=== PATIENT | female | born 1950 | race Caucasian/White ===

== ENCOUNTER → 2016-11-30 | Outpatient (CLI) | payer MEDICARE, BC ==
--- NOTE | 2016-11-30 08:21 | US ---
EXAMINATION TYPE: US thyroid st tissue head/neck DATE OF EXAM: 11/30/2016 7:14 AM COMPARISON: NONE CLINICAL HISTORY: 66-year-old female E04.1 THYROID NODULE. Follow up exam. TECHNIQUE: Multiple sonographic images of the thyroid gland are obtained. FINDINGS: GLAND SIZE: Right Lobe: 4.4 x 1.7 x 1.8 cm Overall Parenchyma: homogenous Left Lobe: left thyroidectomy, with an 8 mm focus of soft tissue. Isthmus Thickness: 0.3 cm The previously seen 4 mm nodule in the right upper pole is no longer identified. Bilateral neck scanned, no evidence of lymphadenopathy. IMPRESSION: 1. Status post left thyroidectomy. There is an 8 mm focus of soft tissue in the left thyroidectomy be d that could represent some residual or regenerate tissue. Correlate as to the reason for patient's p artial thyroidectomy. Follow-up as indicated. 2. The previously seen 4 mm right thyroid lobe nodule is no longer identified.
== END | disposition home or self-care (01) ==
LOC: RADUSWWP 07:01
PROVIDERS: ATTEND Family Medicine
DX: E89.0 Postprocedural hypothyroidism (principal)
CPT/HCPCS: 76536

== ENCOUNTER 2017-08-11 06:59 | Day surgery (SDC) | payer MEDICARE, BC ==
[2017-08-06 16:25] VITALS: BMI 25.8
[~2017-08-11 06:59] MED LIST: LACTATED RINGERS 1,000 ML IV SCH; LIDOCAINE 1% 20 ML VIAL (10MG/ML) FOR IV START INTRADERMA PRN
[2017-08-11] MEDS ORDERED: LACTATED RINGERS 1,000 ML IV ONE (07:08)
[2017-08-11 07:15] VITALS: RESP 16; TEMP 98.7
[2017-08-11] MEDS ORDERED: LIDOCAINE 1% INJ 10MG/ML (20 ML MDV) ONE (07:38)
[2017-08-11] MEDS ORDERED: fentaNYL (PF) 50 MCG/ML 2 ML AMP ONE (07:38)
[2017-08-11] MEDS ORDERED: PROPOFOL 10 MG/ML 20 ML VIAL IV ONE (07:38)
--- NOTE | 2017-08-11 08:03 | P.GSHP ---
History of Present Illness H&P Date: 08/11/17 Chief Complaint: Screening colonoscopy This is a 58-year-old female for from Dr. Aime Page. Patient has a history of Crohn's disease. Patient presents today for screening colonoscopy. Her last colonoscopy was over 8 years ago. Patient is a known history of anal stenosis. She is requesting anal dilation today. Past Medical History Past Medical History: Cancer, Hypertension, Thyroid Disorder Additional Past Medical History / Comment(s): Crohns, hx. thyroid cancer-2004, recent blood in stool History of Any Multi-Drug Resistant Organisms: C-DIFF Date of last positivie culture/infection: September 2016 MDRO Source:: Stool Past Surgical History: Adenoidectomy, Appendectomy, Bowel Resection, Hysterectomy, Orthopedic Surgery, Tonsillectomy Additional Past Surgical History / Comment(s): 2 COLON RESECTIONS, ISAAC CATARACTS REMOVED, left thyroidectomy, heel spur, bunionectomy Past Anesthesia/Blood Transfusion Reactions: No Reported Reaction Smoking Status: Never smoker - Past Family History Mother Family Medical History: Cancer Medications and Allergies Home Medications Medication Instructions Recorded Confirmed Type Levothyroxine Sodium [Synthroid] 88 mcg PO DAILY 10/06/14 08/11/17 History Lisinopril/Hydrochlorothiazide 0.5 tab PO DAILY 10/06/14 08/11/17 History [Lisinopril-Hctz 10-12.5 mg Tab] Multivit with Calcium,Iron,Min 1 each PO DAILY 08/06/17 08/11/17 History [Women's Multivitamin] Allergies Allergy/AdvReac Type Severity Reaction Status Date / Time No Known Allergies Allergy Verified 08/11/17 07:16 Surgical - Exam Vital Signs Temp Pulse Resp BP Pulse Ox 98.7 F 78 16 149/70 97 08/11/17 07:13 08/11/17 07:13 08/11/17 07:13 08/11/17 07:13 08/11/17 07:13 - General well developed, no distress - Eyes PERRL - ENT normal pinna - Neck no masses - Respiratory normal expansion - Cardiovascular Rhythm: regular - Abdomen Abdomen: soft, non tender Assessment and Plan Assessment: History of Crohn's disease Anal stenosis We'll perform colonoscopy with anal dilation.
--- NOTE | 2017-08-11 08:06 | P.OP ---
Date of Procedure: 08/11/17 Preoperative Diagnosis: Crohn's disease Screening colonoscopy Postoperative Diagnosis: Crohn's disease Sigmoid colon biopsy Anal stenosis Procedure(s) Performed: Colonoscopy Anal dilation Anesthesia: MAC Surgeon: Christian Yeung Pathology: other (Sigmoid colon) Condition: stable Disposition: PACU Description of Procedure: The patient was placed on the endoscopy table lateral position she received IV sedation. Digital rectal exam was performed which revealed anal stenosis. The anus was dilated with a index finger. At this point the pediatric colonoscope was then placed patient anus and passed throughout the colon. The scope could not be passed beyond the sigmoid colon secondary to inability of the bowel to dilate. The sigmoid colon appeared to be inflamed. A biopsies performed. The scope was then withdrawn. The rectum appeared normal. Scope was then withdrawn through the anus. At this point anal dilations performed by sequentially dilating the anus with the examining fingers. A second finger was placed in the anus. This held in position for 3 minutes. Next a third finger was placed anus and this was held in position for another 3 minutes. There is some minimal bleeding from the anusAppeared after the dilatation was completed patient sent to recovery room stable condition.
[2017-08-11 08:40] VITALS: BP 110/70; PULSE 58
== END 2017-08-11 09:10 | disposition home or self-care (01) ==
LOC: ORWHC2ENDO 06:59
PROVIDERS: ATTEND Surgery
DX: K51.90 Ulcerative colitis, unspecified, without complications (principal); K62.4 Stenosis of anus and rectum; I10 Essential (primary) hypertension; Z85.850 Personal history of malignant neoplasm of thyroid; E89.0 Postprocedural hypothyroidism; Z79.899 Other long term (current) drug therapy
CPT/HCPCS: 88305; 45331; J2001; J3010; J2704

== ENCOUNTER → 2017-08-18 | Outpatient (CLI) | payer MEDICARE, BC ==
--- NOTE | 2017-08-18 09:59 | CT ---
EXAMINATION TYPE: CT abdomen pelvis w con DATE OF EXAM: 08/18/2017 HISTORY: Crohn's disease CT DLP: 503.7mGycm Automated Exposure Control for Dose Reduction was Utilized. CONTRAST: CT scan of the abdomen and pelvis is performed with oral and with IV Contrast, patient injected with 80 mL of Visipaque 320. COMPARISON: None. FINDINGS: LUNG BASES: No significant abnormality is appreciated. LIVER/GB: No significant abnormality is appreciated. PANCREAS: No significant abnormality is seen. SPLEEN: No significant abnormality is seen. ADRENALS: No significant abnormality is seen. KIDNEYS: There is symmetric cortical medullary uptake with some symmetric delayed excretion in both k idneys. No gross hydronephrosis is seen bilaterally. BOWEL: Small hiatal hernia is present. The oral contrast reaches level of the mid transverse colon. T here is partial right-sided colectomy with sutures and contrast prominence at this level. Neoterminal ileum was not well-visualized. There is no suspicious small bowel dilatation. Some small bowel loops in the left upper to midabdomen show mild to moderate wall thickening, this could be product of poor distention as there is lack of enteric contrast at this level. Enteritis at this level cannot be exc luded. There is a small bowel diverticulum noted axial image 36 left lateral margin. There is moderat e to severe wall thickening centered in the mid sigmoid colon of the central pelvis with mild surroun ding fat stranding and ill-defined fluid centered near axial image 70. Extension into distal sigmoid colon is present. UTERUS/ADNEXA: Uterus is surgically absent or markedly atrophic in appearance. Remnant ovaries are fe lt present near axial image 74 and the adnexa. Pelvic phleboliths are seen. LYMPH NODES: No greater than 1cm abdominal or pelvic lymph nodes are appreciated. Some prominent but subcentimeter lymph nodes are seen at level of partial colectomy. OSSEOUS STRUCTURES: Spine is straightened on sagittal images. There is moderate disc space narrowing and vacuum disc phenomenon L1-L2 and L2-L3 levels. OTHER: No significant additional abnormality is seen. IMPRESSION: CT findings consistent with a mild to moderate active colitis at sigmoid colon level cons ider inflammatory change related to known Crohn's disease. Cannot exclude additional mild area of ent eritis left midabdomen in the mid jejunum.
== END | disposition home or self-care (01) ==
LOC: RADCTMAIN 06:27
PROVIDERS: ATTEND Surgery
DX: K50.00 Crohn's disease of small intestine without complications (principal)
CPT/HCPCS: 82565; 84520; 74177; 36415; Q9967

== ENCOUNTER → 2017-10-13 | Day surgery (SDC) | payer MEDICARE, BC ==
[~2017-10-13] MED LIST changes: +GLUCAGON 1 MG/ML VIAL IM STA; -LACTATED RINGERS 1,000 ML IV SCH; -LIDOCAINE 1% 20 ML VIAL (10MG/ML) FOR IV START INTRADERMA PRN
[2017-10-13 09:37] VITALS: TEMP 97.5
[2017-10-13 09:39] VITALS: BP 150/69; PULSE 68; RESP 18
--- NOTE | 2017-10-14 08:52 | MR ---
EXAMINATION TYPE: MR Enterography DATE OF EXAM: 10/13/2017 COMPARISON: CT abdomen and pelvis August 18, 2017. HISTORY: Crohn's disease of large intestine without complications per order. History of bowel resecti on 2 times over last 18 years. Occasional right-sided abdominal pain per patient. CONTRAST: Standard multiplanar, multisequence imaging of the abdomen is performed without and with IV contrast, patient is injected with 7 mL intravenous Gadavist gadolinium contrast. Oral Volumen and Water was g iven as per enterography protocol. FINDINGS: BOWEL: Visualized stomach show satisfactory distention without suspicious wall thickening. There is g ood distention of majority of the duodenal sweep without evidence of inflammation. Jejunal loops in l eft abdomen and ileal loops right abdomen show pretty satisfactory distention. There is no evidence o f active inflammation. No strictures are evident. There is suspected right hemicolectomy. The neoileum is likely along the right lateral margin of the remnant proximal colon. No evidence of suspicious wall thickening or inflammatory change at this leve l is identified. Up to level of sigmoid colon there is no evidence of active inflammation. Sigmoid colon shows similar to CT moderate fairly concentric wall thickening becomes more severe mid to distal aspects. This is over a length of roughly 15 to 20 cm. I get measurements of abnormal wall thickness up to 9 mm comer l series 701 image 138. There is moderate increase likely signal on T2 fat-saturated images in the wa ll. I do appreciate mild to moderate mucosal enhancement throughout the affected segment less promine nt than adjacent vessels. Some underlying ulceration is felt present. There are cystic outpouchings i n the wall or diverticula redemonstrated. There is area of mild narrowing or stricture distal aspect seen best sagittal image 6. There is no convincing evidence of asymmetric suspicious enhancement or v asa engorgement. (Comb sign). There is however irregular linear enhancement along left lateral margin extending towards left ovary through the adjacent fat seen best on postcontrast coronal images and a xial image 56 of diffusion weighted sequence. Sinus or fistula track to recent left ovary needs to BE considered. OTHER: Nondependent 1.1 cm gallstone in gallbladder axial image 40 series 301 is present. Visualized portion of pancreas, spleen, both adrenal glands as well as kidneys are unremarkable. Uter us is not visualized and presumed surgically absent. There is redemonstration of 1.6 x 1.2 cm simple appearing thin-walled cyst in the left adnexa unchang ed from recent CT. This is noted abnormal finding in postmenopausal female. IMPRESSION: There is moderate to severe Crohn's disease activity at level of sigmoid colon as detailed above. Berenice pect sinus tract or fistula towards left ovary and may be accounting for the thin-walled 1.6 cm cysti c lesion in the left adnexa. No definitive skip lesions identified.
== END ==
LOC: RADMRIMAIN 09:08
PROVIDERS: ATTEND Internal Medicine Gastroenterology
DX: K50.10 Crohn's disease of large intestine without complications (principal); N83.8 Other noninflammatory disorders of ovary, fallopian tube and broad ligament
CPT/HCPCS: 82565; 96372; 36415; 72197; 74183; J1610; A9581

== ENCOUNTER → 2017-10-23 | Outpatient (CLI) | payer MEDICARE, BC ==
[2017-10-23 08:47] LABS: Basophils % (A) 1 %; Eosinophils # (A) 0.2 k/uL (0-0.7); Eosinophils % (A) 2 %; HCT 34.7 % (34.0-46.0); HGB 10.9 gm/dL (11.4-16.0); Lymphocytes # (A) 1.4 k/uL (1.0-4.8); Lymphocytes % (A) 15 %; MCH 25.6 pg (25.0-35.0); MCHC 31.3 g/dL (31.0-37.0); MCV 81.8 fL (80.0-100.0); Mean Platelet Volume 7.1; Monocytes # (A) 0.5 k/uL (0-1.0); Monocytes % (A) 5 %; Neutrophils % (A) 76 %; Platelet Count 396 k/uL (150-450); RBC 4.25 m/uL (3.80-5.40); RDW 14.7 % (11.5-15.5); WBC 9.2 k/uL (3.8-10.6)
[2017-10-23 09:37] LABS: Erythrocyte Sedimentation Rate 29 mm/hr (0-20)
[2017-10-23 09:55] LABS: Albumin 3.7 g/dL (3.5-5.0); C Reactive Protein 19.1 mg/L (<10.0); Calcium 9.4 mg/dL (8.4-10.2); Potassium 4.5 mmol/L (3.5-5.1); Total Bilirubin 0.3 mg/dL (0.2-1.3); Total Protein 6.6 g/dL (6.3-8.2)
== END ==
LOC: LABWHC1 08:09
PROVIDERS: ATTEND Internal Medicine Gastroenterology
DX: K50.10 Crohn's disease of large intestine without complications (principal)
CPT/HCPCS: 36415; 80053; 85025; 85652; 86140; 86480; 86704; 87340

== ENCOUNTER → 2018-04-14 | Outpatient (CLI) | payer MEDICARE, BC ==
--- NOTE | 2018-04-14 13:40 | CT ---
EXAMINATION TYPE: CT abdomen wo/w con DATE OF EXAM: 04/14/2018 COMPARISON: 08/18/2017 INDICATION: abdominal pain DLP: 648.3 mGycm, Automated exposure control for dose reduction was used. CONTRAST: 80mL mL of Isovue 300. Study performed with Oral Contrast TECHNIQUE: Axial images were obtained from above the diaphragm to the pubic rami in the axial plane a t 5 mm thick sections. Reconstructed images are reviewed on the computer in the coronal plane. FINDINGS: Limited CT sections are obtained the lung bases. The lung bases are clear. CT ABDOMEN: Liver: Normal Spleen: Normal Pancreas: Normal Adrenal glands: The adrenal glands are normal. Gallbladder: Normal Kidneys: No masses are evident. No hydronephrosis is present. No cysts are present. Delayed images were obtained through the kidneys, which remain unremarkable. Aorta: Vascular calcifications within the aorta. Inferior vena cava: Normal. Bowel loops: Loops of bowel distended with oral contrast appear normal. Partial right hemicolectomy m ay have been performed. Anastomosis appears unremarkable. IMPRESSIONS: 1. No suspicious abnormality to account for abdominal pain.
== END | disposition home or self-care (01) ==
LOC: RADCTMAIN 07:20
PROVIDERS: ATTEND Family Medicine
DX: R10.9 Unspecified abdominal pain (principal)
CPT/HCPCS: 82565; 84520; 74170; 36415; Q9967

== ENCOUNTER → 2018-04-21 | Outpatient (CLI) | payer MEDICARE, BC ==
--- NOTE | 2018-04-21 07:30 | US ---
EXAMINATION TYPE: US thyroid st tissue head/neck DATE OF EXAM: 04/21/2018 COMPARISON: 2017 CLINICAL HISTORY: E04.1 Thyroid nodule. Thyroidectomy 2003 cancer GLAND SIZE: Right Lobe: 4.4x2.0x2.0 cm Overall Parenchyma: homogenous Left Lobe: 0.8x0.5x0.4 cm thyroidectomy residual 06/30/2017 not reported. The appearance appears stable. 11/30/2016: 0.8 cm size Overall Parenchyma: homogeneous Isthmus Thickness: 0.3 cm NODULES RIGHT: # of nodules measured on right: 0 LEFT: # of nodules measured on left: 0 ISTHMUS: # of nodules measured in the isthmus: 0 Bilateral neck scanned, no evidence of lymphadenopathy. IMPRESSION: 1. Postsurgical left lobe thyroidectomy with normal right lobe thyroid. 2. Examination appears stable from 06/30/2017.
--- NOTE | 2018-04-22 13:52 | MM ---
Reason for exam: screening (asymptomatic). Last mammogram was performed 2 years ago. History: Patient is postmenopausal and history of other cancer. Took hormonal contraceptives for 2 years beginning at age 18. Took estrogen for 15 years. Physical Findings: A clinical breast exam by your physician is recommended on an annual basis and results should be correlated with mammographic findings. MG 3D Screening Mammo W/Cad Bilateral CC and MLO view(s) were taken. Prior study comparison: April 10, 2016, bilateral MG 3d screening mammo w/cad. September 04, 2014, bilateral MG screening mammo w CAD. The breast tissue is heterogeneously dense. This may lower the sensitivity of mammography. Benign appearing bilateral calcifications. No suspicious abnormality. Post biopsy change on the right breast. ASSESSMENT: Benign, BI-RAD 2 RECOMMENDATION: Routine screening mammogram of both breasts in 1 year.
== END | disposition home or self-care (01) ==
LOC: RADUSWWP 06:55
PROVIDERS: ATTEND Family Medicine
DX: Z12.31 Encounter for screening mammogram for malignant neoplasm of breast (principal); Z90.89 Acquired absence of other organs; Z98.890 Other specified postprocedural states
CPT/HCPCS: 76536; 77063; 77067

== ENCOUNTER 2019-03-01 07:56 | Day surgery (SDC) | payer MEDICARE, BC ==
[2019-02-23 09:57] VITALS: BMI 24.7
[~2019-03-01 07:56] MED LIST changes: -GLUCAGON 1 MG/ML VIAL IM STA; +LACTATED RINGERS 1,000 ML IV SCH
[2019-03-01] MEDS ORDERED: LIDOCAINE 1% 20 ML VIAL (10MG/ML) FOR IV START INTRADERMA ONE (08:30)
[2019-03-01] MEDS ORDERED: PROPOFOL 10 MG/ML 20 ML VIAL IV ONE (08:48)
[2019-03-01 08:51] VITALS: TEMP 97.1
[2019-03-01] MEDS ORDERED: IV FLUID CONTINUATION 1,000 ML IV ONE (09:13)
[2019-03-01 09:16] VITALS: RESP 16
--- NOTE | 2019-03-01 09:16 | P.PCN ---
Date of Procedure: 03/01/19 Procedure(s) Performed: BRIEF HISTORY: Patient is a 68-year-old pleasant female, scheduled for an elective colonoscopy as a part of surveillance of long-standing history of Crohn's colitis diagnosed in 1999. She status post 2 surgeries one of which was easily cecectomy another 1 small bowel resection in 2009. Last colonoscopy by Dr. Yeung in August 2017 showed anal stenosis and severe inflammation the sigmoid colon and the scope could not be advanced to this area. Biopsies showed severe chronic active inflammation. The patient was a thickened esophagus on Remicade infusions in November 2017 and since then has been doing well. MR enterography in September 2017 showed severe inflammation involving the sigmoid colon. She is scheduled for colonoscopy today. PROCEDURE PERFORMED: Colonoscopy biopsy. PREOPERATIVE DIAGNOSIS: History of Crohn's colitis diagnosed in 1999/sigmoid stricture. IV sedation per Anesthesia. PROCEDURE: After informed consent was obtained, the patient, was brought into the endoscopy unit. IV sedation was administered by Anesthesia under continuous monitoring. Digital rectal examination was normal. Initially the Olympus CF-160 flexible video colonoscope was then inserted in the rectum, gradually advanced into the rectum; there was a stricture identified. With gentle manipulation and careful maneuvering as well as abdominal pressure I was slowly able to advance the scope through the stricture into the proximal colon and into the right colon. At this time the likely anastomosis was visualized that had 2 superficial erosions but no stenosis. Masses were done from this area. Mucosa of the ascending colon, transverse colon, descending colon, appeared normal. There was significant inflammation with stricture, cobblestoning of the mucosa, friability involving the distal sigmoid colon extending from 15-25 cm from the anal verge and biopsies were done from this area. Rectum appeared normal Retroflexion was performed in the rectum and no lesions were seen. The patient tolerated the procedure well. IMPRESSION: Sigmoid stricture with severe inflammation, cobblestoning of the mucosa with erosions ulcerations and friability extending from 15-25 cm from the anal verge consistent with active Crohn's colitis Rest of the of the colon appeared normal Mild information of the ileocolonic anastomosis but no strictures seen. . RECOMMENDATIONS: Findings of this examination were discussed with the patient as well as her family. She was advised to follow with the biopsy results. She will continue Remicade infusions every 8 weeks. She will be seen in office in 2-3 weeks.
[2019-03-01 10:05] VITALS: BP 125/67; PULSE 65
== END 2019-03-01 10:36 | disposition home or self-care (01) ==
LOC: ORWHC2ENDO 07:56
PROVIDERS: ATTEND Internal Medicine Gastroenterology
DX: K50.10 Crohn's disease of large intestine without complications (principal); K63.3 Ulcer of intestine; I10 Essential (primary) hypertension; E07.9 Disorder of thyroid, unspecified; Z79.890 Hormone replacement therapy; Z79.899 Other long term (current) drug therapy
CPT/HCPCS: 88305; 45380; J2704

== ENCOUNTER → 2019-04-13 | Outpatient (CLI) | payer MEDICARE, BC ==
--- NOTE | 2019-04-13 07:57 | US ---
EXAMINATION TYPE: US thyroid st tissue head/neck DATE OF EXAM: 04/13/2019 COMPARISON: 04/21/2018 CLINICAL HISTORY: E04.1 THYROID NODULE. Left thyroid lobe removed due to hx Ca 2003 GLAND SIZE: Right Lobe: 5.0 x 1.7 x 1.8 cm Overall Parenchyma: heterogenous Left Lobe reminent: 1.0 x 0.5 x 0.7 cm Overall Parenchyma: homogeneous Isthmus Thickness: 0.3 cm NODULES RIGHT: # of nodules measured on right: 0 LEFT: # of nodules measured on left: 0 ISTHMUS: # of nodules measured in the isthmus: 0 Bilateral neck scanned, no evidence of lymphadenopathy. IMPRESSION: The residual left thyroid glandular tissue appears slightly more prominent than on the prior exam how ever no new suspicious nodule is seen nor adenopathy.
== END | disposition home or self-care (01) ==
LOC: RADUSWWP 06:58
PROVIDERS: ATTEND Family Medicine
DX: E04.1 Nontoxic single thyroid nodule (principal)
CPT/HCPCS: 76536

== ENCOUNTER → 2019-06-14 | Outpatient (CLI) | payer MEDICARE, BC ==
--- NOTE | 2019-06-15 08:34 | CT ---
EXAMINATION TYPE: CT abdomen pelvis wo con DATE OF EXAM: 06/14/2019 HISTORY: Generalized abdominal pain and diverticulitis, history of Crohn's disease. CT DLP: 613 mGycm. Automated Exposure Control for Dose Reduction was Utilized. TECHNIQUE: CT scan of the abdomen and pelvis is performed with oral but without IV contrast. COMPARISON: Prior CT abdomen April 14, 2018 and older studies. FINDINGS: Within the limitations of a non-contrast study, the following observations are made. LUNG BASES: No significant abnormality is appreciated. LIVER/GB: No significant abnormality is appreciated. PANCREAS: No significant abnormality is seen. SPLEEN: No significant abnormality is seen. ADRENALS: No significant abnormality is seen. KIDNEYS: Some cortical thinning both kidneys. No renal calculi or hydronephrosis is seen bilaterally. Scattered pelvic phleboliths. No intraluminal calculus in bladder. BOWEL: Oral contrast reaches level of the mid to distal transverse colon. Surgical changes from appen dectomy and suspected partial proximal colonic resection at base of neocecum. No suspicious small bow el dilatation. Some prominence of fecal material in the proximal sigmoid colon anterior left pelvis. There is moderate to severe concentric wall thickening distal to this axial image 66 and 67 in the ce ntral pelvis. Occasional diverticula is present. Some prominence of fecal material in the rectum. Con trast filled prominence of the neocecum. Neoterminal ileum is again not well seen probably within nor mal limits. GENITAL ORGANS: Uterus surgically absent. Adjacent pelvic phleboliths redemonstrated LYMPH NODES: No greater than 1cm abdominal or pelvic lymph nodes are appreciated. OSSEOUS STRUCTURES: Moderate disc space narrowing L1-L2 and L2-L3 levels redemonstrated OTHER: No sig nificant additional abnormality is seen. IMPRESSION: Cannot exclude recurrent acute colitis at sigmoid colon level. Underlying neoplasm not ex cluded. Follow-up colonoscopy advised if it has not been performed in last 3 years after treatment. O verall nonobstructive bowel gas pattern. Moderate distal colonic fecal stasis noted.
== END | disposition home or self-care (01) ==
LOC: RADCTMAIN 14:30
PROVIDERS: ATTEND Family Medicine
DX: K59.8 Other specified functional intestinal disorders (principal)
CPT/HCPCS: 74176

== ENCOUNTER → 2020-01-02 | Outpatient (CLI) | payer MEDICARE, BC ==
--- NOTE | 2020-01-03 10:40 | ECHOF ---
Referral Reason:I10 Hypertension MEASUREMENTS -------- HEIGHT: 167.6 cm WEIGHT: 72.6 kg BP: RVIDd: 2.8 cm (< 3.3) IVSd: 0.9 cm (0.6 - 1.1) LVIDd: 5.2 cm (3.9 - 5.3) LVPWd: 0.9 cm (0.6 - 1.1) IVSs: 1.5 cm LVIDs: 2.8 cm LVPWs: 1.7 cm LAESV Index (A-L): 23.38 ml/m Ao Diam: 2.8 cm (2.0 - 3.7) AV Cusp: 2.0 cm (1.5 - 2.6) LA Diam: 3.6 cm (2.7 - 3.8) MV EXCURSION: 8.330 mm (> 18.000) MV EF SLOPE: 75 mm/s (70 - 150) EPSS: 0.7 cm MV E Eyad: 0.83 m/s MV DecT: 286 ms MV A Eyad: 0.94 m/s MV E/A Ratio: 0.89 RAP: 5.00 mmHg RVSP: 15.06 mmHg TAPSE: 30.89 mm FINDINGS -------- Sinus rhythm. This was a technically good study. The left ventricular size is normal. Left ventricular wall thickness is normal. Overall left vent ricular systolic function is normal with, an EF between 55 - 60 %. The diastolic filling pattern is normal for the age of the patient 10.27. The right ventricle is normal in size. The right ventricular systolic function is normal. The left atrial size is normal. Normal LA size by volume 22+/-6 ml/m2. The right atrial size is normal. Interatrial and interventricular septum intact. The aortic valve is trileaflet and appears structurally normal. The mitral valve is normal. There is trace mitral regurgitation. The tricuspid valve appears structurally normal. Trace tricuspid regurgitation present. Right catherine tricular systolic pressure is normal at < 35 mmHg. There is no pulmonic regurgitation present. The aortic root size is normal. Normal inferior vena cava with normal inspiratory collapse consistent with estimated right atrial pre ssure of 5 mmHg. Echo free space indicative of a pericardial fat pad. CONCLUSIONS -------- 1. Sinus rhythm. 2. This was a technically good study. 3. The left ventricular size is normal. 4. Left ventricular wall thickness is normal. 5. Overall left ventricular systolic function is normal with, an EF between 55 - 60 %. 6. The diastolic filling pattern is normal for the age of the patient 10.27 7. The right ventricle is normal in size. 8. The right ventricular systolic function is normal. 9. The left atrial size is normal. 10. Normal LA size by volume 22+/-6 ml/m2. 11. The right atrial size is normal. 12. Interatrial and interventricular septum intact. 13. The aortic valve is trileaflet and appears structurally normal. 14. The mitral valve is normal. 15. There is trace mitral regurgitation. 16. The tricuspid valve appears structurally normal. 17. Trace tricuspid regurgitation present. 18. Right ventricular systolic pressure is normal at < 35 mmHg. 19. There is no pulmonic regurgitation present. 20. The aortic root size is normal. 21. Normal inferior vena cava with normal inspiratory collapse consistent with estimated right atrial pressure of 5 mmHg. 22. Echo free space indicative of a pericardial fat pad. BRIDGE CONTRACTOR: Meri Lopez RDCS
== END | disposition home or self-care (01) ==
LOC: RADECHMAIN 12:50
PROVIDERS: ATTEND Nurse Practitioner Family
DX: I10 Essential (primary) hypertension (principal); Z91.041 Radiographic dye allergy status
CPT/HCPCS: 93306

== ENCOUNTER → 2020-04-02 | Outpatient (CLI) | payer MEDICARE, BC ==
--- NOTE | 2020-04-02 08:45 | US ---
EXAMINATION TYPE: US thyroid st tissue head/neck DATE OF EXAM: 04/02/2020 COMPARISON: 04/13/2019 CLINICAL HISTORY: 69-year-old female E04.1 THYROID NODULE. Left thyroidectomy TECHNIQUE: Multiple sonographic images of the thyroid gland are obtained. FINDINGS: GLAND SIZE: Right Lobe: 4.7 x 2.0 x 1.9 cm Overall Parenchyma: homogenous Left Lobe: 1.0 x 0.5 x 0.6 cm tissue seen in thyroid bed post left thyroidectomy Overall Parenchyma: homogeneous area Isthmus Thickness: 0.3 cm NODULES RIGHT: # of nodules measured on right: 0 LEFT: # of nodules measured on left: 0 ISTHMUS: # of nodules measured in the isthmus: 0 Bilateral neck scanned: lymph node seen superior to right thyroid = 1.0 x 0.7 x 0.3cm. This is promin ent but nonenlarged. There is fatty hilum and thin uniform cortex. IMPRESSION: 1. Status post left thyroidectomy with a small amount of residual tissue in the left thyroidectomy be d measuring 10 x 6 mm (versus 10 x 7 mm, previously), not significantly changed. 2. A prominent but nonenlarged 7 mm right-sided lymph node above the thyroid gland has benign feature s.
== END | disposition home or self-care (01) ==
LOC: RADUSWWP 08:08
PROVIDERS: ATTEND Family Medicine
DX: E04.1 Nontoxic single thyroid nodule (principal); Z90.89 Acquired absence of other organs
CPT/HCPCS: 76536

== ENCOUNTER → 2020-04-25 | Outpatient (CLI) | payer MEDICARE, BC ==
--- NOTE | 2020-04-25 13:06 | US ---
EXAMINATION TYPE: US kidneys/renal and bladder DATE OF EXAM: 04/25/2020 COMPARISON: CT 2019 CLINICAL HISTORY: N18.32 chronic kidney disease, stage 3. CKD stage 3 EXAM MEASUREMENTS: Right Kidney: 8.8 x 4.1 x 4.2 cm Left Kidney: 8.6 x 4.8 x 3.9 cm Right Kidney: measures small in size, no hydronephrosis or masses seen Left Kidney: measures small in size, no hydronephrosis or masses seen Bladder: not fully distended, appears wnl as seen Bilateral Jets seen: yes IMPRESSION: 1. Normal renal ultrasound. 2. Incidental note is made of cholelithiasis.
== END | disposition home or self-care (01) ==
LOC: RADUSWWP 12:29
PROVIDERS: ATTEND Internal Medicine Nephrology
DX: N18.32 Chronic kidney disease, stage 3b (principal)
CPT/HCPCS: 76770

== ENCOUNTER → 2020-10-24 | Outpatient (CLI) | payer MEDICARE, BC ==
[2020-10-24 11:40] LABS: Appearance,Urine Clear (Clear); Bilirubin,Urine Negative (Negative); Blood,Urine Negative (Negative); Color,Urine Yellow; Glucose,Urine (UA) Negative (Negative); Hyaline Casts,Urine 4 /lpf (0-2); Ketones,Urine Negative (Negative); Leukocyte Esterase,Urine Small (Negative); Mucus,Urine Occasional /hpf; Nitrite,Urine Negative (Negative); Protein,Urine Trace (Negative); RBC,Urine 1 /hpf (0-5); Specific Gravity,Urine 1.016 (1.001-1.035); Squamous Epithelial Cell,Urine 2 /hpf (0-4); Urobilinogen,Urine <2.0 mg/dL (<2.0); WBC,Urine 4 /hpf (0-5)
[2020-10-24 11:45] LABS: Creatinine,Urine Random 205.7 mg/dL; Protein/Creatinine Ratio,Urine 0.053
[2020-10-24 20:02] LABS: Basophils # (A) 0.03 X 10*3/uL (0.00-0.10); Basophils % (A) 0.4 %; Eosinophils # (A) 0.15 X 10*3/uL (0.04-0.35); HCT 38.9 % (37.2-46.3); HGB 12.1 g/dL (12.0-15.0); Lymphocytes # (A) 1.35 X 10*3/uL (0.90-5.00); Lymphocytes % (A) 18.3 %; MCH 28.9 pg (27.0-32.0); MCHC 31.1 g/dL (32.0-37.0); MCV 93.1 fL (80.0-97.0); Mean Platelet Volume 10.2 fL (9.5-12.2); Monocytes # (A) 0.73 X 10*3/uL (0.20-1.00); Monocytes % (A) 9.9 %; Neutrophils # (A) 5.08 X 10*3/uL (1.80-7.70); Neutrophils % (A) 69.1 %; Platelet Count 354 X 10*3/uL (140-440); RBC 4.18 X 10*6/uL (4.10-5.20); RDW 13.3 % (11.5-14.5); WBC 7.36 X 10*3/uL (4.50-10.00)
[2020-10-24 22:17] LABS: % Iron Saturation 13.28 (12.00-45.00); African American GFR (CKD) 36.9 (60.0-200.0); Albumin 4.5 g/dL (3.80-4.90); Anion Gap 9.8 mmol/L (4.00-12.00); BUN/Creat Ratio 17.5 Ratio (12.00-20.00); Calcium 9.6 mg/dL (8.7-10.3); Carbon Dioxide 24.2 mmol/L (21.6-31.8); Magnesium 2.2 mg/dL (1.5-2.4); Non-African American GFR(CKD) 31.9 (60.0-200.0); Phosphorus 4.7 mg/dL (2.4-5.1); Potassium 4.9 mmol/L (3.5-5.5); Uric Acid 6.3 mg/dL (2.9-7.7)
[2020-10-24 22:25] LABS: Ferritin 23.8 ng/mL (10.0-291.0)
== END | disposition home or self-care (01) ==
LOC: LABWHC1 09:48
PROVIDERS: ATTEND Internal Medicine Nephrology
DX: E55.9 Vitamin D deficiency, unspecified (principal); D63.1 Anemia in chronic kidney disease; N18.32 Chronic kidney disease, stage 3b; N25.81 Secondary hyperparathyroidism of renal origin; N39.0 Urinary tract infection, site not specified; M10.9 Gout, unspecified; R80.9 Proteinuria, unspecified
CPT/HCPCS: 36415; 80048; 81001; 82040; 82306; 82570; 82728; 83540; 83550; 83735; 83970; 84100; 84156; 84550; 85025

== ENCOUNTER → 2021-02-21 | Outpatient (CLI) | payer MEDICARE, BC ==
[2021-02-21 12:02] LABS: Appearance,Urine Clear (Clear); Bilirubin,Urine Negative (Negative); Blood,Urine Negative (Negative); Color,Urine Light Yellow; Glucose,Urine (UA) Negative (Negative); Ketones,Urine Negative (Negative); Leukocyte Esterase,Urine Negative (Negative); Nitrite,Urine Negative (Negative); Protein,Urine Negative (Negative); Specific Gravity,Urine 1.005 (1.001-1.035); Urobilinogen,Urine <2.0 mg/dL (<2.0)
[2021-02-21 12:36] LABS: Creatinine,Urine Random 74.7 mg/dL; Protein/Creatinine Ratio,Urine 0.268
[2021-02-21 18:25] LABS: Basophils # (A) 0.04 X 10*3/uL (0.00-0.10); Basophils % (A) 0.4 %; Eosinophils # (A) 0.14 X 10*3/uL (0.04-0.35); Eosinophils % (A) 1.5 %; HCT 37.2 % (37.2-46.3); HGB 11.9 g/dL (12.0-15.0); Lymphocytes # (A) 1.45 X 10*3/uL (0.90-5.00); Lymphocytes % (A) 15.9 %; MCH 30.4 pg (27.0-32.0); MCV 95.1 fL (80.0-97.0); Mean Platelet Volume 10.4 fL (9.5-12.2); Monocytes # (A) 0.77 X 10*3/uL (0.20-1.00); Monocytes % (A) 8.4 %; Neutrophils % (A) 73.5 %; Platelet Count 282 X 10*3/uL (140-440); RBC 3.91 X 10*6/uL (4.10-5.20); RDW 12.8 % (11.5-14.5); WBC 9.13 X 10*3/uL (4.50-10.00)
[2021-02-21 21:42] LABS: Ferritin 211.3 ng/mL (10.0-291.0)
[2021-02-21 21:44] LABS: % Iron Saturation 37.04 (12.00-45.00); African American GFR (CKD) 34.3 (60.0-200.0); Albumin 4.4 g/dL (3.80-4.90); Anion Gap 9.4 mmol/L (4.00-12.00); BUN/Creat Ratio 14.71 Ratio (12.00-20.00); Calcium 9.2 mg/dL (8.7-10.3); Carbon Dioxide 25.6 mmol/L (21.6-31.8); Magnesium 2.4 mg/dL (1.5-2.4); Non-African American GFR(CKD) 29.6 (60.0-200.0); Phosphorus 4.1 mg/dL (2.4-5.1); Potassium 4.1 mmol/L (3.5-5.5); Uric Acid 6.2 mg/dL (2.9-7.7)
== END | disposition home or self-care (01) ==
LOC: LABWHC1 10:57
PROVIDERS: ATTEND Internal Medicine Nephrology
DX: N18.32 Chronic kidney disease, stage 3b (principal); E61.1 Iron deficiency; E55.9 Vitamin D deficiency, unspecified; M10.9 Gout, unspecified; N39.0 Urinary tract infection, site not specified; R80.9 Proteinuria, unspecified
CPT/HCPCS: 36415; 80048; 81003; 82040; 82306; 82570; 82728; 83540; 83550; 83735; 83970; 84100; 84156; 84550; 85025

== ENCOUNTER 2021-04-25 11:16 | Day surgery (SDC) | payer MEDICARE, BC ==
[2021-04-22 13:59] VITALS: BMI 24.3
[2021-04-25 12:21] VITALS: RESP 16; TEMP 97.8
[2021-04-25] MEDS ORDERED: LIDOCAINE 1% (10MG/ML) FOR IV START SQ ONE (12:29)
[2021-04-25] MEDS: LACTATED RINGERS 1,000 ML IV SCH ×2 (12:29→13:15)
[2021-04-25] MEDS ORDERED: PROPOFOL 10 MG/ML 20 ML VIAL IV ONE (13:17)
--- NOTE | 2021-04-25 13:41 | P.PCN ---
Date of Procedure: 04/25/21 Procedure(s) Performed: BRIEF HISTORY: Patient is a []-year-old pleasant [] scheduled for an elective colonoscopy as a part of surveillance of long-standing history of Crohn's colitis diagnosed in 1999. She had 2 bowel surgeries the last one was in 2009. She did have a colonoscopy in February 2019 with relief sigmoid stricture with severe inflammation and cobblestoning of the mucosa and the scope couldn't be advanced through the stricture and the rest of the colon appeared normal. She has been on Remicade infusions every 8 weeks and remains in clinical remission. PROCEDURE PERFORMED: Attempted colonoscopy up to the sigmoid colon PREOPERATIVE DIAGNOSIS: Long-standing history of Crohn's colitis. IV sedation per Anesthesia. PROCEDURE: After informed consent was obtained, the patient, was brought into the endoscopy unit. IV sedation was administered by Anesthesia under continuous monitoring. Digital rectal examination was normal. Initially the Olympus CF-160 flexible video pediatric colonoscope was then inserted in the rectum, gradually advanced into the sigmoid colon and there was a tight stricture identified. At this time the scope was removed and an upper endoscopy was introduced into the rectum and gently advanced into the sigmoid colon and approximately 22 cm from the anal verge there was a tight stricture and despite multiple attempts I was not able to pass the scope through the stricture. The mucosa in the stricture appeared slightly friable but there was no active inflammation noted. There Were pseudopolyps noted in the area. Rectum appeared normal. Retroflexion was performed in the rectum and no lesions were seen. The patient tolerated the procedure well. IMPRESSION: Tight Sigmoid stricture at 22 cm from the anal verge and the scope could not be advanced through the stricture. Previously noted inflammatory changes in the sigmoid colon has resolved. The rectum and distal sigmoid colon appeared normal RECOMMENDATIONS: Findings of this examination were discussed with the patient as well as a family. At this time will continue with Remicade infusions every 8 weeks and monitor symptoms closely. We will consider surgical resection only if she becomes symptomatic in the future. She'll be seen in office in 3-4 weeks..
[2021-04-25 14:04] VITALS: BP 120/66; PULSE 73
== END 2021-04-25 14:35 | disposition home or self-care (01) ==
LOC: ORWHC2ENDO 11:16
PROVIDERS: ATTEND Internal Medicine Gastroenterology
DX: K56.699 Other intestinal obstruction unspecified as to partial versus complete obstruction (principal); K50.10 Crohn's disease of large intestine without complications; I12.9 Hypertensive chronic kidney disease with stage 1 through stage 4 chronic kidney disease, or unspecified chronic kidney disease; N18.30 Chronic kidney disease, stage 3 unspecified; E07.9 Disorder of thyroid, unspecified; M19.90 Unspecified osteoarthritis, unspecified site; Z98.890 Other specified postprocedural states; Z79.890 Hormone replacement therapy; Z79.899 Other long term (current) drug therapy
CPT/HCPCS: 45330; J2704

== ENCOUNTER → 2021-06-10 | Outpatient (CLI) | payer MEDICARE, BC ==
--- NOTE | 2021-06-10 12:46 | XR ---
EXAMINATION TYPE: XR tibia fibula LT DATE OF EXAM: 06/10/2021 CLINICAL HISTORY: pain TECHNIQUE: AP and lateral images of the left tibia and fibula are obtained. COMPARISON: None. FINDINGS: There is no acute fracture/dislocation evident. The joint spaces appear within normal sanders its. The overlying soft tissue appears unremarkable. IMPRESSION: There is no acute fracture or dislocation seen. ICD 10 NO FRACTURE, INITIAL EVALUATION
== END | disposition home or self-care (01) ==
LOC: RADXRMAIN 12:17
PROVIDERS: ATTEND Family Medicine
DX: M79.662 Pain in left lower leg (principal)

== ENCOUNTER → 2021-06-24 | Outpatient (CLI) | payer MEDICARE, BC ==
[2021-06-24 12:43] LABS: Appearance,Urine Clear (Clear); Bacteria,Urine Rare /hpf; Bilirubin,Urine Negative (Negative); Blood,Urine Negative (Negative); Color,Urine Light Yellow; Glucose,Urine (UA) Negative (Negative); Hyaline Casts,Urine 1 /lpf (0-2); Ketones,Urine Negative (Negative); Leukocyte Esterase,Urine Trace (Negative); Mucus,Urine Rare /hpf; Nitrite,Urine Negative (Negative); Protein,Urine Negative (Negative); RBC,Urine <1 /hpf (0-5); Specific Gravity,Urine 1.008 (1.001-1.035); Squamous Epithelial Cell,Urine <1 /hpf (0-4); Urobilinogen,Urine <2.0 mg/dL (<2.0); WBC,Urine 1 /hpf (0-5)
[2021-06-24 12:44] LABS: Protein/Creatinine Ratio,Urine 0.155
[2021-06-24 18:39] LABS: Basophils # (A) 0.04 X 10*3/uL (0.00-0.10); Basophils % (A) 0.4 %; Eosinophils # (A) 0.08 X 10*3/uL (0.04-0.35); Eosinophils % (A) 0.8 %; HCT 38.4 % (37.2-46.3); HGB 12.1 g/dL (12.0-15.0); Lymphocytes # (A) 1.27 X 10*3/uL (0.90-5.00); Lymphocytes % (A) 12.1 %; MCH 30.9 pg (27.0-32.0); MCHC 31.5 g/dL (32.0-37.0); Mean Platelet Volume 10.2 fL (9.5-12.2); Monocytes # (A) 0.76 X 10*3/uL (0.20-1.00); Monocytes % (A) 7.2 %; Neutrophils # (A) 8.28 X 10*3/uL (1.80-7.70); Neutrophils % (A) 78.7 %; Platelet Count 316 X 10*3/uL (140-440); RBC 3.92 X 10*6/uL (4.10-5.20); RDW 12.6 % (11.5-14.5); WBC 10.51 X 10*3/uL (4.50-10.00)
[2021-06-25 02:17] LABS: % Iron Saturation 36.54 (12.00-45.00); Albumin 4.1 g/dL (3.8-4.9); Anion Gap 13.1 mmol/L (10.00-18.00); BUN/Creat Ratio 17.25 Ratio (12.00-20.00); Blood Urea Nitrogen 22.6 mg/dL (9.0-27.0); Calcium 9.1 mg/dL (8.7-10.3); Carbon Dioxide 21.9 mmol/L (20.0-27.5); Magnesium 2.1 mg/dL (1.5-2.4); Non-African American GFR(CKD) 40.6 (60.0-200.0); Phosphorus 3.9 mg/dL (2.4-5.1); Potassium 3.8 mmol/L (3.5-5.5); Uric Acid 5.4 mg/dL (2.9-7.7)
== END | disposition home or self-care (01) ==
LOC: LABWHC1 10:27
PROVIDERS: ATTEND Nurse Practitioner Family
DX: E55.9 Vitamin D deficiency, unspecified (principal); E61.1 Iron deficiency; M10.9 Gout, unspecified; N39.0 Urinary tract infection, site not specified; N18.32 Chronic kidney disease, stage 3b; R80.9 Proteinuria, unspecified
CPT/HCPCS: 36415; 80048; 81001; 82040; 82306; 82570; 82728; 83540; 83550; 83735; 83970; 84100; 84156; 84550; 85025

== ENCOUNTER → 2022-01-02 | Outpatient (CLI) | payer MEDICARE ==
[2022-01-02 10:54] LABS: Creatinine,Urine Random 41.8 mg/dL; Protein/Creatinine Ratio,Urine 0.311
[2022-01-02 14:36] LABS: Basophils # (A) 0.04 X 10*3/uL (0.00-0.10); Basophils % (A) 0.4 %; Eosinophils # (A) 0.12 X 10*3/uL (0.04-0.35); Eosinophils % (A) 1.2 %; HCT 35.9 % (37.2-46.3); HGB 11.2 g/dL (12.0-15.0); Immature Grans, Automated 0.4 %; Lymphocytes # (A) 1.46 X 10*3/uL (0.90-5.00); Lymphocytes % (A) 14.9 %; MCH 29.8 pg (27.0-32.0); MCHC 31.2 g/dL (32.0-37.0); MCV 95.5 fL (80.0-97.0); Monocytes # (A) 0.83 X 10*3/uL (0.20-1.00); Monocytes % (A) 8.4 %; NRBC Per 100 WBC 0 /100 WBCS (0.0-0.0); Neutrophils # (A) 7.34 X 10*3/uL (1.80-7.70); Neutrophils % (A) 74.7 %; Platelet Count 321 X 10*3/uL (140-440); RBC 3.76 X 10*6/uL (4.10-5.20); RDW 12.3 % (11.5-14.5); WBC 9.83 X 10*3/uL (4.50-10.00)
[2022-01-02 15:15] LABS: African American GFR (CKD) 39.6 (60.0-200.0); Anion Gap 9.9 mmol/L (10.00-18.00); BUN/Creat Ratio 18.47 Ratio (12.00-20.00); Blood Urea Nitrogen 27.7 mg/dL (9.0-27.0); Calcium 9.2 mg/dL (8.7-10.3); Carbon Dioxide 23.1 mmol/L (20.0-27.5); Non-African American GFR(CKD) 34.2 (60.0-200.0); Potassium 4.6 mmol/L (3.5-5.5)
[2022-01-02 20:33] LABS: % Iron Saturation 15.35 (12.00-45.00)
[2022-01-02 21:34] LABS: Appearance,Urine Clear (Clear); Bilirubin,Urine Negative (Negative); Blood,Urine Negative (Negative); Color,Urine Yellow (Yellow); Ketones,Urine Negative (Negative); Nitrite,Urine Negative (Negative); PH, Urine 5.5 (5.0-8.0); Specific Gravity,Urine 1.006 (1.001-1.030); Urobilinogen,Urine 0.2 (0.2,1.0)
== END | disposition home or self-care (01) ==
LOC: LABWHC1 09:02
PROVIDERS: ATTEND Nurse Practitioner Family
DX: D64.9 Anemia, unspecified (principal); E61.1 Iron deficiency; N18.32 Chronic kidney disease, stage 3b; N39.0 Urinary tract infection, site not specified; R80.9 Proteinuria, unspecified
CPT/HCPCS: 36415; 80048; 81003; 82570; 82728; 83540; 83550; 84156; 85025

== ENCOUNTER 2022-01-14 11:30 | Day surgery (SDC) | payer MEDICARE, BC ==
[2022-01-12 15:18] VITALS: BMI 24.2
[~2022-01-14 11:30] MED LIST changes: +DEXAMETHASONE SOD PHOSPHATE 4 MG/ML 1 ML VIAL IV ONE; +HYDROmorphone 0.5 MG/0.5 ML SYRINGE IVP PRN; -LACTATED RINGERS 1,000 ML IV SCH; +LIDOCAINE 1% (10MG/ML) FOR IV START INTRADERMA PRN; +Pre Op ABX Message 1 EACH MISC MISCELLANE ONE
[2022-01-14] MEDS: LACTATED RINGERS 1,000 ML IV SCH ×3 (11:52→15:03)
[2022-01-14 11:58] VITALS: RESP 18; TEMP 97.8
[2022-01-14] MEDS: ONDANSETRON 4 MG/2 ML VIAL IVP ONE ×2 (11:59→14:27)
[2022-01-14] MEDS ORDERED: MIDAZOLAM 2 MG/2 ML VIAL ONE (12:46)
[2022-01-14] MEDS ORDERED: fentaNYL (PF) 50 MCG/ML 2 ML AMP ONE (12:46)
[2022-01-14] MEDS ORDERED: LIDOCAINE 2% INJ 20 MG/ML (2 ML VIAL) ONE (12:46)
[2022-01-14] MEDS ORDERED: KETAMINE 10 MG/ML 20 ML VIAL ONE (12:46)
[2022-01-14] MEDS ORDERED: PROPOFOL 10 MG/ML 20 ML VIAL IV ONE (12:46)
[2022-01-14] MEDS ORDERED: BUPIVACAINE (PF) 0.25% 30 ML VIAL SQ ONE (13:05)
--- NOTE | 2022-01-14 13:51 | P.OP ---
Date of Procedure: 01/14/22 Preoperative Diagnosis: Soft tissue mass below the first metatarsal phalangeal joint left foot Postoperative Diagnosis: Same diagnosis pending path report Procedure(s) Performed: Excision of soft tissue mass below the first metatarsal phalangeal joint left foot Surgeon: Dallas Stephens Description of Procedure: On the date of surgery the patient was taken to the operating room in good condition placed on the operating table in a supine position where an IV was started and adequate IV anesthetic agents were utilized. Anesthesia was then further supplemented with approximately 15 mL of 0.25% plain Marcaine given in a Warren type block to the first ray complex of the patient's left foot. The patient's left foot was then prepped and draped in the usual aseptic manner. Over heavy web roll padding an ankle tourniquet was placed above the malleoli of the patient's left ankle utilizing an Esmarch bandage the left foot and ankle were elevated and exsanguinated of blood and after approximately 1 minutes. A time the ankle tourniquet was inflated to approximately 250 mmHg This point in time attention was directed to the plantar medial side of the first metatarsal phalangeal joint where a 5 cm linear incision was made vision was deepened via sharp dissection down through the level of subcutaneous tissue layers all neurovascular structures encountered were identified isolated and were retracted and any bleeding vessels were clamped electrocauterized dissection was then carried deep across the plantar aspect of the first metatarsal phalangeal joint a white Rosaura mass was identified clamped isolated and excised in total from the surgical site the surgical site was then inspected for any remaining portions of the mass and none were seen. All neurovascular structures were clamped electrocauterized. Subcutaneous tissue was then coaptated and maintained utilizing 3-0 Vicryl simple interrupted suture and the skin was closed utilizing 4-0 nylon simple interrupted suture surgical site was dressed with Adaptic Kerlix fluffs four-inch conformer and 4 inch Coban ankle tourniquet to the patient's left ankle was deflated adequate hemostatic return was seen in all digits of the left foot specifically the left hallux. The patient tolerated the surgery and anesthesia well was taken to the recovery room in good postoperative condition
[2022-01-14] MEDS ORDERED: ONDANSETRON 4 MG/2 ML VIAL ONE (14:23)
[2022-01-14 14:40] VITALS: BP 153/69; PULSE 60
--- NOTE | 2022-01-20 08:28 | CDI ---
Documentation Clarification Form Date: 01/20/2022 08:23:38 AM From: Randa Terrazas Phone: Admit Date: 01/14/2022 11:30:00 AM Patient Name: Perla Rosen Visit Number: [id number] Discharge Date: Payor: MEDICARE Dear Dr. Stephens, Could you please document the size of the soft tissue mass excised? Please respond below the line. Thank you The size of the lesion was 2.5 cm by 2.0 cm by 1.5 cm MTDD
== END 2022-01-14 15:09 | disposition home or self-care (01) ==
LOC: OR 11:30
PROVIDERS: ATTEND Podiatrist Foot & Ankle Surgery
DX: M79.9 Soft tissue disorder, unspecified (principal); I10 Essential (primary) hypertension; E07.9 Disorder of thyroid, unspecified; N28.9 Disorder of kidney and ureter, unspecified; K50.90 Crohn's disease, unspecified, without complications; Z79.899 Other long term (current) drug therapy; Z79.890 Hormone replacement therapy; Z91.041 Radiographic dye allergy status; Z98.890 Other specified postprocedural states; Z90.49 Acquired absence of other specified parts of digestive tract
CPT/HCPCS: 88305; 28039; J2250; J1100; J2405; J3010; J2704; J2001

== ENCOUNTER → 2022-04-04 | Outpatient (CLI) | payer MEDICARE, BC ==
[2022-04-04 11:41] LABS: Basophils # (A) 0.03 X 10*3/uL (0.00-0.10); Basophils % (A) 0.3 %; HCT 35.8 % (37.2-46.3); HGB 11.5 g/dL (12.0-15.0); Immature Grans, Automated 0.4 %; Lymphocytes % (A) 14.7 %; MCH 29.9 pg (27.0-32.0); MCHC 32.1 g/dL (32.0-37.0); Mean Platelet Volume 10.1 fL (9.5-12.2); Monocytes # (A) 0.81 X 10*3/uL (0.20-1.00); Monocytes % (A) 7.9 %; NRBC Per 100 WBC 0 /100 WBCS (0.0-0.0); Neutrophils # (A) 7.71 X 10*3/uL (1.80-7.70); Neutrophils % (A) 75.7 %; Platelet Count 371 X 10*3/uL (140-440); RBC 3.85 X 10*6/uL (4.10-5.20); RDW 13.2 % (11.5-14.5); WBC 10.19 X 10*3/uL (4.50-10.00)
[2022-04-04 11:51] LABS: % Iron Saturation 26.34 (12.00-45.00); African American GFR (CKD) 45.4 (60.0-200.0); Anion Gap 13.1 mmol/L (10.00-18.00); BUN/Creat Ratio 19.25 Ratio (12.00-20.00); Blood Urea Nitrogen 25.8 mg/dL (9.0-27.0); Calcium 9.4 mg/dL (8.7-10.3); Carbon Dioxide 23.3 mmol/L (20.0-27.5); Magnesium 2.2 mg/dL (1.5-2.4); Non-African American GFR(CKD) 39.2 (60.0-200.0); Phosphorus 3.7 mg/dL (2.4-5.1); Potassium 5.2 mmol/L (3.5-5.5); Uric Acid 6.1 mg/dL (2.9-7.7)
[2022-04-04 12:08] LABS: Appearance,Urine Cloudy (Clear); Bilirubin,Urine Negative (Negative); Blood,Urine Trace (Negative); Color,Urine Yellow (Yellow); Ketones,Urine Negative (Negative); Nitrite,Urine Negative (Negative); PH, Urine 5.5 (5.0-8.0); Urobilinogen,Urine 0.2 (0.2,1.0)
[2022-04-04 12:11] LABS: Albumin 4.1 g/dL (3.8-4.9)
[2022-04-04 12:44] LABS: Bacteria,Urine 3+ /HPF (None Seen); Urine Creatinine 70.4 mg/dL (28.0-217.0)
== END | disposition home or self-care (01) ==
LOC: LABWHC1 07:58
PROVIDERS: ATTEND Internal Medicine Nephrology
DX: E21.3 Hyperparathyroidism, unspecified (principal); N18.32 Chronic kidney disease, stage 3b; E55.9 Vitamin D deficiency, unspecified; M10.9 Gout, unspecified; N39.0 Urinary tract infection, site not specified; R80.9 Proteinuria, unspecified; D63.1 Anemia in chronic kidney disease
CPT/HCPCS: 36415; 80048; 81001; 82040; 82043; 82306; 82570; 82728; 83540; 83550; 83735; 83970; 84100; 84550; 85025

== ENCOUNTER → 2022-05-05 | Outpatient (CLI) | payer MEDICARE, BC ==
--- NOTE | 2022-05-06 08:12 | MM ---
Reason for Exam: Screening (asymptomatic). Last mammogram was performed 4 year(s) and 0 month(s) ago. Patient History: Menarche at age 11. First Full-Term at age 16. Left ovary removed at age 31. Right ovary removed at age 31. Hysterectomy at age 31. Postmenopausal. Other cancer. Patient used Estrogen for 15 years. Hormonal Contraceptives, starting at age 18 for 2 years. Risk Values: Akosua 5 year model risk: 1.3%. NCI Lifetime model risk: 3.1%. Prior Study Comparison: 09/04/2014 Bilateral Screening Mammogram, [facility]. 04/10/2016 Bilateral Screening Mammogram, [facility]. 04/21/2018 Bilateral Screening Mammogram, [facility]. Tissue Density: The breast tissue is heterogeneously dense. This may lower the sensitivity of mammography. Findings: Analyzed By CAD. There is no suspicious group of microcalcifications or new suspicious mass in either breast. Benign calcifications within both breasts. No significant change from prior exams. Overall Assessment: Benign, BI-RAD 2 Management: Screening Mammogram of both breasts in 1 year. A clinical breast exam by your physician is recommended on an annual basis and results should be correlated with mammographic findings. Electronically signed and approved by: Rashard Donato D.O.
--- NOTE | 2022-05-06 08:12 | MM ---
Reason for Exam: Screening (asymptomatic). Last mammogram was performed 4 year(s) and 0 month(s) ago. Patient History: Menarche at age 11. First Full-Term at age 16. Left ovary removed at age 31. Right ovary removed at age 31. Hysterectomy at age 31. Postmenopausal. Other cancer. Patient used Estrogen for 15 years. Hormonal Contraceptives, starting at age 18 for 2 years. Risk Values: Akosua 5 year model risk: 1.3%. NCI Lifetime model risk: 3.1%. Prior Study Comparison: 09/04/2014 Bilateral Screening Mammogram, [facility]. 04/10/2016 Bilateral Screening Mammogram, [facility]. 04/21/2018 Bilateral Screening Mammogram, [facility]. Tissue Density: The breast tissue is heterogeneously dense. This may lower the sensitivity of mammography. Findings: Analyzed By CAD. There is no suspicious group of microcalcifications or new suspicious mass in either breast. Benign calcifications within both breasts. No significant change from prior exams. Overall Assessment: Benign, BI-RAD 2 Management: Screening Mammogram of both breasts in 1 year. A clinical breast exam by your physician is recommended on an annual basis and results should be correlated with mammographic findings. Electronically signed and approved by: Rashard Donato D.O.
== END | disposition home or self-care (01) ==
LOC: RADMAMWWP 06:59
PROVIDERS: ATTEND Family Medicine
DX: Z12.31 Encounter for screening mammogram for malignant neoplasm of breast (principal); Z78.0 Asymptomatic menopausal state
CPT/HCPCS: 77063; 77067

== ENCOUNTER 2022-06-16 11:46 | Emergency (ER) | payer MEDICARE, BC ==
[2022-06-16 11:56] VITALS: RESP 16; TEMP 97.8
--- NOTE | 2022-06-16 12:34 | ED ---
General Adult HPI - General Chief complaint: Syncope Stated complaint: syncope Time Seen by Provider: 06/16/22 12:21 Source: patient Mode of arrival: wheelchair Limitations: no limitations - History of Present Illness Initial comments: This patient is a 71-year-old woman who presents with complaint that she is feeling fatigue, generalized weakness, and she passed out today. Patient states she was diagnosed with influenza A approximately one week ago. She had been seen by her primary physician who gave her a steroid injection and a Dosepak. She states that she finished that medicine but she hasn't been feeling much better. She states that yesterday she didn't really eat or drink much at all. Today she had gotten up and was walking to the bathroom. She notes that she was feeling funny and lightheaded. Her was walking her to the bathroom and noticed that she passed out and he lowered her to the ground. Patient denies any injury. She states that she was not having any chest pain, palpitations, dyspnea or diaphoresis. -: days(s) Severity scale (1-10): 0 Consistency: constant Improves with: none Worsens with: none Associated Symptoms: syncope Treatments Prior to Arrival: none - Related Data Home Medications Medication Instructions Recorded Confirmed Levothyroxine Sodium [Synthroid] 88 mcg PO DAILY 10/06/14 06/16/22 inFLIXimab [Remicade] 500 mg IVPB Q56D 02/23/19 06/16/22 Ergocalciferol (Vitamin D2) 1,250 mcg PO Q30D 04/22/21 06/16/22 [Drisdol (50,000 Iu)] amLODIPine [Norvasc] 5 mg PO BID 01/12/22 06/16/22 carvediloL [Coreg] 6.25 mg PO BID 06/16/22 06/16/22 Previous Rx's Medication Instructions Recorded Azithromycin [Zithromax] 0 mg PO DIRECTED #6 tab 06/16/22 Allergies Allergy/AdvReac Type Severity Reaction Status Date / Time No Known Allergies Allergy Verified 06/16/22 13:41 Review of Systems ROS Statement: Those systems with pertinent positive or pertinent negative responses have been documented in the HPI. ROS Other: All systems not noted in ROS Statement are negative. Constitutional: Denies: fever, chills, weakness Respiratory: Reports: cough. Denies: dyspnea Cardiovascular: Denies: chest pain, palpitations, edema Gastrointestinal: Denies: abdominal pain, nausea, vomiting, diarrhea, constipation, melena, hematochezia Genitourinary: Denies: dysuria, hematuria Musculoskeletal: Denies: back pain Skin: Denies: rash Neurological: Denies: headache, weakness, numbness Past Medical History Past Medical History: Cancer, Hypertension, Osteoarthritis (OA), Renal Disease, Skin Disorder, Thyroid Disorder Additional Past Medical History / Comment(s): HX Crohns, hx.left thyroid cancer- 2004, chronic kidney disease stage 3, eczema, History of Any Multi-Drug Resistant Organisms: C-DIFF Date of last positivie culture/infection: September 2016 MDRO Source:: Stool Past Surgical History: Adenoidectomy, Appendectomy, Bowel Resection, Hysterectomy, Orthopedic Surgery, Tonsillectomy Additional Past Surgical History / Comment(s): 2 COLON RESECTIONS, ISAAC CATARACTS REMOVED, left thyroidectomy, heel spur left foot, bunionectomy left foot Past Anesthesia/Blood Transfusion Reactions: Motion Sickness Past Psychological History: No Psychological Hx Reported Smoking Status: Never smoker - Past Family History Mother Family Medical History: Cancer Additional Family Medical History / Comment(s): leukemia General Exam Limitations: no limitations General appearance: alert, in no apparent distress Head exam: Present: atraumatic, normocephalic Eye exam: Present: normal appearance ENT exam: Present: mucous membranes dry Neck exam: Present: normal inspection Respiratory exam: Present: normal lung sounds bilaterally. Absent: respiratory distress, wheezes, rales, rhonchi, stridor Cardiovascular Exam: Present: regular rate, normal rhythm, normal heart sounds. Absent: systolic murmur, diastolic murmur, rubs, gallop GI/Abdominal exam: Present: soft. Absent: distended, tenderness, guarding, rebound, rigid, mass Extremities exam: Present: normal inspection, normal capillary refill. Absent: pedal edema, calf tenderness Back exam: Present: normal inspection. Absent: CVA tenderness (R), CVA tenderness (L) Neurological exam: Present: alert, oriented X3, CN II-XII intact. Absent: motor sensory deficit Skin exam: Present: warm, dry, intact, normal color. Absent: rash Course Vital Signs 06/16/22 06/16/22 11:53 16:07 Temperature 97.8 F Pulse Rate 64 66 Respiratory 16 16 Rate Blood Pressure 96/58 120/67 O2 Sat by Pulse 93 L Oximetry EKG Findings - EKG Results: EKG: interpreted by SOFIA, sinus rhythm, normal axis, normal QRS EKG shows: bradycardia (Rate 59 bpm) Medical Decision Making - Medical Decision Making This patient is 71-year-old woman here with generalized weakness and fatigue, cough, and syncopal episode. On reevaluation after IV fluid, the patient is feeling better. We discussed the findings and I was going to have the patient admitted but she stated she wanted to try day of antibiotics as outpatient. She does agree to return should there be no improvement or if she is worsening in any way. We discussed appropriate further care and follow-up. I did interpret the chest x-ray and there is possible lower lobe infiltrate. There is leukocytosis though probably related to recent steroid use. For these reason patient will be given course of antibiotics - Lab Data Result diagrams: 06/16/22 13:26 06/16/22 13:26 Lab Results 06/16/22 06/16/22 06/16/22 Range/Units 13:26 13:26 13:26 WBC 24.2 H (3.8-10.6) k/uL RBC 3.90 (3.80-5.40) m/uL Hgb 12.0 (11.4-16.0) gm/dL Hct 34.9 (34.0-46.0) % MCV 89.4 (80.0-100.0) fL MCH 30.7 (25.0-35.0) pg MCHC 34.3 (31.0-37.0) g/dL RDW 13.2 (11.5-15.5) % Plt Count 301 (150-450) k/uL MPV 8.3 Neutrophils % 88 % Lymphocytes % 4 % Monocytes % 6 % Eosinophils % 1 % Basophils % 0 % Neutrophils # 21.3 H (1.3-7.7) k/uL Lymphocytes # 1.0 (1.0-4.8) k/uL Monocytes # 1.4 H (0-1.0) k/uL Eosinophils # 0.1 (0-0.7) k/uL Basophils # 0.1 (0-0.2) k/uL PT 9.9 (9.0-12.0) sec INR 0.9 (<1.2) APTT 24.0 (22.0-30.0) sec Sodium 133 L (137-145) mmol/L Potassium 4.2 (3.5-5.1) mmol/L Chloride 100 (98-107) mmol/L Carbon Dioxide 24 (22-30) mmol/L Anion Gap 9 mmol/L BUN 27 H (7-17) mg/dL Creatinine 1.43 H (0.52-1.04) mg/dL Est GFR (CKD-EPI)AfAm 42 (>60 ml/min/1.73 sqM) Est GFR (CKD-EPI)NonAf 36 (>60 ml/min/1.73 sqM) Glucose 96 (74-99) mg/dL Plasma Lactic Acid Vishal (0.7-2.0) mmol/L Calcium 8.5 (8.4-10.2) mg/dL Magnesium 1.9 (1.6-2.3) mg/dL Total Bilirubin 1.0 (0.2-1.3) mg/dL AST 54 H (14-36) U/L ALT 56 H (4-34) U/L Alkaline Phosphatase 117 (38-126) U/L Troponin I (0.000-0.034) ng/mL Total Protein 6.8 (6.3-8.2) g/dL Albumin 3.7 (3.5-5.0) g/dL Urine Color Urine Appearance (Clear) Urine pH (5.0-8.0) Ur Specific [place] (1.001-1.035) Urine Protein (Negative) Urine Glucose (UA) (Negative) Urine Ketones (Negative) Urine Blood (Negative) Urine Nitrite (Negative) Urine Bilirubin (Negative) Urine Urobilinogen (<2.0) mg/dL Ur Leukocyte Esterase (Negative) 06/16/22 06/16/22 06/16/22 Range/Units 13:26 14:02 15:08 WBC (3.8-10.6) k/uL RBC (3.80-5.40) m/uL Hgb (11.4-16.0) gm/dL Hct (34.0-46.0) % MCV (80.0-100.0) fL MCH (25.0-35.0) pg MCHC (31.0-37.0) g/dL RDW (11.5-15.5) % Plt Count (150-450) k/uL MPV Neutrophils % % Lymphocytes % % Monocytes % % Eosinophils % % Basophils % % Neutrophils # (1.3-7.7) k/uL Lymphocytes # (1.0-4.8) k/uL Monocytes # (0-1.0) k/uL Eosinophils # (0-0.7) k/uL Basophils # (0-0.2) k/uL PT (9.0-12.0) sec INR (<1.2) APTT (22.0-30.0) sec Sodium (137-145) mmol/L Potassium (3.5-5.1) mmol/L Chloride (98-107) mmol/L Carbon Dioxide (22-30) mmol/L Anion Gap mmol/L BUN (7-17) mg/dL Creatinine (0.52-1.04) mg/dL Est GFR (CKD-EPI)AfAm (>60 ml/min/1.73 sqM) Est GFR (CKD-EPI)NonAf (>60 ml/min/1.73 sqM) Glucose (74-99) mg/dL Plasma Lactic Acid Vishal 0.8 (0.7-2.0) mmol/L Calcium (8.4-10.2) mg/dL Magnesium (1.6-2.3) mg/dL Total Bilirubin (0.2-1.3) mg/dL AST (14-36) U/L ALT (4-34) U/L Alkaline Phosphatase (38-126) U/L Troponin I <0.012 (0.000-0.034) ng/mL Total Protein (6.3-8.2) g/dL Albumin (3.5-5.0) g/dL Urine Color Light Yellow Urine Appearance Clear (Clear) Urine pH 5.5 (5.0-8.0) Ur Specific [place] 1.005 (1.001-1.035) Urine Protein Negative (Negative) Urine Glucose (UA) Negative (Negative) Urine Ketones Trace H (Negative) Urine Blood Negative (Negative) Urine Nitrite Negative (Negative) Urine Bilirubin Negative (Negative) Urine Urobilinogen <2.0 (<2.0) mg/dL Ur Leukocyte Esterase Negative (Negative) Disposition Clinical Impression: Dehydration, Leukocytosis Narrative: Possible pneumonia Disposition: HOME SELF-CARE Condition: Good Instructions (If sedation given, give patient instructions): Pneumonia (ED) Prescriptions: Azithromycin [Zithromax] 0 mg PO DIRECTED #6 tab Is patient prescribed a controlled substance at d/c from ED?: No Referrals: Aime Kaur DO [Primary Care Provider] - 1-2 days
[2022-06-16] MEDS ORDERED: SODIUM CHLORIDE 0.9% 1,000 ML IV STA (13:08)
[2022-06-16 13:40] LABS: Basophils # (A) 0.1 k/uL (0-0.2); Basophils % (A) 0 %; Eosinophils # (A) 0.1 k/uL (0-0.7); Eosinophils % (A) 1 %; HCT 34.9 % (34.0-46.0); Lymphocytes % (A) 4 %; MCH 30.7 pg (25.0-35.0); MCHC 34.3 g/dL (31.0-37.0); MCV 89.4 fL (80.0-100.0); Mean Platelet Volume 8.3; Monocytes # (A) 1.4 k/uL (0-1.0); Monocytes % (A) 6 %; Neutrophils # (A) 21.3 k/uL (1.3-7.7); Neutrophils % (A) 88 %; Platelet Count 301 k/uL (150-450); RDW 13.2 % (11.5-15.5); WBC 24.2 k/uL (3.8-10.6)
[2022-06-16 14:04] LABS: INR 0.9 (<1.2); Prothrombin Time 9.9 sec (9.0-12.0)
[2022-06-16 14:17] LABS: Albumin 3.7 g/dL (3.5-5.0); Calcium 8.5 mg/dL (8.4-10.2); Magnesium 1.9 mg/dL (1.6-2.3); Potassium 4.2 mmol/L (3.5-5.1); Total Protein 6.8 g/dL (6.3-8.2)
--- NOTE | 2022-06-16 14:25 | XR ---
EXAMINATION TYPE: XR chest 2V DATE OF EXAM: 06/16/2022 COMPARISON: Two-view chest x-ray of April 07, 2010 HISTORY: 71-year-old female with syncope. TECHNIQUE: Frontal and lateral views of the chest are obtained. FINDINGS: There is a hazy airspace opacity noted within the left lower lobe. There is no focal mass a ppreciated, pleural effusion, or pneumothorax seen. The cardiac silhouette size is within normal sanders its. The osseous structures are intact. IMPRESSION: Hazy opacity of the left lower lobe may be indicative of early infiltrative disease.
[2022-06-16 15:43] LABS: Appearance,Urine Clear (Clear); Bilirubin,Urine Negative (Negative); Blood,Urine Negative (Negative); Color,Urine Light Yellow; Glucose,Urine (UA) Negative (Negative); Ketones,Urine Trace (Negative); Leukocyte Esterase,Urine Negative (Negative); Nitrite,Urine Negative (Negative); PH, Urine 5.5 (5.0-8.0); Protein,Urine Negative (Negative); Specific Gravity,Urine 1.005 (1.001-1.035); Urobilinogen,Urine <2.0 mg/dL (<2.0)
[2022-06-16] MEDS ORDERED: AZITHROMYCIN 500 MG TAB PO STA (16:04)
[2022-06-16 16:38] VITALS: BP 120/67; PULSE 66
== END 2022-06-16 17:07 | disposition home or self-care (01) ==
LOC: EC 11:46
DX: E86.0 Dehydration (principal); D72.829 Elevated white blood cell count, unspecified; I12.9 Hypertensive chronic kidney disease with stage 1 through stage 4 chronic kidney disease, or unspecified chronic kidney disease; N18.30 Chronic kidney disease, stage 3 unspecified; E07.9 Disorder of thyroid, unspecified; M19.90 Unspecified osteoarthritis, unspecified site; Z79.890 Hormone replacement therapy; Z79.899 Other long term (current) drug therapy; Z90.49 Acquired absence of other specified parts of digestive tract
CPT/HCPCS: 36415; 93005; 80053; 83605; 83735; 84484; 85025; 85610; 85730; 81003; 71046; 99284; 96365; 96361; J0696

== ENCOUNTER → 2022-06-22 | Outpatient (CLI) | payer MEDICARE, BC ==
--- NOTE | 2022-06-22 12:09 | XR ---
EXAMINATION TYPE: XR chest 2V DATE OF EXAM: 06/22/2022 COMPARISON: NONE HISTORY: Shortness of breath TECHNIQUE: Frontal and lateral views of the chest are obtained. FINDINGS: Scattered senescent parenchymal changes noted. Hyperinflation compatible with COPD. No evidence for infiltrate. No evidence for atelectasis. Heart size is stable. Mediastinal structures are stable and grossly unremarkable. No evidence for hilar prominence. Degenerative changes dorsal spine. IMPRESSION: 1. No evidence for acute pulmonary disease.
== END | disposition home or self-care (01) ==
LOC: RADXRMAIN 11:20
PROVIDERS: ATTEND Nurse Practitioner Family
DX: J18.9 Pneumonia, unspecified organism (principal)
CPT/HCPCS: 71046

== ENCOUNTER → 2022-06-29 | Outpatient (CLI) | payer MEDICARE, BC ==
[2022-06-29 10:46] LABS: Basophils # (A) 0.05 X 10*3/uL (0.00-0.10); Basophils % (A) 0.6 %; Eosinophils # (A) 0.25 X 10*3/uL (0.04-0.35); HCT 32.1 % (37.2-46.3); HGB 9.9 g/dL (12.0-15.0); Immature Grans, Automated 0.4 %; Lymphocytes # (A) 1.35 X 10*3/uL (0.90-5.00); Lymphocytes % (A) 16.4 %; MCH 29.4 pg (27.0-32.0); MCHC 30.8 g/dL (32.0-37.0); MCV 95.3 fL (80.0-97.0); Mean Platelet Volume 9.2 fL (9.5-12.2); Monocytes # (A) 0.63 X 10*3/uL (0.20-1.00); Monocytes % (A) 7.7 %; NRBC Per 100 WBC 0 /100 WBCS (0.0-0.0); Neutrophils # (A) 5.91 X 10*3/uL (1.80-7.70); Neutrophils % (A) 71.9 %; Platelet Count 386 X 10*3/uL (140-440); RBC 3.37 X 10*6/uL (4.10-5.20); RDW 12.8 % (11.5-14.5); WBC 8.22 X 10*3/uL (4.50-10.00)
[2022-06-29 10:52] LABS: % Iron Saturation 22.89 (12.00-45.00); African American GFR (CKD) 43.9 (60.0-200.0); Anion Gap 10.1 mmol/L (10.00-18.00); BUN/Creat Ratio 13.99 Ratio (12.00-20.00); Blood Urea Nitrogen 19.3 mg/dL (9.0-27.0); Calcium 8.8 mg/dL (8.7-10.3); Carbon Dioxide 23.9 mmol/L (20.0-27.5); Non-African American GFR(CKD) 37.8 (60.0-200.0); Potassium 4.4 mmol/L (3.5-5.5)
[2022-06-29 10:53] LABS: Magnesium 1.8 mg/dL (1.5-2.4)
[2022-06-29 11:04] LABS: Appearance,Urine Clear (Clear); Bilirubin,Urine Negative (Negative); Blood,Urine Negative (Negative); Color,Urine Yellow (Yellow); Ketones,Urine Negative (Negative); Nitrite,Urine Negative (Negative); PH, Urine 5.5 (5.0-8.0); Specific Gravity,Urine 1.008 (1.001-1.030); Urobilinogen,Urine 0.2 (0.2,1.0)
[2022-06-29 11:10] LABS: Bacteria,Urine None Seen /HPF (None Seen)
== END | disposition home or self-care (01) ==
LOC: LABWHC1 07:29
PROVIDERS: ATTEND Internal Medicine Nephrology
DX: N25.81 Secondary hyperparathyroidism of renal origin (principal); N18.32 Chronic kidney disease, stage 3b; E55.9 Vitamin D deficiency, unspecified; M10.9 Gout, unspecified; N39.0 Urinary tract infection, site not specified; D63.1 Anemia in chronic kidney disease
CPT/HCPCS: 36415; 80048; 81001; 82728; 83540; 83550; 83735; 83970; 84100; 84550; 85025

== ENCOUNTER → 2022-07-22 | Outpatient (CLI) | payer MEDICARE, BC ==
[2022-07-22 15:59] LABS: Basophils # (A) 0.03 X 10*3/uL (0.00-0.10); Basophils % (A) 0.3 %; Eosinophils # (A) 0.17 X 10*3/uL (0.04-0.35); Eosinophils % (A) 1.7 %; HCT 35.3 % (37.2-46.3); HGB 10.6 g/dL (12.0-15.0); Immature Grans, Automated 0.3 %; Lymphocytes # (A) 1.32 X 10*3/uL (0.90-5.00); Lymphocytes % (A) 13.5 %; MCH 29.3 pg (27.0-32.0); MCV 97.5 fL (80.0-97.0); Mean Platelet Volume 9.6 fL (9.5-12.2); Monocytes # (A) 0.89 X 10*3/uL (0.20-1.00); Monocytes % (A) 9.1 %; NRBC Per 100 WBC 0 /100 WBCS (0.0-0.0); Neutrophils # (A) 7.37 X 10*3/uL (1.80-7.70); Neutrophils % (A) 75.1 %; Platelet Count 386 X 10*3/uL (140-440); RBC 3.62 X 10*6/uL (4.10-5.20); RDW 13.2 % (11.5-14.5); WBC 9.81 X 10*3/uL (4.50-10.00)
== END | disposition home or self-care (01) ==
LOC: LABWHC1 07:05
PROVIDERS: ATTEND Nurse Practitioner Family
DX: N18.32 Chronic kidney disease, stage 3b (principal); D63.1 Anemia in chronic kidney disease
CPT/HCPCS: 36415; 85025

== ENCOUNTER → 2022-07-22 | Outpatient (CLI) | payer MEDICARE, BC ==
--- NOTE | 2022-07-22 16:37 | US ---
EXAMINATION TYPE: US thyroid st tissue head/neck DATE OF EXAM: 07/22/2022 COMPARISON: US CLINICAL HISTORY: R22.0 LOCALIZED SWELLING, MASS AND LUMP, HEAD. F/U GLAND SIZE: Right Lobe: 5.6 x 1.9 x 1.8 cm Overall Parenchyma: homogenous Left Lobe: 0.9 x 0.6 x 0.6 cm Overall Parenchyma: homogeneous Isthmus Thickness: 0.3 cm NODULES RIGHT: # of nodules measured on right: 0 LEFT: # of nodules measured on left: 0 ISTHMUS: # of nodules measured in the isthmus: 0 Bilateral neck scanned, no evidence of lymphadenopathy. Similar findings when compared to prior US, r esidual thyroid tissue left thyroid bed as visualized on prior. No significant residual tissue on the left. Right thyroid appears homogenous. IMPRESSION: 1. No suspicious nodules
== END | disposition home or self-care (01) ==
LOC: RADUSWWP 07:01
PROVIDERS: ATTEND Family Medicine
DX: R22.0 Localized swelling, mass and lump, head (principal)
CPT/HCPCS: 76536

== ENCOUNTER → 2022-08-18 | Outpatient (CLI) | payer MEDICARE, BC ==
--- NOTE | 2022-08-18 14:52 | NM ---
EXAMINATION TYPE: NM bone 3 phase DATE OF EXAM: 08/18/2022 COMPARISON: NONE CLINICAL INDICATION:Female, 71 years old with history of M86.172; Triple phase bone scintigraphy was performed following the injection of 21.6 mCi Tc 99m MDP. Immedia te images and 3.5 hours post injection images acquired. FINDINGS: Increased radiotracer uptake within the left foot on both flow, blood pool and delayed imaging. The a bnormal radiotracer uptake within the left foot is more focal and located in the area of the first me tacarpal phalangeal joint and within the lateral midfoot carpals. There is subtle more ill-defined as ymmetric uptake within the distal left tibia and other left mid foot and hindfoot osseous structures. IMPRESSION: Findings compatible with osteomyelitis of the first digit near the metacarpal phalangeal joint and in the mid carpals.
== END | disposition home or self-care (01) ==
LOC: RADNMMAIN 07:30
PROVIDERS: ATTEND Podiatrist Foot & Ankle Surgery
DX: M86.172 Other acute osteomyelitis, left ankle and foot (principal)
CPT/HCPCS: 78315; A9503

== ENCOUNTER → 2022-12-29 | Outpatient (CLI) | payer MEDICARE, BC ==
[2022-12-29 20:53] LABS: ALT 13 U/L (8-44); AST 21 U/L (13-35); Albumin 4.1 d/dL (3.8-4.9); Albumin/Globulin Ratio 1.28 Ratio (1.60-3.17); Alkaline Phosphatase 104 U/L (41-126); BUN/Creat Ratio 27.08 Ratio (12.00-20.00); Blood Urea Nitrogen 35.2 mg/dL (9.0-27.0); C Reactive Protein <0.30 mg/dL (0.00-0.80); Carbon Dioxide 21.7 mmol/L (21.6-31.8); Chloride 106 mmol/L (96-109); Globulin 3.2 d/dL (1.6-3.3); Glucose 80 mg/dL (70-110); Potassium 4.5 mmol/L (3.5-5.5); Sodium 141 mmol/L (135-145); Total Bilirubin 0.3 mg/dL (0.3-1.2); Total Protein 7.3 d/dL (6.2-8.2)
[2022-12-30 00:07] LABS: Basophils # (A) 0.05 X 10*3/uL (0.00-0.10); Basophils % (A) 0.5 %; Eosinophils # (A) 0.22 X 10*3/uL (0.04-0.35); Eosinophils % (A) 2.2 %; HCT 40.4 % (37.2-46.3); HGB 12.9 d/dL (12.0-15.0); Lymphocytes # (A) 2.35 X 10*3/uL (0.90-5.00); Lymphocytes % (A) 23.6 %; MCH 29.6 pg (27.0-32.0); MCHC 31.9 d/dL (32.0-37.0); MCV 92.7 FL (80.0-97.0); Mean Platelet Volume 10.5 FL (9.5-12.2); Monocytes # (A) 0.73 X 10*3/uL (0.20-1.00); Monocytes % (A) 7.3 %; NRBC Per 100 WBC 0 X 10*3/uL (0.00-0.01); Neutrophils % (A) 66.2 %; Platelet Count 343 X 10*3/uL (140-440); RBC 4.36 X 10*6/uL (4.10-5.20); RDW 13.4 % (11.5-14.5); WBC 9.97 X 10*3/uL (4.50-10.00)
[2022-12-30 01:04] LABS: Erythrocyte Sedimentation Rate 18 mm/Hr (0-30)
== END | disposition home or self-care (01) ==
LOC: LABWHC1 15:40
PROVIDERS: ATTEND Internal Medicine Infectious Disease
DX: M86.172 Other acute osteomyelitis, left ankle and foot (principal)
CPT/HCPCS: 36415; 80053; 85025; 85652; 86140

== ENCOUNTER 2023-01-01 10:59 | Day surgery (SDC) | payer MEDICARE, BC ==
[2023-01-01 11:28] VITALS: BP 170/73; PULSE 58; RESP 16; TEMP 97.4
[2023-01-01] MEDS ORDERED: LIDOCAINE 1% INJ 10MG/ML (5 ML VIAL-PF) SQ ONE (12:00)
--- NOTE | 2023-01-01 13:03 | IR ---
PICC LINE PLACEMENT: HISTORY: Infection requiring long-term antibiotic therapy PROCEDURE: Ultrasound and fluoroscopic guidance of PICC line placement. COMPLICATIONS: None ANESTHESIA: 1. 1% Lidocaine locally. FINDINGS/TECHNIQUE: The procedure was explained to the patient. The risks, complications, benefits and alternatives were discussed and any questions were answered. Informed consent was obtained. The patient was placed supine on the fluoroscopic table and prepped and draped in the usual sterile fash ion. Utilizing a 21 gauge needle and sonographic and fluoroscopic guidance, access in the right bas ilic vein was achieved and there is placement of a 0.018 guidewire. The vein is patent. A 4-F sheat h was placed over the guidewire. The guidewire and dilator were removed and a 4-F. PICC line was edmar dai through the sheath with the tip at the level of the SVC. The sheath was removed, the catheter wa s flushed and sutured into position. The patient was stable throughout the procedure and remained st able upon discharge from the Department of Radiology. The vein puncture was patent under ultrasound. A adams scale image was obtained to document patency of the vein punctured. All elements of the maximal barrier technique were utilized. FLUOROSCOPY TIME: DAP 0.1107Gy cm2 IMPRESSION: Successful PICC line placement under ultrasound and fluoroscopic guidance.
== END 2023-01-01 12:20 | disposition home or self-care (01) ==
LOC: CATHCVL 10:59
PROVIDERS: ATTEND Radiology Diagnostic Radiology
DX: Z45.2 Encounter for adjustment and management of vascular access device (principal)
CPT/HCPCS: 36573; C1751; C1894; C1769; J2001

== ENCOUNTER → 2023-01-28 | Outpatient (CLI) | payer MEDICARE, BC ==
[2023-01-28 15:33] LABS: Basophils # (A) 0.05 X 10*3/uL (0.00-0.10); Basophils % (A) 0.6 %; Eosinophils # (A) 0.21 X 10*3/uL (0.04-0.35); Eosinophils % (A) 2.5 %; HCT 37.1 % (37.2-46.3); HGB 11.8 d/dL (12.0-15.0); Lymphocytes # (A) 1.49 X 10*3/uL (0.90-5.00); Lymphocytes % (A) 17.9 %; MCH 29.9 pg (27.0-32.0); MCHC 31.8 d/dL (32.0-37.0); MCV 94.2 FL (80.0-97.0); Mean Platelet Volume 10.4 FL (9.5-12.2); Monocytes # (A) 0.77 X 10*3/uL (0.20-1.00); Monocytes % (A) 9.2 %; NRBC Per 100 WBC 0 X 10*3/uL (0.00-0.01); Neutrophils # (A) 5.79 X 10*3/uL (1.80-7.70); Neutrophils % (A) 69.6 %; Platelet Count 292 X 10*3/uL (140-440); RBC 3.94 X 10*6/uL (4.10-5.20); RDW 14.2 % (11.5-14.5); WBC 8.33 X 10*3/uL (4.50-10.00)
[2023-01-28 16:16] LABS: % Iron Saturation 15.67 (12.00-45.00); Albumin 4.2 d/dL (3.8-4.9); BUN/Creat Ratio 17.64 Ratio (12.00-20.00); Blood Urea Nitrogen 19.4 mg/dL (9.0-27.0); Calcium 9.5 mg/dL (8.7-10.3); Carbon Dioxide 24.9 mmol/L (21.6-31.8); Chloride 104 mmol/L (96-109); Glucose 78 mg/dL (70-110); Iron 55 UG/DL (50-170); Phosphorus 4.1 mg/dL (2.4-5.1); Potassium 4.8 mmol/L (3.5-5.5); Sodium 142 mmol/L (135-145); Total Iron Binding Capacity 351 UG/DL (228-460); Uric Acid 4.9 mg/dL (2.9-7.7)
[2023-01-28 17:45] LABS: Microalbumin Creatinine Ratio <23 mg/g Cr (0-30); Urine Creatinine 52.5 mg/dL (28.0-217.0)
[2023-01-28 23:16] LABS: Appearance,Urine Clear (Clear); Bilirubin,Urine Negative (Negative); Blood,Urine Negative (Negative); Color,Urine Yellow (Yellow); Ketones,Urine Negative (Negative); Nitrite,Urine Negative (Negative); PH, Urine 5.5; Specific Gravity,Urine 1.012 (1.001-1.030); Urobilinogen,Urine 0.2 E.U./DL
== END | disposition home or self-care (01) ==
LOC: LABWHC1 10:01
PROVIDERS: ATTEND Internal Medicine Nephrology
DX: E55.9 Vitamin D deficiency, unspecified (principal); N18.32 Chronic kidney disease, stage 3b; M10.9 Gout, unspecified; N39.0 Urinary tract infection, site not specified; D63.1 Anemia in chronic kidney disease
CPT/HCPCS: 36415; 80048; 81003; 82040; 82043; 82306; 82570; 82728; 83540; 83550; 83735; 83970; 84100; 84550; 85025

== ENCOUNTER → 2023-03-05 | Outpatient (CLI) | payer MEDICARE, BC ==
[2023-03-05 16:53] LABS: ALT 14 U/L (8-44); AST 19 U/L (13-35); Albumin 4.5 d/dL (3.8-4.9); Albumin/Globulin Ratio 1.73 Ratio (1.60-3.17); Alkaline Phosphatase 75 U/L (41-126); BUN/Creat Ratio 21.23 Ratio (12.00-20.00); Blood Urea Nitrogen 27.6 mg/dL (9.0-27.0); Calcium 9.4 mg/dL (8.7-10.3); Carbon Dioxide 21.9 mmol/L (21.6-31.8); Chloride 107 mmol/L (96-109); Globulin 2.6 d/dL (1.6-3.3); Glucose 82 mg/dL (70-110); Potassium 4.9 mmol/L (3.5-5.5); Sodium 140 mmol/L (135-145); Total Bilirubin 0.2 mg/dL (0.3-1.2); Total Protein 7.1 d/dL (6.2-8.2)
[2023-03-06 04:17] LABS: Basophils # (A) 0.03 X 10*3/uL (0.00-0.10); Basophils % (A) 0.3 %; Eosinophils % (A) 2.1 %; HCT 36.3 % (37.2-46.3); HGB 11.4 d/dL (12.0-15.0); Lymphocytes # (A) 1.78 X 10*3/uL (0.90-5.00); Lymphocytes % (A) 18.3 %; MCH 29.6 pg (27.0-32.0); MCHC 31.4 d/dL (32.0-37.0); MCV 94.3 FL (80.0-97.0); Mean Platelet Volume 10.3 FL (9.5-12.2); Monocytes # (A) 0.86 X 10*3/uL (0.20-1.00); Monocytes % (A) 8.9 %; NRBC Per 100 WBC 0 X 10*3/uL (0.00-0.01); Neutrophils # (A) 6.81 X 10*3/uL (1.80-7.70); Neutrophils % (A) 70.1 %; Platelet Count 307 X 10*3/uL (140-440); RBC 3.85 X 10*6/uL (4.10-5.20); RDW 13.5 % (11.5-14.5); WBC 9.71 X 10*3/uL (4.50-10.00)
== END | disposition home or self-care (01) ==
LOC: LABWHC1 12:18
PROVIDERS: ATTEND Internal Medicine Infectious Disease
DX: M86.172 Other acute osteomyelitis, left ankle and foot (principal)
CPT/HCPCS: 36415; 80053; 85025; 86140

== ENCOUNTER 2023-03-08 14:53 | Emergency (ER) | payer MEDICARE, BC ==
[2023-03-08 15:58] VITALS: PULSE 55; TEMP 97.8
[2023-03-08 17:10] LABS: Basophils % (A) 0 %; Eosinophils # (A) 0.3 k/uL (0-0.7); Eosinophils % (A) 2 %; HCT 35.3 % (34.0-46.0); HGB 11.9 gm/dL (11.4-16.0); Lymphocytes # (A) 1.7 k/uL (1.0-4.8); Lymphocytes % (A) 17 %; MCH 30.9 pg (25.0-35.0); MCHC 33.8 g/dL (31.0-37.0); MCV 91.3 fL (80.0-100.0); Mean Platelet Volume 7.7; Monocytes # (A) 0.6 k/uL (0-1.0); Monocytes % (A) 6 %; Neutrophils # (A) 7.3 k/uL (1.3-7.7); Neutrophils % (A) 73 %; Platelet Count 271 k/uL (150-450); RBC 3.86 m/uL (3.80-5.40); RDW 13.4 % (11.5-15.5)
[2023-03-08 17:23] LABS: ALT 15 U/L (4-34); AST 26 U/L (14-36); African American GFR (CKD) 49 (>60 ml/min/1.73 sqM); Albumin 4.3 g/dL (3.5-5.0); Alkaline Phosphatase 74 U/L (38-126); Anion Gap 10 mmol/L; Blood Urea Nitrogen 23 mg/dL (7-17); Calcium 9.3 mg/dL (8.4-10.2); Carbon Dioxide 22 mmol/L (22-30); Chloride 107 mmol/L (98-107); Glucose 81 mg/dL (74-99); Non-African American GFR(CKD) 43 (>60 ml/min/1.73 sqM); Potassium 4.2 mmol/L (3.5-5.1); Sodium 139 mmol/L (137-145); Total Bilirubin 0.5 mg/dL (0.2-1.3); Total Protein 7.6 g/dL (6.3-8.2)
[2023-03-08 17:31] LABS: INR 0.9 (<1.2)
[2023-03-08 17:32] LABS: NT-Pro-B-Type Natriuretic Pept 1110 pg/mL; Partial Thromboplastin Time 23.2 sec (22.0-30.0); Prothrombin Time 10.1 sec (9.0-12.0)
--- NOTE | 2023-03-08 18:12 | US ---
EXAMINATION TYPE: US venous doppler duplex LE DATE OF EXAM: 03/08/2023 4:54 PM COMPARISON: NONE CLINICAL INDICATION: Female, 72 years old with history of edema; edema x 1 week. No hx of DVT. Not on blood thinners SIDE PERFORMED: Bilateral TECHNIQUE: The lower extremity deep venous system is examined utilizing real time linear array sonog emily with graded compression, doppler sonography and color-flow sonography. VESSELS IMAGED: Common Femoral Vein Deep Femoral Vein Greater Saphenous Vein * Femoral Vein Popliteal Vein Small Saphenous Vein * Proximal Calf Veins (* superficial vessels) Right Leg: No evidence for DVT Left Leg: No evidence for DVT IMPRESSION: Grayscale, color doppler, spectral doppler imaging performed of the deep veins of the lo wer extremities. There is normal flow, compressibility, vascular waveforms.
[2023-03-08] MEDS ORDERED: FUROSEMIDE 20 MG TAB PO STA (18:28)
--- NOTE | 2023-03-08 18:37 | ED ---
General Adult HPI - General Chief complaint: Extremity Problem,Nontraumatic Stated complaint: swelling of legs Time Seen by Provider: 03/08/23 16:15 Source: patient, RN notes reviewed Mode of arrival: ambulatory Limitations: no limitations - History of Present Illness Initial comments: 72-year-old female presents to the emergency department chief complaint of leg swelling. She states that she has had left leg swelling for quite some time but noticed the right leg started to swell about one week ago. She saw her infectious disease doctor today who recommend she follow up with her primary care provider. She states that she went to her primary care provider's office who recommended she come in and be evaluated for DVT. She states that she feels well overall. Denies chest pain, shortness of breath, nausea, vomiting. Denies fever, chills. She states that she was recently on PO antibiotics for 3 weeks for her left leg which she states had osteomyelitis. She finished her course of antibiotics on Wednesday. - Related Data Home Medications Medication Instructions Recorded Confirmed Levothyroxine Sodium [Synthroid] 88 mcg PO DAILY 10/06/14 12/31/22 inFLIXimab [Remicade] 500 mg IVPB Q56D 02/23/19 12/31/22 Ergocalciferol (Vitamin D2) 1,250 mcg PO Q30D 04/22/21 12/31/22 [Drisdol (50,000 Iu)] amLODIPine [Norvasc] 5 mg PO BID 01/12/22 12/31/22 carvediloL [Coreg] 3.125 mg PO BID 06/16/22 12/31/22 Previous Rx's Medication Instructions Recorded Furosemide [Lasix] 20 mg PO DAILY #3 tab 03/08/23 Allergies Allergy/AdvReac Type Severity Reaction Status Date / Time morphine AdvReac Hallucinati Verified 01/01/23 11:11 ons sulfamethoxazole AdvReac Unknown Verified 01/01/23 11:13 [From Bactrim] trimethoprim [From Bactrim] AdvReac Unknown Verified 01/01/23 11:13 Review of Systems ROS Statement: Those systems with pertinent positive or pertinent negative responses have been documented in the HPI. ROS Other: All systems not noted in ROS Statement are negative. Past Medical History Past Medical History: Cancer, Hypertension, Osteoarthritis (OA), Pneumonia, Renal Disease, Skin Disorder, Thyroid Disorder Additional Past Medical History / Comment(s): HX Crohns, hx.left thyroid cancer- 2005, chronic kidney disease stage 3, eczema, lft foot infection under gt toe, COVID History of Any Multi-Drug Resistant Organisms: C-DIFF Date of last positivie culture/infection: September 2016 MDRO Source:: Stool Past Surgical History: Adenoidectomy, Appendectomy, Bowel Resection, Hyst erectomy, Orthopedic Surgery, Tonsillectomy Additional Past Surgical History / Comment(s): 2 COLON RESECTIONS, ISAAC CATARACTS REMOVED, left thyroidectomy, heel spur left foot, bunionectomy left foot 3 surgeis to lft foot x3 dr pinto and rashad for soft tissue mass, bx were neg to foot bones Past Anesthesia/Blood Transfusion Reactions: Motion Sickness Past Psychological History: Anxiety Smoking Status: Never smoker Past Alcohol Use History: None Reported Past Drug Use History: None Reported - Past Family History Mother Family Medical History: Cancer Additional Family Medical History / Comment(s): leukemia General Exam Limitations: no limitations General appearance: alert, in no apparent distress Head exam: Present: atraumatic, normocephalic, normal inspection Eye exam: Present: normal appearance, PERRL, EOMI. Absent: scleral icterus, conjunctival injection, periorbital swelling ENT exam: Present: normal exam, mucous membranes moist Neck exam: Present: normal inspection. Absent: tenderness, meningismus, lymphadenopathy Respiratory exam: Present: normal lung sounds bilaterally. Absent: respiratory distress, wheezes, rales, rhonchi, stridor Cardiovascular Exam: Present: regular rate, normal rhythm, normal heart sounds. Absent: systolic murmur, diastolic murmur, rubs, gallop, clicks GI/Abdominal exam: Present: soft, normal bowel sounds. Absent: distended, tenderness, guarding, rebound, rigid Extremities exam: Present: full ROM, tenderness, normal capillary refill, pedal edema, other (DP and PT pulses 2+ bilaterally, edema in the right lower extremity, no visible open wounds,) Back exam: Present: normal inspection Neurological exam: Present: alert, oriented X3, CN II-XII intact Psychiatric exam: Present: normal affect, normal mood Skin exam: Present: warm, dry, intact, normal color, other (Bilateral lower extremity edema worse on the right). Absent: rash Course Vital Signs 03/08/23 03/08/23 15:52 19:26 Temperature 97.8 F Pulse Rate 55 L 55 L Respiratory 20 16 Rate Blood Pressure 163/66 149/65 O2 Sat by Pulse 100 100 Oximetry Medical Decision Making - Medical Decision Making Was pt. sent in by a medical professional or institution (, [facility], [facility] [employer] [facility], urgent care, hospital, or fdc...) When possible be specific @ -No Did you speak to anyone other than the patient for history (EMS, parent, family, police, friend...)? What history was obtained from this source @ -No Did you review nursing and triage notes (agree or disagree)? Why? @ -I reviewed and agree with nursing and triage notes Were old charts reviewed (outside hosp., previous admission, EMS record, old EKG, old radiological studies, urgent care reports/EKG's, fdc records)? Report findings @ -No old charts were reviewed Differential Diagnosis (chest pain, altered mental status, abdominal pain women, abdominal pain men, vaginal bleeding, weakness, fever, dyspnea, syncope, headache, dizziness, GI bleed, back pain, seizure, CVA, palpatations, mental health, musculoskeletal)? @ -Differential Musculoskeletal Muscular strain, contusion, ligament sprain, fracture, arthritis, septic arthritis, bursitis, cellulitis, muscle spasm, nerve compression, DVT, arterial occlusion, herpes zoster, electrolyte abnormality, tumor.... This is not meant to be in all inclusive list EKG interpreted by me (3pts min.). @ -None X-rays interpreted by me (1pt min.). @ -Chest x-ray obtained and showed no signs of acute process CT interpreted by me (1pt min.). @ -None done U/S interpreted by me (1pt. min.). @ -bilateral lower extremity ultrasound shows no evidence for DVT What testing was considered but not performed or refused? (CT, X-rays, U/S, labs)? Why? @ -None What meds were considered but not given or refused? Why? @ -None Did you discuss the management of the patient with other professionals (professionals i.e. [facility] Solorz[facility], [facility], lab, RT, psych nurse, social service agency director, online facilitator, teacher, canine enforcement officer, cyanide case hardener)? Give summary @ -No Was smoking cessation discussed for >3mins.? @ -No Was critical care preformed (if so, how long)? @ -No Were there social determinants of health that impacted care today? How? (Homelessness, low income, unemployed, alcoholism, drug addiction, transportation, low edu. Level, literacy, decrease access to med. care, custodial, rehab)? @ -No Was there de-escalation of care discussed even if they declined (Discuss DNR or withdrawal of care, Hospice)? DNR status @ -No What co-morbidities impacted this encounter? (DM, HTN, Smoking, COPD, CAD, Cancer, CVA, ARF, Chemo, Hep., AIDS, mental health diagnosis, sleep apnea, m orbid obesity)? @ -None Was patient admitted / discharged? Hospital course, mention meds given and route, prescriptions, significant lab abnormalities, going to OR and other pertinent info. @ -Discharged. Patient presented emergency department chief complaint of bilateral leg swelling worse on the right. She states that she does the swell ing about 1 week ago and was advised to come in by her primary care provider. Ultrasounds were obtained which show no evidence of DVT. Patient declines any other symptoms at this time including chest pain, shortness of breath, fever. CBC within normal limits, CMP sodium sodium 139, potassium 4.2, creatinine 1.25 which is the patient's baseline, GFR 43 patient has known COPD stage III; BNP 1110. Chest x-ray obtained which showed no evidence of acute process. Patient will be treated with a small dose of Lasix as the patient has CKD. Prescription sent for 3 days worth of Lasix and advised to follow-up with her primary care provider for further management. Patient is understanding and agreeable with the plan. Patient stable at time of discharge. Case with my attending, Dr. Villafana. Undiagnosed new problem with uncertain prognosis? @ -No Drug Therapy requiring intensive monitoring for toxicity (Heparin, Nitro, Insulin, Cardizem)? @ -No Were any procedures done? @ -No Diagnosis/symptom? @ -Lower extremity edema Acute, or Chronic, or Acute on Chronic? @ -Acute Uncomplicated (without systemic symptoms) or Complicated (systemic symptoms)? @ -Uncomplicated Side effects of treatment? @ -No Exacerbation, Progression, or Severe Exacerbation? @ -No Poses a threat to life or bodily function? How? (Chest pain, USA, AR, pneumonia, PE, COPD, DKA, ARF, appy, cholecystitis, CVA, Diverticulitis, Homicidal, Suicidal, threat to staff... and all critical care pts) @ -No - Lab Data Result diagrams: 03/08/23 16:59 03/08/23 16:59 Lab Results 03/08/23 03/08/23 03/08/23 Range/Units 16:59 16:59 16:59 WBC 10.0 (3.8-10.6) k/uL RBC 3.86 (3.80-5.40) m/uL Hgb 11.9 (11.4-16.0) gm/dL Hct 35.3 (34.0-46.0) % MCV 91.3 (80.0-100.0) fL MCH 30.9 (25.0-35.0) pg MCHC 33.8 (31.0-37.0) g/dL RDW 13.4 (11.5-15.5) % Plt Count 271 (150-450) k/uL MPV 7.7 Neutrophils % 73 % Lymphocytes % 17 % Monocytes % 6 % Eosinophils % 2 % Basophils % 0 % Neutrophils # 7.3 (1.3-7.7) k/uL Lymphocytes # 1.7 (1.0-4.8) k/uL Monocytes # 0.6 (0-1.0) k/uL Eosinophils # 0.3 (0-0.7) k/uL Basophils # 0.0 (0-0.2) k/uL PT 10.1 (9.0-12.0) sec INR 0.9 (<1.2) APTT 23.2 (22.0-30.0) sec Sodium 139 (137-145) mmol/L Potassium 4.2 (3.5-5.1) mmol/L Chloride 107 (98-107) mmol/L Carbon Dioxide 22 (22-30) mmol/L Anion Gap 10 mmol/L BUN 23 H (7-17) mg/dL Creatinine 1.25 H (0.52-1.04) mg/dL Est GFR (CKD-EPI)AfAm 49 (>60 ml/min/1.73 sqM) Est GFR (CKD-EPI)NonAf 43 (>60 ml/min/1.73 sqM) Glucose 81 (74-99) mg/dL Calcium 9.3 (8.4-10.2) mg/dL Total Bilirubin 0.5 (0.2-1.3) mg/dL AST 26 (14-36) U/L ALT 15 (4-34) U/L Alkaline Phosphatase 74 (38-126) U/L NT-Pro-B Natriuret Pep 1110 pg/mL Total Protein 7.6 (6.3-8.2) g/dL Albumin 4.3 (3.5-5.0) g/dL Disposition Clinical Impression: Bilateral lower extremity edema Disposition: HOME SELF-CARE Condition: Stable Instructions (If sedation given, give patient instructions): Leg Edema (ED) Additional Instructions: Follow up with Dr. Kaur this week. Return to the emergency department for new or worsening symptoms. Prescriptions: Furosemide [Lasix] 20 mg PO DAILY #3 tab Is patient prescribed a controlled substance at d/c from ED?: No Referrals: Aime Kaur DO [Primary Care Provider] - 1-2 days
--- NOTE | 2023-03-08 19:05 | XR ---
EXAMINATION TYPE: XR chest 2V DATE OF EXAM: 03/08/2023 7:00 PM COMPARISON: Chest radiographs from 06/22/2022 TECHNIQUE: XR chest 2V Frontal and lateral views of the chest. CLINICAL INDICATION:Female, 72 years old with history of LE edema; FINDINGS: Lungs/Pleura: There is no evidence of pleural effusion, focal consolidation, or pneumothorax. Pulmonary vascularity: Unremarkable. Heart/mediastinum: Cardiomediastinal silhouette is unremarkable. Musculoskeletal: No acute osseous pathology. IMPRESSION: No acute cardiopulmonary disease/process.
[2023-03-08 19:27] VITALS: BP 149/65; RESP 16
== END 2023-03-08 19:32 | disposition home or self-care (01) ==
LOC: EC 14:53
DX: R60.0 Localized edema (principal); I12.9 Hypertensive chronic kidney disease with stage 1 through stage 4 chronic kidney disease, or unspecified chronic kidney disease; N18.30 Chronic kidney disease, stage 3 unspecified; E07.9 Disorder of thyroid, unspecified; Z88.1 Allergy status to other antibiotic agents; Z88.2 Allergy status to sulfonamides; Z88.5 Allergy status to narcotic agent; Z79.890 Hormone replacement therapy; Z79.899 Other long term (current) drug therapy; Z86.16 Personal history of COVID-19
CPT/HCPCS: 36415; 71046; 80053; 83880; 85025; 85610; 85730; 93970; 99284

== ENCOUNTER → 2023-03-16 | Outpatient (CLI) | payer MEDICARE, BC | END | disposition home or self-care (01) | LOC: LABWHC1 07:11 | PROVIDERS: ATTEND Nurse Practitioner Family | DX: K50.10 Crohn's disease of large intestine without complications (principal) | CPT/HCPCS: 36415; 85652 ==

== ENCOUNTER → 2023-03-29 | Outpatient (CLI) | payer MEDICARE, BC ==
[2023-03-29 17:38] LABS: Basophils # (A) 0.05 X 10*3/uL (0.00-0.10); Basophils % (A) 0.5 %; Eosinophils # (A) 0.16 X 10*3/uL (0.04-0.35); Eosinophils % (A) 1.5 %; HCT 37.4 % (37.2-46.3); HGB 11.7 d/dL (12.0-15.0); Lymphocytes # (A) 2.09 X 10*3/uL (0.90-5.00); Lymphocytes % (A) 19.2 %; MCH 29.3 pg (27.0-32.0); MCHC 31.3 d/dL (32.0-37.0); MCV 93.7 FL (80.0-97.0); Monocytes # (A) 0.75 X 10*3/uL (0.20-1.00); Monocytes % (A) 6.9 %; NRBC Per 100 WBC 0 X 10*3/uL (0.00-0.01); Neutrophils % (A) 71.4 %; Platelet Count 304 X 10*3/uL (140-440); RBC 3.99 X 10*6/uL (4.10-5.20); RDW 12.8 % (11.5-14.5)
[2023-03-29 18:08] LABS: Erythrocyte Sedimentation Rate 13 mm/Hr (0-30)
[2023-03-29 18:37] LABS: ALT 14 U/L (8-44); AST 23 U/L (13-35); Albumin 4.6 d/dL (3.8-4.9); Albumin/Globulin Ratio 1.64 Ratio (1.60-3.17); Alkaline Phosphatase 81 U/L (41-126); BUN/Creat Ratio 11.71 Ratio (12.00-20.00); Blood Urea Nitrogen 16.4 mg/dL (9.0-27.0); Calcium 9.6 mg/dL (8.7-10.3); Carbon Dioxide 23.3 mmol/L (21.6-31.8); Chloride 105 mmol/L (96-109); Globulin 2.8 d/dL (1.6-3.3); Glucose 84 mg/dL (70-110); Potassium 4.3 mmol/L (3.5-5.5); Sodium 141 mmol/L (135-145); Total Bilirubin 0.3 mg/dL (0.3-1.2); Total Protein 7.4 d/dL (6.2-8.2)
[2023-03-30 23:53] LABS: Cryptosporidium Antigen Negative (Negative)
== END | disposition home or self-care (01) ==
LOC: LABWHC1 11:25
PROVIDERS: ATTEND Internal Medicine Gastroenterology
DX: R19.7 Diarrhea, unspecified (principal)
CPT/HCPCS: 36415; 80053; 83630; 83993; 85025; 85652; 86140; 87045; 87046; 87324; 87328; 87329

== ENCOUNTER 2023-06-04 06:00 | Day surgery (SDC) | payer MEDICARE, BC ==
[~2023-06-04 06:00] MED LIST changes: -DEXAMETHASONE SOD PHOSPHATE 4 MG/ML 1 ML VIAL IV ONE; -HYDROmorphone 0.5 MG/0.5 ML SYRINGE IVP PRN; +LACTATED RINGERS 1,000 ML IV SCH; -Pre Op ABX Message 1 EACH MISC MISCELLANE ONE
[2023-06-04 06:57] VITALS: TEMP 97.8
[2023-06-04] MEDS ORDERED: PROPOFOL 10 MG/ML 20 ML VIAL IV ONE (07:00)
--- NOTE | 2023-06-04 07:26 | P.PCN ---
Date of Procedure: 06/04/23 Procedure(s) Performed: BRIEF HISTORY: Patient is a 68-year-old pleasant white female scheduled for an elective colonoscopy as a part of surveillance of form Crohn's colitis diagnosed in 1999' she is been maintained on Remicade infusions since 2018. Her last colonoscopy 2 years ago revealed a tight sigmoid stricture with no active Crohn's disease at the site of stricture. Patient has any symptomatic. However for the last few months she is been having severe diarrhea but has been on antibiotic infusions for ostium myelitis. She is scheduled for colonoscopy to [facility] further PROCEDURE PERFORMED: Colonoscopy up to the sigmoid colon. PREOPERATIVE DIAGNOSIS: History of Crohn's colitis. IV sedation per Anesthesia. PROCEDURE: After informed consent was obtained, the patient, was brought into the endoscopy unit. IV sedation was administered by Anesthesia under continuous monitoring. Digital rectal examination was normal. Initially the Olympus CF-160 flexible video colonoscope was then inserted in the rectum, gradually advanced into the sigmoid colon and there was a very tight stricture identified. The scope was removed and upper endoscopy was in an individual rectum and gradually advanced into the sigmoid: And at 25 cm from the anal was there was a tight stricture almost with a luminal diameter of about 5-6 mm noted. Despite multiple times I was unable to advance scope beyond the stricture. Hence the procedure was terminated. Mucosa in the sigmoid stricture appeared slightly erythematous but no active Crohn's disease noted. The rectum appeared normal. l. Retroflexion was performed in the rectum and no lesions were seen. The patient tolerated the procedure well. IMPRESSION: Tight sigmoid stricture at 25 cm from the anal verge with no active Crohn's disease Scope could not be advanced beyond the sigmoid straight RECOMMENDATIONS: Findings of this examination were discussed with the patient as well as a family. She was advised to continue Remicade infusions and she'll be seen in office in 2-3 weeks and will discuss further management as per surgery for surgical intervention per sigmoid stricture..
[2023-06-04 07:50] VITALS: BP 124/74; RESP 18
[2023-06-04 07:51] VITALS: PULSE 66
== END 2023-06-04 08:22 | disposition home or self-care (01) ==
LOC: ORWHC2ENDO 06:00
PROVIDERS: ATTEND Internal Medicine Gastroenterology
DX: K50.10 Crohn's disease of large intestine without complications (principal); K56.699 Other intestinal obstruction unspecified as to partial versus complete obstruction; I10 Essential (primary) hypertension; E03.9 Hypothyroidism, unspecified; F41.9 Anxiety disorder, unspecified; Z79.899 Other long term (current) drug therapy; Z88.2 Allergy status to sulfonamides; Z79.890 Hormone replacement therapy
CPT/HCPCS: 45330; J2704

== ENCOUNTER → 2023-07-20 | Day surgery (SDC) | payer MEDICARE, BC ==
[~2023-07-20] MED LIST changes: +GLUCAGON 1 MG/ML VIAL IM STA; -LACTATED RINGERS 1,000 ML IV SCH; -LIDOCAINE 1% (10MG/ML) FOR IV START INTRADERMA PRN
[2023-07-20 11:47] VITALS: BP 170/81; PULSE 54; RESP 16; TEMP 98.1
--- NOTE | 2023-07-22 09:42 | MR ---
EXAMINATION TYPE: MR Enterography DATE OF EXAM: 07/20/2023 12:54 PM COMPARISON: 10/13/2017 CLINICAL INDICATION: Female 72 years old with a history of K50.10 CROHN'S DISEASE OF LARGE INTESTINE WITHOUT. Crohn's disease. TECHNIQUE: Standard multiplanar, multisequence imaging of the abdomen is performed without and with I V contrast, patient is injected with 1125 mL intravenous Gadavist gadolinium contrast. Oral NeuLumEX was given as per enterography protocol. FINDINGS: LOWER CHEST: No significant findings. ABDOMEN Bowel: Prior area of longer segment of active Crohn's disease in 2018 has resolved there remains a mo re inferior area within the sigmoid colon of circumferential wall thickening up to 9 mm with a nondis tended bowel with mucosal hyperenhancement. There is upstream dilation of colon with stool from this region suggesting some degree of obstruction. No evidence for mucosal hyperenhancement, stricture or fistulous tract formation. Third portion duodenal diverticula suggested in near the pancreatic uncina te process. Peritoneum: No evidence of pneumoperitoneum, free fluid, or adenopathy. Liver: Unremarkable. Gallbladder and Bile ducts: Layering gallstones in the gallbladder lumen. Pancreas: Unremarkable. Spleen: Unremarkable. Adrenal glands: Unremarkable. Kidneys: Unremarkable. Bladder: Unremarkable. Reproductive: Unremarkable. Lymph Nodes: Vasculature: Unremarkable. No aortic aneurysm. Musculoskeletal: The osseous structures appear intact. Abdominal wall: Unremarkable. IMPRESSION: 1. Short segment of mucosal hyperenhancement with wall thickening within the sigmoid colon suggestiv e of active Crohn's disease. Upstream stool accumulating suggest some degree of partial dissection. 2. Cholelithiasis.
== END ==
LOC: RADMRIMAIN 10:43
PROVIDERS: ATTEND Internal Medicine Gastroenterology
DX: K50.90 Crohn's disease, unspecified, without complications (principal); K80.20 Calculus of gallbladder without cholecystitis without obstruction
CPT/HCPCS: 96372; 72197; 74183; J1610; A9585

== ENCOUNTER → 2023-09-11 | Outpatient (CLI) | payer MEDICARE, BC ==
[2023-09-11 13:23] LABS: Basophils # (A) 0.05 X 10*3/uL (0.00-0.10); Basophils % (A) 0.5 %; Eosinophils # (A) 0.21 X 10*3/uL (0.04-0.35); HCT 36.5 % (37.2-46.3); HGB 11.5 g/dL (12.0-15.0); Lymphocytes # (A) 1.76 X 10*3/uL (0.90-5.00); Lymphocytes % (A) 16.8 %; MCH 29.6 pg (27.0-32.0); MCHC 31.5 g/dL (32.0-37.0); MCV 94.1 FL (80.0-97.0); Mean Platelet Volume 9.9 FL (9.5-12.2); Monocytes # (A) 0.84 X 10*3/uL (0.20-1.00); NRBC Per 100 WBC 0 X 10*3/uL (0.00-0.01); Neutrophils # (A) 7.57 X 10*3/uL (1.80-7.70); Neutrophils % (A) 72.4 %; Platelet Count 313 X 10*3/uL (140-440); RBC 3.88 X 10*6/uL (4.10-5.20); RDW 13.1 % (11.5-14.5); WBC 10.46 X 10*3/uL (4.50-10.00)
[2023-09-11 14:15] LABS: Anion Gap 11.2 mmol/L (4.00-12.00); Carbon Dioxide 24.8 mmol/L (21.6-31.8); Potassium 4.7 mmol/L (3.5-5.5)
== END | disposition home or self-care (01) ==
LOC: LABWHC1 08:26
PROVIDERS: ATTEND Surgery
DX: Z01.812 Encounter for preprocedural laboratory examination (principal); K57.32 Diverticulitis of large intestine without perforation or abscess without bleeding
CPT/HCPCS: 36415; 80051; 85025; 86850; 86900; 86901; 93005

== ENCOUNTER 2023-09-20 05:49 | Inpatient (IN) | payer MEDICARE, BC ==
[2023-09-15 14:18] VITALS: BMI 24.0
[2023-09-20] MEDS: ACETAMINOPHEN TAB 500 MG TAB PO PRN (06:35)
[2023-09-20] MEDS: HEPARIN SODIUM,PORCINE 5,000 UNIT/ML 1 ML VIAL SQ PRN (06:44)
[2023-09-20] MEDS: LACTATED RINGERS 1,000 ML IV ONE ×2 (06:44→09:13)
[2023-09-20] MEDS ORDERED: ONDANSETRON 4 MG/2 ML VIAL ONE (06:46)
[2023-09-20] MEDS: ONDANSETRON 4 MG/2 ML VIAL IVP ONE (06:47)
[2023-09-20] MEDS: fentaNYL (PF) 50 MCG/ML 2 ML AMP IVP ONE (07:01)
[2023-09-20] MEDS: MIDAZOLAM 2 MG/2 ML VIAL IVP ONE (07:01)
[2023-09-20] MEDS ORDERED: diphenhydrAMINE 50 MG/ML 1 ML VIAL IVP PRN (07:19)
[2023-09-20] MEDS ORDERED: NALOXONE 0.4 MG/ML 1 ML VIAL IV PRN (07:19)
[2023-09-20] MEDS ORDERED: GLYCOPYRROLATE 0.2 MG/ML 2 ML VIAL ONE (07:25)
[2023-09-20] MEDS ORDERED: NEOSTIGMINE 1 MG/ML 10 ML VIAL ONE (07:25)
[2023-09-20] MEDS ORDERED: ROCURONIUM 10 MG/ML (5 ML VIAL) IV ONE (07:25)
[2023-09-20] MEDS ORDERED: SUCCINYLCHOLINE CHLORIDE 200 MG/10 ML VIAL IV ONE (07:25)
[2023-09-20] MEDS ORDERED: LIDOCAINE 1% INJ 10MG/ML (20 ML MDV) ONE (07:25)
[2023-09-20] MEDS ORDERED: MIDAZOLAM 2 MG/2 ML VIAL ONE (07:25)
[2023-09-20] MEDS ORDERED: ePHEDrine 50 MG/ML 1 ML VIAL ONE (07:25)
[2023-09-20] MEDS ORDERED: fentaNYL (PF) 50 MCG/ML 2 ML AMP ONE (07:25)
[2023-09-20] MEDS ORDERED: PROPOFOL 10 MG/ML 20 ML VIAL IV ONE (07:25)
--- NOTE | 2023-09-20 07:26 | P.ANPRN ---
Procedure Note - Anesthesia - Epidural/Spinal Epidural Continuous Time Out Performed: Yes Date of Procedure: 09/20/23 Procedure Start Time: 07:00 Procedure Stop Time: 07:07 Location of Patient: PreOp Indication: Acute Post-Operative Pain, Requested by Surgeon Sedation Type: Sedate with meaningful contact maintained Preparation: Sterile Dressing Position: Sitting Catheter: Indwelling Needle Guage: 18 Blood Aspirated: No Pain Paresthesia on Injection Noted: No Events: Uneventful and Well Tolerated
[2023-09-20] MEDS: metroNIDAZOLE-NS PMX 500 MG in SALINE 1 100ML.BAG IVPB PRN (08:00)
[2023-09-20] MEDS: ROPIVACAINE 250 MG, fentaNYL (PF) 625 MCG in SODIUM CHLORIDE 0.9% 188 ML EPIDURAL PRN (09:42)
[2023-09-20] MEDS ORDERED: BENZOCAINE/MENTHOL LOZENG 1 EACH LOZENGE MUCOUS MEM PRN (09:49)
[2023-09-20] MEDS: METOCLOPRAMIDE 5 MG/ML 2 ML VIAL IVP PRN (11:28)
[2023-09-20] MEDS: ONDANSETRON 4 MG/2 ML VIAL IVP PRN (14:19)
--- NOTE | 2023-09-20 15:18 | P.OP ---
Date of Procedure: 09/20/23 Preoperative Diagnosis: Crohn's stricture sigmoid colon Postoperative Diagnosis: Crohn stricture of sigmoid colon Incisional hernia Procedure(s) Performed: Repair of incisional hernia Sigmoid colectomy with low anterior section Anesthesia: ANA Surgeon: Christian Yeung Estimated Blood Loss (ml): 20 Pathology: other (Sigmoid colon) Condition: stable Disposition: PACU Description of Procedure: The patient's placed on the operative table in supine position. She received general endotracheal anesthesia. Her abdomen was prepped and draped usual sterile fashion. The patient placed in dorsal 5 position. The patient appears midline scar is. The scar was incised in the midline. Then using electrocautery the abdominal wall was divided. There was a small incisional hernia noted. The fascia was opened. And then approximately 20 minutes of operative time used to lyse adhesions. Once the adhesions were lysed. The sigmoid colon was visualized. It appeared to be a stricture of the sigmoid colon. The; was mobilized and then the colon had an opening made in it. Throu gh the enterotomy the anvil for the 29 mm EEA stapler was placed. And then using the KALYN stapler the colon was transected. The enterotomy is then closed with 3-0 GI silk suture. And then the anvil was driven through the staple line. Next the mesentery and; was divided with the Enseal device. The rectum was then transected with the contour stapler. Specimen pathology. Next the anus was appeared to be strictured. The anus was dilated with the anal dilators. Then the stapler was placed in the anus. The 29 mm EEA stapler was placed anus and the spike was returned to the anterior rectal wall. The intervals then connected to the stapler. The stapler then closed and fired. The stapler was then withdrawn. 2 intact tissue rings were withdrawn. Stapler. This point using a bowel clamp the bowel was occluded and then the rigid sigmoidoscope insufflated the rectum and sigmoid. There was no evidence of any extravasation of air under water test. This point the abdomen was irrigated. There is no bleeding seen. The fascia is closed loop #1 PDS suture. The hernia was repaired during fascial closure. The skin was closed isaak. Patient top she will. She was sent to recovery room in stable condition.
[2023-09-20] MEDS: D5-0.45% NACL WITH KCL 20MEQ/L 1,000 ML IV SCH ×2 (16:08→23:10)
[2023-09-20] MEDS: HEPARIN SODIUM,PORCINE 5,000 UNIT/ML 1 ML VIAL SQ SCH (16:08)
[2023-09-20 20:43] LABS: Basophils % (A) 0 %; Eosinophils % (A) 0 %; HCT 32.2 % (34.0-46.0); HGB 9.9 gm/dL (11.4-16.0); Hypochromasia Slight; Lymphocytes # (A) 0.8 k/uL (1.0-4.8); Lymphocytes % (A) 5 %; MCH 30.3 pg (25.0-35.0); MCHC 30.8 g/dL (31.0-37.0); MCV 98.3 fL (80.0-100.0); Mean Platelet Volume 7.8; Monocytes # (A) 0.7 k/uL (0-1.0); Monocytes % (A) 4 %; Neutrophils # (A) 15.3 k/uL (1.3-7.7); Neutrophils % (A) 91 %; Platelet Count 204 k/uL (150-450); RBC 3.27 m/uL (3.80-5.40); RDW 12.6 % (11.5-15.5); WBC 16.9 k/uL (3.8-10.6)
[2023-09-20 20:51] LABS: African American GFR (CKD) 69 (>60 ml/min/1.73 sqM); Anion Gap 2 mmol/L; Blood Urea Nitrogen 17 mg/dL (7-17); Calcium 7.1 mg/dL (8.4-10.2); Carbon Dioxide 22 mmol/L (22-30); Chloride 104 mmol/L (98-107); Non-African American GFR(CKD) 60 (>60 ml/min/1.73 sqM); Sodium 128 mmol/L (137-145)
[2023-09-20 21:10] LABS: Glucose 599 mg/dL (74-99); Potassium 6.3 mmol/L (3.5-5.1)
[2023-09-20] MEDS ORDERED: DEXTROSE 50% SYRINGE 50 ML IVP PRN ×2 (21:21)
[2023-09-20 21:32] LABS: Glucose,Whole Blood 154 mg/dL (70-110)
[2023-09-20] MEDS: INSULIN ASPART (NovoLOG) 100 UNIT/ML VIAL SQ ONE (23:28)
[2023-09-20] MEDS: SODIUM CHLORIDE 0.9% 1,000 ML IV SCH (23:28)
[2023-09-21] MEDS ORDERED: INSULIN ASPART (NovoLOG) 100 UNIT/ML VIAL SQ SCH (07:30)
--- NOTE | 2023-09-21 08:43 | P.PN ---
Progress Note - Text Progress Note Date: 09/21/23 (263) Anesthesia Postop day 1 Status post low anterior resection with epidural day 2 Patient seen and examined. Doing well without complaint. VAS 9 out of 10vestibule. Positive pruritus. No nausea or vomiting. Ropivacaine 0.1% with Dilaudid 20 mcg/mL at 9 cc an hour. Objective: Vital signs reviewed Lungs: Good chest excursion Abdomen: Appears nondistended Other: Epidural Site Intact without induration. Dressing intact Neuro: No apparent motor block. Sensory within normal limits. Assessment: Status post low anterior resection postop day 1 Plan: Continue current care with your medical management. Anticipate reevaluation tomorrow.
[2023-09-21] MEDS: LEVOTHYROXINE 88 MCG TAB PO SCH (09:45)
[2023-09-21] MEDS: PANTOPRAZOLE 40 MG/10 ML VIAL IVP SCH (09:46)
[2023-09-21] MEDS: carvediloL 6.25 MG TAB PO SCH (09:46)
[2023-09-21] MEDS: amLODIPine 5 MG TAB PO SCH (09:46)
[2023-09-21] MEDS: ACETAMINOPHEN IV (For NPO) 1,000 MG in EMPTY BAG 1 BAG IVPB PRN (09:47)
--- NOTE | 2023-09-21 12:27 | P.PN ---
Subjective Progress Note Date: 09/21/23 CHIEF COMPLAINT: Crohn's stricture of sigmoid colon HISTORY OF PRESENT ILLNESS: Patient is postop day #1 status post repair of incisional hernia and sigmoid colectomy with low anterior resection for Crohn's stricture of sigmoid colon. Patient does complain of abdominal pain. Epidural was adjusted this morning for an abdominal pain. She did have nausea earlier. Medicine service has also added IV Tylenol for pain. Patient denies any vomiting. Denies any bowel activity. Afebrile. No repeat labs PHYSICAL EXAM: VITAL SIGNS: Reviewed. GENERAL: Well-developed in no acute distress. HEENT: No sclera icterus. Extraocular movements grossly intact. Moist buccal mucosa. Head is atraumatic, normocephalic. ABDOMEN: Soft. Nondistended. Mildly tender at incision site. Prevana wound vac intact NEUROLOGIC: Alert and oriented. Cranial nerves II through XII grossly intact. ASSESSMENT: Crohn stricture of sigmoid colon Incisional hernia PLAN: -Continue epidural for pain management -Continue Chapman catheter -Protonix added for GI prophylaxis and nausea -Encourage patient to ambulate -Encourage patient to use incentive spirometer -Continue clear liquid diet -Continue IV fluids Physician Meat Wrapper note has been reviewed by physician. Signing provider agrees with the documented findings, assessment, and plan of care. Objective - Vital Signs Vital signs: Vital Signs Temp 98.7 F 09/21/23 07:26 Pulse 68 09/21/23 07:26 Resp 16 09/21/23 07:26 BP 139/65 09/21/23 07:26 Pulse Ox 97 09/21/23 07:26 FiO2 Intake & Output 09/20/23 09/21/23 09/21/23 18:59 06:59 18:59 Intake Total 750 240 Output Total 100 550 Balance 650 -310 Intake: IV 750 Oral 240 Output: Urine 50 550 Estimated Blood Loss 50 Other: Voiding Method Indwelling Catheter - Labs CBC & Chem 7: 09/20/23 20:23 09/20/23 22:28 Labs: Abnormal Lab Results - Last 24 Hours (Table) 09/20/23 09/20/23 09/20/23 Range/Units 20:23 20:23 21:30 WBC 16.9 H (3.8-10.6) k/uL RBC 3.27 L (3.80-5.40) m/uL Hgb 9.9 L (11.4-16.0) gm/dL Hct 32.2 L (34.0-46.0) % MCHC 30.8 L (31.0-37.0) g/dL Neutrophils # 15.3 H (1.3-7.7) k/uL Lymphocytes # 0.8 L (1.0-4.8) k/uL Sodium 128 L (137-145) mmol/L Potassium 6.3 H* (3.5-5.1) mmol/L Glucose 599 H* (74-99) mg/dL POC Glucose (mg/dL) 154 H (70-110) mg/dL Calcium 7.1 L (8.4-10.2) mg/dL
--- NOTE | 2023-09-21 18:32 | P.CONS ---
History of Present Illness - Reason for Consult Consult date: 09/28/23 Medical management hypertension Requesting physician: Christian Yeung - Chief Complaint Crohn's disease-sigmoid colon stricture - History of Present Illness This is a 72-year-old female admitted with Crohn's disease, sigmoid colon stricture, status post repair of incisional hernia repair, sigmoid colectomy with low anterior resection, postop day #1. Tolerated procedure well. Positive abdominal pain, epidural dose recently increased this morning. Currently denies nausea or vomiting. Denies flatus or bowel movement. Afebrile. During the night, had false elevated readings of potassium 6.3 and glucose 599-Labs repeated with potassium of 4.1 and glucose of 154. Hemoglobin A1c 5.5. Vital signs stable, maintaining O2 sats in the high 90s on 2 L nasal cannula. Denies chest pain, palpitations or increased shortness of breath. Incentive spirometer at bedside, reinstructed on use/rationale. Review of Systems ROS Statement: Those systems with pertinent positive or pertinent negative responses have been documented in the HPI. ROS Other: All systems not noted in ROS Statement are negative. Past Medical History Past Medical History: Cancer, Hypertension, Osteoarthritis (OA), Pneumonia, Renal Disease, Skin Disorder, Thyroid Disorder Additional Past Medical History / Comment(s): Crohns. Hx left thyroid cancer-200 5 with left thyroidectomy. Chronic Kidney Disease, Stage 3. Eczema. Some hearing loss. Hx Covid. History of Any Multi-Drug Resistant Organisms: C-DIFF Year Discovered:: September 2016 MDRO Source:: Stool Past Surgical History: Adenoidectomy, Appendectomy, Bowel Resection, Hysterectomy, Orthopedic Surgery, Tonsillectomy Additional Past Surgical History / Comment(s): Bowel resection X2, bilateral cataracts removed, left thyroidectomy, left heel spur surgery, left bunionectomy, left foot surgery X3, left foot bone biopsies - negative. Past Anesthesia/Blood Transfusion Reactions: No Reported Reaction, Motion Sickness Past Psychological History: Anxiety Smoking Status: Never smoker Past Alcohol Use History: None Reported Past Drug Use History: None Reported - Past Family History Mother Family Medical History: Cancer Additional Family Medical History / Comment(s): Leukemia. Medications and Allergies Home Medications Medication Instructions Recorded Confirmed Type Levothyroxine Sodium [Synthroid] 88 mcg PO QAM 10/06/14 09/20/23 History inFLIXimab [Remicade] 500 mg IVPB Q56D 02/23/19 09/20/23 History Ergocalciferol (Vitamin D2) 1,250 mcg PO Q30D 04/22/21 09/20/23 History [Drisdol (50,000 Iu)] amLODIPine [Norvasc] 5 mg PO QAM 01/12/22 09/20/23 History carvediloL [Coreg] 6.25 mg PO BID 06/16/22 09/20/23 History Allergies Allergy/AdvReac Type Severity Reaction Status Date / Time morphine AdvReac Hallucinati Verified 09/20/23 06:21 ons sulfamethoxazole AdvReac Unknown Verified 09/20/23 06:21 [From Bactrim] trimethoprim [From Bactrim] AdvReac Unknown Verified 09/20/23 06:21 Physical Exam Vitals: Vital Signs Temp Pulse Pulse Resp BP Pulse Ox 09/21/23 12:47 98.2 F 65 17 131/70 97 09/21/23 08:45 62 68 16 09/21/23 07:26 98.7 F 68 16 139/65 97 09/21/23 01:10 98.4 F 72 17 137/56 98 09/20/23 18:57 97.9 F 72 16 137/55 98 09/20/23 15:36 100 137/91 97 09/20/23 15:30 71 17 133/87 98 Intake and Output 09/20/23 09/21/23 09/21/23 22:59 06:59 14:59 Intake Total 240 29 Output Total 550 1000 Balance 240 550 971 Intake: Intake, IV Titration 29 Amount Ropivacaine 250 mg 29 fentaNYL (PF) 625 mcg In Sodium Chloride 0.9% 188 ml @ Per Protocol EPIDURAL .Q0M PRN Rx#: [id number] Oral 240 Output: Urine 550 1000 Other: Voiding Method Indwelling Catheter Indwelling Catheter PHYSICAL EXAM: VITAL SIGNS: [As above] GENERAL: Pleasant, alert and oriented x 3 ,sitting up in bed, no acute distress,MMM. HEENT: Normocephalic, conjunctivae normal. eyes normal. NECK: Supple, no JVD. CARDIOVASCULAR: S1, S2 regular. No murmur RESPIRATION: Unlabored, equal air entry, breath sounds diminished in the bases. No rhonchi or crackles. No bronchial breathing. ABDOMEN: Soft, status post surgery, tender, prevana wound VAC present LEGS: No edema. no swelling NERVOUS SYSTEM: Cranial N 2-12 grossly normal. No focal deficits. Strength and sensation grossly intact.. Skin: Warm and dry, no rash Results CBC & Chem 7: 09/20/23 20:23 09/20/23 22:28 Labs: Abnormal Lab Results - Last 24 Hours (Table) 09/20/23 09/20/23 09/20/23 Range/Units 20:23 20:23 21:30 WBC 16.9 H (3.8-10.6) k/uL RBC 3.27 L (3.80-5.40) m/uL Hgb 9.9 L (11.4-16.0) gm/dL Hct 32.2 L (34.0-46.0) % MCHC 30.8 L (31.0-37.0) g/dL Neutrophils # 15.3 H (1.3-7.7) k/uL Lymphocytes # 0.8 L (1.0-4.8) k/uL Sodium 128 L (137-145) mmol/L Potassium 6.3 H* (3.5-5.1) mmol/L Glucose 599 H* (74-99) mg/dL POC Glucose (mg/dL) 154 H (70-110) mg/dL Calcium 7.1 L (8.4-10.2) mg/dL Assessment and Plan Assessment: Crohn stricture of sigmoid colon, status post repair of incisional hernia and sigmoid colectomy with low anterior resection, pathology pending Postoperative atelectasis, expected outcome Plan: Continue on current medication regimen ,monitoring and symptomatic treatment. Pain management, DVT prophylaxis as per primary. IV Tylenol added to pain med regimen. PPI in place for GI prophylaxis. aggressive pulmonary toileting with incentive spirometer reinforced. Diet advancement as per general surgery. Increase ambulation as tolerated. Repeat labs ordered for a.m. Home meds have been resumed accordingly. thank you for the consult. The impression and plan of care has been dictated as directed. : I performed a history and examination of this patient, discussed the same with the dictator. I agree with the dictator's note ,documented as a scribe. Any additional findings or plans will be noted.
[2023-09-22 08:29] LABS: Basophils # (A) 0.02 X 10*3/uL (0.00-0.10); Basophils % (A) 0.2 %; Eosinophils # (A) 0.21 X 10*3/uL (0.04-0.35); Eosinophils % (A) 1.8 %; HGB 10.1 g/dL (12.0-15.0); Lymphocytes # (A) 1.65 X 10*3/uL (0.90-5.00); Lymphocytes % (A) 14.1 %; MCH 30.3 pg (27.0-32.0); MCHC 31.6 g/dL (32.0-37.0); MCV 96.1 FL (80.0-97.0); Monocytes # (A) 1.03 X 10*3/uL (0.20-1.00); Monocytes % (A) 8.8 %; NRBC Per 100 WBC 0 X 10*3/uL (0.00-0.01); Neutrophils % (A) 74.8 %; Platelet Count 210 X 10*3/uL (140-440); RBC 3.33 X 10*6/uL (4.10-5.20); RDW 13.2 % (11.5-14.5); WBC 11.74 X 10*3/uL (4.50-10.00)
[2023-09-22 08:39] LABS: BUN/Creat Ratio 7.33 Ratio (12.00-20.00); Blood Urea Nitrogen 8.8 mg/dL (9.0-27.0); Calcium 8.6 mg/dL (8.7-10.3); Carbon Dioxide 26.1 mmol/L (21.6-31.8); Chloride 102 mmol/L (96-109); Glucose 102 mg/dL (70-110); Potassium 4.8 mmol/L (3.5-5.5); Sodium 134 mmol/L (135-145)
--- NOTE | 2023-09-22 10:32 | P.PN ---
Progress Note - Text Progress Note Date: 09/22/23 Postop day 2 from anterior resection, epidural catheter inserted for postop pain control. Epidural solution: Ropivacaine 0.1% with Dilaudid 20 mcgs/ml running at 8 mL an hour. Patient pain is well controlled with visual analog score of 3/10. No nausea vomiting, itching, weakness or numbness in the legs or headache reported by the patient. Plan: To continue the epidural infusion at the current rate.
--- NOTE | 2023-09-22 14:58 | P.PN ---
Subjective Progress Note Date: 09/22/23 CHIEF COMPLAINT: Crohn's stricture of sigmoid colon HISTORY OF PRESENT ILLNESS: Patient is postop day #2 status post repair of incisional hernia and sigmoid colectomy with low anterior resection for Crohn's stricture of sigmoid colon. Patient reports her abdominal pain is better controlled. She has been up and ambulating. Epidural and Chapman catheter remain in place. She denies any nausea or vomiting. Tolerating clears. Afebrile. No bowel activity. WBC 16.9 down to 11.74 PHYSICAL EXAM: VITAL SIGNS: Reviewed. GENERAL: Well-developed in no acute distress. HEENT: No sclera icterus. Extraocular movements grossly intact. Moist buccal mucosa. Head is atraumatic, normocephalic. ABDOMEN: Soft. Nondistended. Mildly tender at incision site. Prevana wound vac intact NEUROLOGIC: Alert and oriented. Cranial nerves II through XII grossly intact. ASSESSMENT: Crohn stricture of sigmoid colon Incisional hernia PLAN: -Epidural and Chapman catheter to be discontinued tomorrow -Encourage patient to ambulate -Encourage patient to use incentive spirometer -Continue clear liquid diet -Continue IV fluids -DVT prophylaxis subcu heparin GI prophylaxis Protonix Physician Spring Machine Operator note has been reviewed by physician. Signing provider agrees with the documented findings, assessment, and plan of care. Objective - Vital Signs Vital signs: Vital Signs Temp 98.6 F 09/22/23 12:45 Pulse 62 09/22/23 12:45 Resp 17 09/22/23 12:45 BP 150/67 09/22/23 12:45 Pulse Ox 98 09/22/23 12:45 FiO2 Intake & Output 09/21/23 09/22/23 09/22/23 18:59 06:59 18:59 Intake Total 29 590 198.6 Output Total 1250 1600 Balance -1221 -1010 198.6 Intake: Intake, IV Titration 29 198.6 Amount Ropivacaine 250 mg 29 198.6 fentaNYL (PF) 625 mcg In Sodium Chloride 0.9% 188 ml @ Per Protocol EPIDURAL .Q0M PRN Rx#: [id number] Oral 590 Output: Urine 1250 1600 Other: Voiding Method Indwelling Catheter Indwelling Catheter Indwelling Catheter - Labs CBC & Chem 7: 09/22/23 05:58 09/22/23 05:58 Labs: Abnormal Lab Results - Last 24 Hours (Table) 09/22/23 09/22/23 Range/Units 05:58 05:58 WBC 11.74 H (4.50-10.00) X 10*3/uL RBC 3.33 L (4.10-5.20) X 10*6/uL Hgb 10.1 L (12.0-15.0) g/dL Hct 32.0 L (37.2-46.3) % MCHC 31.6 L (32.0-37.0) g/dL Neutrophils # 8.80 H (1.80-7.70) X 10*3/uL Monocytes # 1.03 H (0.20-1.00) X 10*3/uL Sodium 134 L (135-145) mmol/L BUN 8.8 L (9.0-27.0) mg/dL Est GFR (CKD-EPI) 48 L (>=60) BUN/Creatinine Ratio 7.33 L (12.00-20.00) Ratio Calcium 8.6 L (8.7-10.3) mg/dL
--- NOTE | 2023-09-22 18:22 | P.PN ---
Subjective Progress Note Date: 09/22/23 - History of Present Illness 09/21/2023 This is a 72-year-old female admitted with Crohn's disease, sigmoid colon stricture, status post repair of incisional hernia repair, sigmoid colectomy with low anterior resection, postop day #1. Tolerated procedure well. Positive abdominal pain, epidural dose recently increased this morning. Currently denies nausea or vomiting. Denies flatus or bowel movement. Afebrile. During the night, had false elevated readings of potassium 6.3 and glucose 599-Labs repeated with potassium of 4.1 and glucose of 154. Hemoglobin A1c 5.5. Vital signs stable, maintaining O2 sats in the high 90s on 2 L nasal cannula. Denies chest pain, palpitations or increased shortness of breath. Incentive spirometer at bedside, reinstructed on use/rationale. 09/22/2023 status post repair of incisional hernia and sigmoid colectomy with low anterior resection,postop day #2. Pain better controlled on epidural today. Reports she ambulated yesterday, tolerated exertion well and has already ambulated this morning. Tolerating clear liquid diet with no nausea ,vomiting or diarrhea. Positive flatus, no bowel movement. Afebrile, WBC trending down ,11.74. Hemoglobin 10.1, platelets 210, sodium 134, potassium 4.8, renal function mildly worsened creatinine 1.2. blood sugars controlled. Denies chest pain, palpitations or shortness of breath. Incentive spirometer up to 1000. Pathology pending. Objective - Vital Signs Vital signs: Vital Signs Temp 98.2 F 09/22/23 07:52 Pulse 59 L 09/22/23 08:45 Resp 16 09/22/23 08:45 BP 169/70 09/22/23 07:52 Pulse Ox 97 09/22/23 07:52 FiO2 Intake & Output 09/21/23 09/22/23 09/22/23 18:59 06:59 18:59 Intake Total 29 590 198.6 Output Total 1250 1600 Balance -1221 -1010 198.6 Intake: Intake, IV Titration 29 198.6 Amount Ropivacaine 250 mg 29 198.6 fentaNYL (PF) 625 mcg In Sodium Chloride 0.9% 188 ml @ Per Protocol EPIDURAL .Q0M PRN Rx#: [id number] Oral 590 Output: Urine 1250 1600 Other: Voiding Method Indwelling Catheter Indwelling Catheter Indwelling Catheter - Exam PHYSICAL EXAM: VITAL SIGNS: [As above] GENERAL: Pleasant, alert and oriented x 3 ,sitting up in bed, no acute distress,MMM. HEENT: Normocephalic, conjunctivae normal. eyes normal. NECK: Supple, no JVD. CARDIOVASCULAR: S1, S2 regular. No murmur RESPIRATION: Unlabored, equal air entry, breath sounds diminished in the bases. ABDOMEN: Soft, status post surgery, tender, prevana wound VAC present LEGS: No edema. no swelling NERVOUS SYSTEM: Cranial N 2-12 grossly normal. No focal deficits. Strength and sensation grossly intact. Skin: Warm and dry, no rash - Labs CBC & Chem 7: 09/22/23 05:58 09/22/23 05:58 Labs: Abnormal Lab Results - Last 24 Hours (Table) 09/22/23 09/22/23 Range/Units 05:58 05:58 WBC 11.74 H (4.50-10.00) X 10*3/uL RBC 3.33 L (4.10-5.20) X 10*6/uL Hgb 10.1 L (12.0-15.0) g/dL Hct 32.0 L (37.2-46.3) % MCHC 31.6 L (32.0-37.0) g/dL Neutrophils # 8.80 H (1.80-7.70) X 10*3/uL Monocytes # 1.03 H (0.20-1.00) X 10*3/uL Sodium 134 L (135-145) mmol/L BUN 8.8 L (9.0-27.0) mg/dL Est GFR (CKD-EPI) 48 L (>=60) BUN/Creatinine Ratio 7.33 L (12.00-20.00) Ratio Calcium 8.6 L (8.7-10.3) mg/dL Assessment and Plan Assessment: Crohn stricture of sigmoid colon, status post repair of incisional hernia and sigmoid colectomy with low anterior resection, pathology pending Postoperative atelectasis, expected outcome, improving Acute hypovolemic hyponatremia, improving Acute renal insufficiency Hypertension Plan: Continue on current medication regimen ,monitoring and symptomatic treatment. Pain management, DVT prophylaxis as per primary. Aggressive pulmonary toileting with incentive spirometer reinforced. IV fluids adjusted, close monitoring of renal function with repeat labs ordered for a.m. Diet advancement as per general surgery. Pathology pending. Epidural and Chapman catheter scheduled to be discontinued tomorrow as per general surgery. Increase ambulation as tolerated. The impression and plan of care has been dictated as directed. : I performed a history and examination of this patient, discussed the same with the dictator. I agree with the dictator's note ,documented as a scribe. Any additional findings or plans will be noted.
[2023-09-22] MEDS: SODIUM CHLORIDE 0.9% 1,000 ML IV SCH (21:58)
[2023-09-23] MEDS ORDERED: HYDROmorphone 1 MG/ML 1 ML SYRINGE IVP PRN (07:53)
--- NOTE | 2023-09-23 07:58 | P.PN ---
Progress Note - Text Progress Note Date: 09/23/23 Patient was seen and evaluated at bedside. Postop day # 3 status post Repair of incisional hernia, and Sigmoid colectomy with low anterior section. Patient is comfortably lying on the bed. Rated pain levels are 2 out of 10 in severity. Moving extremities well without any difficulty. He denied any red flag symptoms, pain over the catheter site. Physical exam: Vital signs: stable, afebrile Catheter site: Clean, and intact Dressing. no tenderness over the catheter area. Moving lower extremities without difficulty. Assessment: Acute postoperative pain secondary to Repair of incisional hernia, and Sigmoid colectomy with low anterior section. Plan: Epidural catheter removed in total, patient had heparin more than 6 hours ago. Spoke to the nurse hold heparin for couple of hours after epidural catheter removed. Call anesthesia as needed
[2023-09-23] MEDS: ONDANSETRON 4 MG/2 ML VIAL IVP PRN (10:10)
[2023-09-23 10:56] LABS: Basophils # (A) 0.03 X 10*3/uL (0.00-0.10); Basophils % (A) 0.4 %; Eosinophils % (A) 3.5 %; HCT 33.7 % (37.2-46.3); HGB 10.6 g/dL (12.0-15.0); Lymphocytes # (A) 1.43 X 10*3/uL (0.90-5.00); Lymphocytes % (A) 16.7 %; MCHC 31.5 g/dL (32.0-37.0); MCV 95.5 FL (80.0-97.0); Mean Platelet Volume 10.1 FL (9.5-12.2); Monocytes # (A) 0.66 X 10*3/uL (0.20-1.00); Monocytes % (A) 7.7 %; NRBC Per 100 WBC 0 X 10*3/uL (0.00-0.01); Neutrophils # (A) 6.11 X 10*3/uL (1.80-7.70); Neutrophils % (A) 71.3 %; Platelet Count 240 X 10*3/uL (140-440); RBC 3.53 X 10*6/uL (4.10-5.20); RDW 13.1 % (11.5-14.5); WBC 8.56 X 10*3/uL (4.50-10.00)
[2023-09-23 11:11] LABS: Blood Urea Nitrogen 7.7 mg/dL (9.0-27.0); Carbon Dioxide 26.6 mmol/L (21.6-31.8); Chloride 103 mmol/L (96-109); Glucose 86 mg/dL (70-110); Sodium 136 mmol/L (135-145)
[2023-09-23] MEDS: ACETAMINOPHEN IV (For NPO) 1,000 MG in EMPTY BAG 1 BAG IVPB SCH (12:40)
[2023-09-23] MEDS ORDERED: HYDROcodone/APAP 5-325MG 1 EACH TAB PO PRN (13:04)
--- NOTE | 2023-09-23 13:53 | P.PN ---
Subjective Progress Note Date: 09/23/23 CHIEF COMPLAINT: Crohn's stricture of sigmoid colon HISTORY OF PRESENT ILLNESS: Patient is postop day #3 status post repair of incisional hernia and sigmoid colectomy with low anterior resection for Crohn's stricture of sigmoid colon. Patient's pain is controlled. She denies any nausea or vomiting. Epidural, Chapman catheter and oxygen have all been discontinued. She did have a small amount of flatus and a small bloody bowel movement. Afebrile. WBC 8.56 Hgb 10.6 platelets 240 PHYSICAL EXAM: VITAL SIGNS: Reviewed. GENERAL: Well-developed in no acute distress. HEENT: No sclera icterus. Extraocular movements grossly intact. Moist buccal mucosa. Head is atraumatic, normocephalic. ABDOMEN: Soft. Nondistended. Mildly tender at incision site. Prevana wound vac intact NEUROLOGIC: Alert and oriented. Cranial nerves II through XII grossly intact. ASSESSMENT: Crohn stricture of sigmoid colon Incisional hernia PLAN: -Advance diet to full liquids -Add [place] for oral pain meds -Encourage patient to ambulate -Encourage patient to use incentive spirometer -Discontinue IV fluids -DVT prophylaxis subcu heparin GI prophylaxis Protonix Physician Loom Changer note has been reviewed by physician. Signing provider agrees with the documented findings, assessment, and plan of care. Objective - Vital Signs Vital signs: Vital Signs Temp 97.2 F L 09/23/23 07:18 Pulse 52 L 09/23/23 07:18 Resp 16 09/23/23 07:18 BP 177/76 09/23/23 07:18 Pulse Ox 98 09/23/23 07:18 FiO2 Intake & Output 09/22/23 09/23/23 09/23/23 18:59 06:59 18:59 Intake Total 198.6 Output Total 3100 3100 750 Balance -2901.4 -3100 -750 Intake: Intake, IV Titration 198.6 Amount Ropivacaine 250 mg 198.6 fentaNYL (PF) 625 mcg In Sodium Chloride 0.9% 188 ml @ Per Protocol EPIDURAL .Q0M PRN Rx#: [id number] Output: Urine 3100 3100 750 Other: Voiding Method Indwelling Catheter Indwelling Catheter # Voids 1 - Labs CBC & Chem 7: 09/23/23 06:48 09/23/23 06:48 Labs: Abnormal Lab Results - Last 24 Hours (Table) 09/23/23 09/23/23 Range/Units 06:48 06:48 RBC 3.53 L (4.10-5.20) X 10*6/uL Hgb 10.6 L (12.0-15.0) g/dL Hct 33.7 L (37.2-46.3) % MCHC 31.5 L (32.0-37.0) g/dL BUN 7.7 L (9.0-27.0) mg/dL Est GFR (CKD-EPI) 53 L (>=60) BUN/Creatinine Ratio 7.00 L (12.00-20.00) Ratio
--- NOTE | 2023-09-24 05:08 | P.PN ---
Subjective Progress Note Date: 09/23/23 This is a 72-year-old female admitted with Crohn's disease, sigmoid colon stricture, status post repair of incisional hernia repair, sigmoid colectomy with low anterior resection, postop day #1. Tolerated procedure well. Positive abdominal pain, epidural dose recently increased this morning. Currently denies nausea or vomiting. Denies flatus or bowel movement. Afebrile. During the night, had false elevated readings of potassium 6.3 and glucose 599-Labs repeated with potassium of 4.1 and glucose of 154. Hemoglobin A1c 5.5. Vital signs stable, maintaining O2 sats in the high 90s on 2 L nasal cannula. Denies chest pain, palpitations or increased shortness of breath. Incentive spirometer at bedside, reinstructed on use/rationale. 09/22/2023 status post repair of incisional hernia and sigmoid colectomy with low anterior resection,postop day #2. Pain better controlled on epidural today. Reports she ambulated yesterday, tolerated exertion well and has already ambulated this morning. Tolerating clear liquid diet with no nausea ,vomiting or diarrhea. Positive flatus, no bowel movement. Afebrile, WBC trending down ,11.74. Hemoglobin 10.1, platelets 210, sodium 134, potassium 4.8, renal function mildly worsened creatinine 1.2. blood sugars controlled. Denies chest pain, palpitations or shortness of breath. Incentive spirometer up to 1000. Pathology pending. 09/23/2023 Patient is seen in follow-up today currently sitting up in the chair reporting feeling unwell today. Patient is reporting some nausea after walking back from the bathroom. General surgery as admitting services has discontinued the pain pump and is maintained on IV pain medications. Patient encouraged to continue using incentive spirometer at least 10 times every hour while awake. Patient appears weak and fatigued on exam. Patient is afebrile with no reports of chest pain or shortness of breath. Patient reports occasional nausea with abdominal pain but denies vomiting. Review of systems: Constitutional: reports of fatigue, no fever, or chills Cardiovascular: No reports of chest pain or palpitations Respiratory: No reports of shortness of breath or cough GI: reports of occasional nausea, no vomiting, reports passing gas, no bowel movement as of yet although did have an episode of blood noted from the rectum : No reports of dysuria or retention Neurovascular: reports of generalized weakness All medications have been reviewed Physical exam: Gen: This is a 72-year-old female who is awake, alert and oriented x 3, thin built, elderly appearing, ill-appearing HEENT: Head is atraumatic, normocephalic. Pupils equal, round. Sclerae is anicteric. NECK: Supple. No JVD. No lymphadenopathy. No thyromegaly. LUNGS: Clear to auscultation. No wheezes or rhonchi. No intercostal retrac tions. HEART: Regular rate and rhythm. No murmur. ABDOMEN: Soft. Bowel sounds are present. No masses. tenderness. EXTREMITIES: No pedal edema. No calf tenderness. NEUROLOGICAL: Patient is awake, alert and oriented x3. Cranial nerves 2 through 12 are grossly intact. Diffusely weak Assessment: Crohn stricture of sigmoid colon, status post repair of incisional hernia and sigmoid colectomy with low anterior resection, pathology pending Postoperative atelectasis, expected outcome, improving Acute hypovolemic hyponatremia, improving Acute renal insufficiency Hypertension history GI prophylaxis DVT prophylaxis Full code Plan: Patient is continued on IV hydration although being discontinued per surgery and diet is being advanced to full liquids Epidural has been discontinued and Chapman catheter has been removed Patient is reporting passing gas and did have a small scant amount of blood noted from the rectum. Hemoglobin is stable recommend monitoring for any further bleeding Encouraged to increase activity as tolerated Continue incentive spirometer use at least 10 times every hour while awake We will continue to follow with general surgery during hospitalization. Thank you kindly for this consultation. The impression and plan of care has been dictated by Gracie Palacios, Nurse Practitioner as directed. Dr. Gini MD I have performed a history and examination and MDM of this patient, discussed the same with the dictator, and agree with the dictator's assessment and plan as written ,documented as a scribe. Based on total visit time, I have performed more than 50% of the visit. Objective - Vital Signs Vital signs: Vital Signs Temp 97.2 F L 09/24/23 02:00 Pulse 60 09/24/23 02:00 Resp 18 09/23/23 20:00 BP 154/98 09/24/23 02:00 Pulse Ox 96 09/24/23 02:00 FiO2 Intake & Output 09/23/23 09/23/2309/23/24 06:59 18:59 06:59 Intake Total 625 Output Total 3100 750 Balance -3100 -125 Intake: Intake, IV Titration 625 Amount ACETAMINOPHEN IV (For NPO 100 ) 1,000 mg In Empty Bag 1 bag @ 400 mls/hr IVPB Q6HR [facility] Rx#:[id number] Sodium Chloride 0.9% 1, 525 000 ml @ 75 mls/hr IV . [id number] [facility] Rx#:[id number] Output: Urine 3100 750 Other: Voiding Method Indwelling Catheter Toilet Toilet # Voids 1 0 # Bowel Movements 1 0 - Labs CBC & Chem 7: 09/23/23 06:48 09/23/23 06:48 Labs: Abnormal Lab Results - Last 24 Hours (Table) 09/23/23 09/23/23 Range/Units 06:48 06:48 RBC 3.53 L (4.10-5.20) X 10*6/uL Hgb 10.6 L (12.0-15.0) g/dL Hct 33.7 L (37.2-46.3) % MCHC 31.5 L (32.0-37.0) g/dL BUN 7.7 L (9.0-27.0) mg/dL Est GFR (CKD-EPI) 53 L (>=60) BUN/Creatinine Ratio 7.00 L (12.00-20.00) Ratio
[2023-09-24 09:09] LABS: Magnesium 2.2 mg/dL (1.5-2.4)
[2023-09-24 09:18] LABS: BUN/Creat Ratio 9.69 Ratio (12.00-20.00); Blood Urea Nitrogen 12.6 mg/dL (9.0-27.0); Calcium 8.4 mg/dL (8.7-10.3); Carbon Dioxide 22.6 mmol/L (21.6-31.8); Chloride 104 mmol/L (96-109); Glucose 81 mg/dL (70-110); Potassium 4.7 mmol/L (3.5-5.5); Sodium 138 mmol/L (135-145)
--- NOTE | 2023-09-24 14:20 | P.PN ---
Subjective Progress Note Date: 09/24/23 This is a 72-year-old female admitted with Crohn's disease, sigmoid colon stricture, status post repair of incisional hernia repair, sigmoid colectomy with low anterior resection, postop day #1. Tolerated procedure well. Positive abdominal pain, epidural dose recently increased this morning. Currently denies nausea or vomiting. Denies flatus or bowel movement. Afebrile. During the night, had false elevated readings of potassium 6.3 and glucose 599-Labs repeated with potassium of 4.1 and glucose of 154. Hemoglobin A1c 5.5. Vital signs stable, maintaining O2 sats in the high 90s on 2 L nasal cannula. Denies chest pain, palpitations or increased shortness of breath. Incentive spirometer at bedside, reinstructed on use/rationale. 09/22/2023 status post repair of incisional hernia and sigmoid colectomy with low anterior resection,postop day #2. Pain better controlled on epidural today. Reports she ambulated yesterday, tolerated exertion well and has already ambulated this morning. Tolerating clear liquid diet with no nausea ,vomiting or diarrhea. Positive flatus, no bowel movement. Afebrile, WBC trending down ,11.74. Hemoglobin 10.1, platelets 210, sodium 134, potassium 4.8, renal function mildly worsened creatinine 1.2. blood sugars controlled. Denies chest pain, palpitations or shortness of breath. Incentive spirometer up to 1000. Pathology pending. 09/23/2023 Patient is seen in follow-up today currently sitting up in the chair reporting feeling unwell today. Patient is reporting some nausea after walking back from the bathroom. General surgery as admitting services has discontinued the pain pump and is maintained on IV pain medications. Patient encouraged to continue using incentive spirometer at least 10 times every hour while awake. Patient appears weak and fatigued on exam. Patient is afebrile with no reports of chest pain or shortness of breath. Patient reports occasional nausea with abdominal pain but denies vomiting. 09/24/2023 Patient is seen and evaluated in follow-up this morning currently sitting up in the chair feeling much better today doing well up and walking and reports using her incentive spirometer. Patient is tolerating current diet and being advanced per surgery. Patient is voiding with no difficulties and reports did have a small bowel movement this morning. Patient is afebrile with no reports of chest pain or shortness of breath. Patient is tolerating diet with no reported nausea or vomiting. Labs today reveal a sodium of 138 with a potassium of 4.7, BUN is 12.6 and creatinine 1.3, magnesium is 2.2. Patient reports she was told she will most likely be staying over the weekend per surgery. Encouraged increase activity as tolerated and continued incentive spirometer use. Review of systems: Constitutional: reports of fatigue, no fever, or chills Cardiovascular: No reports of chest pain or palpitations Respiratory: No reports of shortness of breath or cough GI: reports of occasional nausea, no vomiting, reports passing gas, patient reports had a small bowel movement today : No reports of dysuria or retention Neurovascular: reports of generalized weakness and is improving All medications have been reviewed Physical exam: Gen: This is a 72-year-old female who is awake, alert and oriented x 3, thin built, elderly appearing HEENT: Head is atraumatic, normocephalic. Pupils equal, round. Sclerae is anicteric. NECK: Supple. No JVD. No lymphadenopathy. No thyromegaly. LUNGS: Clear to auscultation. No wheezes or rhonchi. No intercostal retractions. HEART: Regular rate and rhythm. No murmur. ABDOMEN: Soft. Bowel sounds are present. No masses. tenderness noted on palpation. EXTREMITIES: No pedal edema. No calf tenderness. NEUROLOGICAL: Patient is awake, alert and oriented x3. Cranial nerves 2 through 12 are grossly intact. Assessment: Crohn stricture of sigmoid colon, status post repair of incisional hernia and sigmoid colectomy with low anterior resection, pathology pending Postoperative atelectasis, expected outcome, improved Acute hypovolemic hyponatremia, improved History of chronic kidney disease, stage III History of anxiety Hypertension history GI prophylaxis DVT prophylaxis Full code Plan: Patient is continued on full liquid diet and will continue for now per general surgery recommendations Epidural has been discontinued and Chapman catheter has been removed. Patient is up and walking to the bathroom and voiding with no difficulties. Patient reports had a bowel movement this morning very small Encouraged to increase activity as tolerated Continue incentive spirometer use at least 10 times every hour while awake Patient reports surgery wants to monitor for another few days with slow advancing diet and improved bowel function prior to discharge We will continue to follow with general surgery during hospitalization. Thank you kindly for this consultation. The impression and plan of care has been dictated by Gracie Palacios Nurse Pract itioner as directed. Dr. Gini MD I have performed a history and examination and MDM of this patient, discussed the same with the dictator, and agree with the dictator's assessment and plan as written ,documented as a scribe. Based on total visit time, I have performed more than 50% of the visit. Objective - Vital Signs Vital signs: Vital Signs Temp 98.2 F 09/24/23 07:34 Pulse 64 09/24/23 07:34 Resp 16 09/24/23 07:34 BP 149/71 09/24/23 07:34 Pulse Ox 97 09/24/23 07:34 FiO2 Intake & Output 09/23/23 09/24/23 09/24/23 18:59 06:59 18:59 Intake Total 625 Output Total 750 Balance -125 Intake: Intake, IV Titration 625 Amount ACETAMINOPHEN IV (For NPO 100 ) 1,000 mg In Empty Bag 1 bag @ 400 mls/hr IVPB Q6HR [facility] Rx#:[id number] Sodium Chloride 0.9% 1, 525 000 ml @ 75 mls/hr IV . [id number] [facility] Rx#:[id number] Output: Urine 750 Other: Voiding Method Toilet Toilet # Voids 1 3 # Bowel Movements 1 0 - Labs CBC & Chem 7: 09/23/23 06:48 09/24/23 05:31 Labs: Abnormal Lab Results - Last 24 Hours (Table) 09/23/23 09/23/23 09/24/23 Range/Units 06:48 06:48 05:31 RBC 3.53 L (4.10-5.20) X 10*6/uL Hgb 10.6 L (12.0-15.0) g/dL Hct 33.7 L (37.2-46.3) % MCHC 31.5 L (32.0-37.0) g/dL BUN 7.7 L (9.0-27.0) mg/dL Est GFR (CKD-EPI) 53 L 43 L (>=60) BUN/Creatinine Ratio 7.00 L 9.69 L (12.00-20.00) Ratio Calcium 8.4 L (8.7-10.3) mg/dL
--- NOTE | 2023-09-24 15:25 | P.PN ---
Subjective Progress Note Date: 09/24/23 CHIEF COMPLAINT: Crohn's stricture of sigmoid colon HISTORY OF PRESENT ILLNESS: Patient is postop day #4 status post repair of incisional hernia and sigmoid colectomy with low anterior resection for Crohn's stricture of sigmoid colon. Patient's pain is controlled. She denies any nausea or vomiting. She is having flatus. No bowel movement yet. Tolerating full liquids. Afebrile. PHYSICAL EXAM: VITAL SIGNS: Reviewed. GENERAL: Well-developed in no acute distress. HEENT: No sclera icterus. Extraocular movements grossly intact. Moist buccal mucosa. Head is atraumatic, normocephalic. ABDOMEN: Soft. Nondistended. Mildly tender at incision site. Prevana wound vac intact NEUROLOGIC: Alert and oriented. Cranial nerves II through XII grossly intact. ASSESSMENT: Crohn stricture of sigmoid colon Incisional hernia PLAN: -Continue Full liquids -Continue pain management -Encourage patient to ambulate -Encourage patient to use incentive spirometer -Anticipate discharge on Wednesday -DVT prophylaxis subcu heparin GI prophylaxis Protonix Physician Maintenance Specialist note has been reviewed by physician. Signing provider agrees with the documented findings, assessment, and plan of care. Objective - Vital Signs Vital signs: Vital Signs Temp 97.8 F 09/24/23 13:22 Pulse 64 09/24/23 13:22 Resp 17 09/24/23 13:22 BP 146/86 09/24/23 13:22 Pulse Ox 99 09/24/23 13:22 FiO2 Intake & Output 09/23/23 09/24/23 09/24/23 18:59 06:59 18:59 Intake Total 625 Output Total 750 Balance -125 Intake: Intake, IV Titration 625 Amount ACETAMINOPHEN IV (For NPO 100 ) 1,000 mg In Empty Bag 1 bag @ 400 mls/hr IVPB Q6HR [facility] Rx#:[id number] Sodium Chloride 0.9% 1, 525 000 ml @ 75 mls/hr IV . [id number] [facility] Rx#:[id number] Output: Urine 750 Other: Voiding Method Toilet Toilet # Voids 1 3 # Bowel Movements 1 0 - Labs CBC & Chem 7: 09/23/23 06:48 09/24/23 05:31 Labs: Abnormal Lab Results - Last 24 Hours (Table) 09/24/23 Range/Units 05:31 Est GFR (CKD-EPI) 43 L (>=60) BUN/Creatinine Ratio 9.69 L (12.00-20.00) Ratio Calcium 8.4 L (8.7-10.3) mg/dL
[2023-09-25] MEDS: PANTOPRAZOLE 40 MG TABLET PO SCH (09:50)
--- NOTE | 2023-09-25 12:56 | P.PN ---
Subjective Progress Note Date: 09/25/23 This is a 72-year-old female admitted with Crohn's disease, sigmoid colon stricture, status post repair of incisional hernia repair, sigmoid colectomy with low anterior resection, postop day #1. Tolerated procedure well. Positive abdominal pain, epidural dose recently increased this morning. Currently denies nausea or vomiting. Denies flatus or bowel movement. Afebrile. During the night, had false elevated readings of potassium 6.3 and glucose 599-Labs repeated with potassium of 4.1 and glucose of 154. Hemoglobin A1c 5.5. Vital signs stable, maintaining O2 sats in the high 90s on 2 L nasal cannula. Denies chest pain, palpitations or increased shortness of breath. Incentive spirometer at bedside, reinstructed on use/rationale. 09/22/2023 status post repair of incisional hernia and sigmoid colectomy with low anterior resection,postop day #2. Pain better controlled on epidural today. Re ports she ambulated yesterday, tolerated exertion well and has already ambulated this morning. Tolerating clear liquid diet with no nausea ,vomiting or diarrhea. Positive flatus, no bowel movement. Afebrile, WBC trending down ,11.74. Hemoglobin 10.1, platelets 210, sodium 134, potassium 4.8, renal function mildly worsened creatinine 1.2. blood sugars controlled. Denies chest pain, palpitations or shortness of breath. Incentive spirometer up to 1000. Pathology pending. 09/23/2023 Patient is seen in follow-up today currently sitting up in the chair reporting feeling unwell today. Patient is reporting some nausea after walking back from the bathroom. General surgery as admitting services has discontinued the pain pump and is maintained on IV pain medications. Patient encouraged to continue using incentive spirometer at least 10 times every hour while awake. Patient appears weak and fatigued on exam. Patient is afebrile with no reports of chest pain or shortness of breath. Patient reports occasional nausea with abdominal pain but denies vomiting. 09/24/2023 Patient is seen and evaluated in follow-up this morning currently sitting up in the chair feeling much better today doing well up and walking and reports using her incentive spirometer. Patient is tolerating current diet and being advanced per surgery. Patient is voiding with no difficulties and reports did have a small bowel movement this morning. Patient is afebrile with no reports of chest pain or shortness of breath. Patient is tolerating diet with no reported nausea or vomiting. Labs today reveal a sodium of 138 with a potassium of 4.7, BUN is 12.6 and creatinine 1.3, magnesium is 2.2. Patient reports she was told she will most likely be staying over the weekend per surgery. Encouraged increase activity as tolerated and continued incentive spirometer use. 09/25/2023 Patient is evaluated today sitting up in the bed. She is family at the bedside. She is been up in the bathroom and able to shower today. She reports having 3 bowel movements today. Diet has been upgraded to soft she is not having any nausea vomiting. She does report her stool has been looser. She is having minimal abdominal discomfort at this time. No Lab work available for today. Hemodynamically she is stable. Review of systems: Constitutional: reports of fatigue, no fever, or chills Cardiovascular: No reports of chest pain or palpitations Respiratory: No reports of shortness of breath or cough GI: Reports of occasional nausea, no vomiting, reports passing gas, Patient is having bowel movements. : No reports of dysuria or retention Neurovascular: reports of generalized weakness and is improving All medications have been reviewed Physical exam: Gen: This is a 72-year-old female who is awake, alert and oriented x 3, thin built, elderly appearing HEENT: Head is atraumatic, normocephalic. Pupils equal, round. Sclerae is anicteric. NECK: Supple. No JVD. No lymphadenopathy. No thyromegaly. LUNGS: Clear to auscultation. No wheezes or rhonchi. No intercostal retractions. HEART: Regular rate and rhythm. No murmur. ABDOMEN: Soft. Bowel sounds are present. No masses. tenderness noted on palp ation. EXTREMITIES: No pedal edema. No calf tenderness. NEUROLOGICAL: Patient is awake, alert and oriented x3. Cranial nerves 2 through 12 are grossly intact. Assessment: Crohn stricture of sigmoid colon, status post repair of incisional hernia and sigmoid colectomy with low anterior resection, pathology revealing no malignancy; positive for active Chron's colitis. Postoperative atelectasis, expected outcome, improved Acute hypovolemic hyponatremia, improved History of chronic kidney disease, stage III History of anxiety Hypertension history GI prophylaxis DVT prophylaxis Full code Plan: Neurosurgery has upgraded the patient to a soft diet. Epidural has been discontinued and Chapman catheter has been removed. Patient is up and walking to the bathroom and voiding with no difficulties. She is having bowel movements. Encouraged to increase activity as tolerated Continue incentive spirometer use at least 10 times every hour while awake Patient reports surgery wants to monitor for another few days with slow advancing diet and improved bowel function prior to discharge We will continue to follow with general surgery during hospitalization. Thank you kindly for this consultation. The impression and plan of care has been dictated by Herminia Barraza, Nurse Practitioner as directed. Dr. Gini MD I have performed a history and physical examination and medical decision making of this patient, discussed the same with the dictator, and agree with the dictators assessment and plan as written, documented as a scribe. Based on total visit time, I have performed more than 50% of this visit. Objective - Vital Signs Vital signs: Vital Signs Temp 98.0 F 09/25/23 07:22 Pulse 84 09/25/23 08:50 Resp 18 09/25/23 08:50 BP 151/82 09/25/23 07:22 Pulse Ox 99 09/25/23 07:22 FiO2 Intake & Output 09/24/23 09/25/23 09/25/23 18:59 06:59 18:59 Intake Total 1620 Balance 1620 Intake: Oral 1620 Other: Voiding Method Toilet Toilet # Voids 2 1 # Bowel Movements 2 2 - Labs CBC & Chem 7: 09/23/23 06:48 09/24/23 05:31 Assessment and Plan Time with Patient: Less than 30
--- NOTE | 2023-09-25 23:00 | P.PN ---
Subjective Principal diagnosis: Patient seen and evaluated bedside. Patient will well denies abdominal pain nausea or vomiting. Objective - Vital Signs Vital signs: Vital Signs Temp 98.3 F 09/25/23 18:51 Pulse 57 L 09/25/23 18:51 Resp 16 09/25/23 18:51 BP 165/67 09/25/23 18:51 Pulse Ox 98 09/25/23 18:51 FiO2 Intake & Output 09/25/23 09/25/23 09/26/23 06:59 18:59 07:59 Intake Total 360 Balance 360 Intake: Oral 360 Other: Voiding Method Toilet Toilet Toilet # Voids 2 4 # Bowel Movements 2 1 - Exam Gen. no acute distress alert and oriented 3 Cardiovascular regular rate and rhythm Pulmonary nonlabored breathing Abdomen is soft, minimally tender to palpation minimally distended no guarding or rebound tenderness, surgical sites are clean dry and intact - Labs CBC & Chem 7: 09/23/23 06:48 09/24/23 05:31 Assessment and Plan Assessment: 72-year-old female status post sigmoid colectomy/LAR secondary to Crohn's Currently on a full liquid diet discuss case with primary surgeon okay to advance diet Labs currently stable Continue to monitor for bowel function Continue to encourage ambulation Continue to encourage incentive spirometer use Time with Patient: Greater than 30
--- NOTE | 2023-09-26 11:49 | P.DS ---
Providers Date of admission: 09/20/23 05:49 Expected date of discharge: 09/26/23 Attending physician: Christian Yeung Consults: 09/20/23 09:49 Consult Physician Routine Consulting Provider: Aime Kaur Reason/Comments: med manage Do you want consulting provider notified?: Yes Primary care physician: Aime Kaur [facility] Course: Patient underwent low anterior resection for Crohn's related stricture last week. Patient's ileus has resolved. Now tolerating dysphagia diet. Having bowel function. No pain. She would like to go home today. Will plan discharge. Follow-up with Dr. Anjana Boone. Plan - Discharge Summary Discharge Rx Participant: Yes New Discharge Prescriptions: No Action Levothyroxine Sodium [Synthroid] 88 mcg PO QAM inFLIXimab [Remicade] 500 mg IVPB Q56D carvediloL [Coreg] 6.25 mg PO BID Ergocalciferol (Vitamin D2) [Drisdol (50,000 Iu)] 1,250 mcg PO Q30D amLODIPine [Norvasc] 5 mg PO QAM Discharge Medication List Levothyroxine Sodium [Synthroid] 88 mcg PO QAM 10/06/14 [History] inFLIXimab [Remicade] 500 mg IVPB Q56D 02/23/19 [History] Ergocalciferol (Vitamin D2) [Drisdol (50,000 Iu)] 1,250 mcg PO Q30D 04/22/21 [History] amLODIPine [Norvasc] 5 mg PO QAM 01/12/22 [History] carvediloL [Coreg] 6.25 mg PO BID 06/16/22 [History]
[2023-09-26 13:20] VITALS: BP 148/65; PULSE 58; RESP 16; TEMP 98
--- NOTE | 2023-09-27 23:07 | P.PN ---
Subjective Progress Note Date: 09/26/23 This is a 72-year-old female admitted with Crohn's disease, sigmoid colon stricture, status post repair of incisional hernia repair, sigmoid colectomy with low anterior resection, postop day #1. Tolerated procedure well. Positive abdominal pain, epidural dose recently increased this morning. Currently denies nausea or vomiting. Denies flatus or bowel movement. Afebrile. During the night, had false elevated readings of potassium 6.3 and glucose 599-Labs repeated with potassium of 4.1 and glucose of 154. Hemoglobin A1c 5.5. Vital signs stable, maintaining O2 sats in the high 90s on 2 L nasal cannula. Denies chest pain, palpitations or increased shortness of breath. Incentive spirometer at bedside, reinstructed on use/rationale. 09/22/2023 status post repair of incisional hernia and sigmoid colectomy with low anterior resection,postop day #2. Pain better controlled on epidural today. Re ports she ambulated yesterday, tolerated exertion well and has already ambulated this morning. Tolerating clear liquid diet with no nausea ,vomiting or diarrhea. Positive flatus, no bowel movement. Afebrile, WBC trending down ,11.74. Hemoglobin 10.1, platelets 210, sodium 134, potassium 4.8, renal function mildly worsened creatinine 1.2. blood sugars controlled. Denies chest pain, palpitations or shortness of breath. Incentive spirometer up to 1000. Pathology pending. 09/23/2023 Patient is seen in follow-up today currently sitting up in the chair reporting feeling unwell today. Patient is reporting some nausea after walking back from the bathroom. General surgery as admitting services has discontinued the pain pump and is maintained on IV pain medications. Patient encouraged to continue using incentive spirometer at least 10 times every hour while awake. Patient appears weak and fatigued on exam. Patient is afebrile with no reports of chest pain or shortness of breath. Patient reports occasional nausea with abdominal pain but denies vomiting. 09/24/2023 Patient is seen and evaluated in follow-up this morning currently sitting up in the chair feeling much better today doing well up and walking and reports using her incentive spirometer. Patient is tolerating current diet and being advanced per surgery. Patient is voiding with no difficulties and reports did have a small bowel movement this morning. Patient is afebrile with no reports of chest pain or shortness of breath. Patient is tolerating diet with no reported nausea or vomiting. Labs today reveal a sodium of 138 with a potassium of 4.7, BUN is 12.6 and creatinine 1.3, magnesium is 2.2. Patient reports she was told she will most likely be staying over the weekend per surgery. Encouraged increase activity as tolerated and continued incentive spirometer use. 09/25/2023 Patient is evaluated today sitting up in the bed. She is family at the bedside. She is been up in the bathroom and able to shower today. She reports having 3 bowel movements today. Diet has been upgraded to soft she is not having any nausea vomiting. She does report her stool has been looser. She is having minimal abdominal discomfort at this time. No Lab work available for today. Hemodynamically she is stable. 09/26/2023 Patient is seen in follow-up today feeling the bedside. She has been up ambulating. Patient continues to have bowel movements and reports that they are looser. She remains on a chopped diet. Hemodynamically she is stable. Pulm disease ('s assessment Review of systems: Constitutional: reports of fatigue, no fever, or chills Cardiovascular: No reports of chest pain or palpitations Respiratory: No reports of shortness of breath or cough GI: Reports of occasional nausea, no vomiting, reports passing gas, Patient is having bowel movements. : No reports of dysuria or retention Neurovascular: reports of generalized weakness and is improving All medications have been reviewed Physical exam: Gen: This is a 72-year-old female who is awake, alert and oriented x 3, thin built, elderly appearing HEENT: Head is atraumatic, normocephalic. Pupils equal, round. Sclerae is anicteric. NECK: Supple. No JVD. No lymphadenopathy. No thyromegaly. LUNGS: Clear to auscultation. No wheezes or rhonchi. No intercostal retractions. HEART: Regular rate and rhythm. No murmur. ABDOMEN: Soft. Bowel sounds are present. No masses. tenderness noted on palpation. EXTREMITIES: No pedal edema. No calf tenderness. NEUROLOGICAL: Patient is awake, alert and oriented x3. Cranial nerves 2 through 12 are grossly intact. Assessment: Crohn stricture of sigmoid colon, status post repair of incisional hernia and sigmoid colectomy with low anterior resection, pathology revealing no malignancy; positive for active Chron's colitis. Postoperative atelectasis, expected outcome, improved Acute hypovolemic hyponatremia, improved History of chronic kidney disease, stage III History of anxiety Hypertension history GI prophylaxis DVT prophylaxis Full code Plan: Neurosurgery has upgraded the patient to a soft diet. Epidural has been discontinued and Chapman catheter has been removed. Patient is up and walking to the bathroom and voiding with no difficulties. She is having bowel movements. Encouraged to increase activity as tolerated Continue incentive spirometer use at least 10 times every hour while awake Patient reports surgery wants to monitor for another few days with slow advancing diet and improved bowel function prior to discharge We will continue to follow with general surgery during hospitalization. Thank you kindly for this consultation. Medically patient is stable for discharge home. Follow up with Dr. Yeung outpatient in 1 week, follow up with PCP Dr. Kaur in 1 to 2 days. The impression and plan of care has been dictated by Herminia Barraza, Nurse Practitioner as directed. Dr. Gini MD I have performed a history and physical examination and medical decision making of this patient, discussed the same with the dictator, and agree with the dictators assessment and plan as written, documented as a scribe. Based on total visit time, I have performed more than 50% of this visit. Objective - Vital Signs Vital signs: Vital Signs Temp 98.0 F 09/26/23 12:30 Pulse 58 L 09/26/23 12:30 Resp 16 09/26/23 12:30 BP 148/65 09/26/23 12:30 Pulse Ox 98 09/26/23 12:30 FiO2 - Labs CBC & Chem 7: 09/23/23 06:48 09/24/23 05:31 Assessment and Plan Time with Patient: Less than 30
== END 2023-09-26 14:05 | disposition home or self-care (01) | DRG 330 ==
LOC: 2ORMAIN 05:49 → EDSTATUS 09:20 → 5NMEDONC 12:43
PROVIDERS: ADMIT Surgery; ATTEND Surgery
PROC: 0DBN0ZZ Excision of Sigmoid Colon, Open Approach (ICD-10-PCS; principal; 2023-09-20 07:30)
PROC: 0WQF0ZZ Repair Abdominal Wall, Open Approach (ICD-10-PCS; principal; 2023-09-20 07:30)
DX: K50.112 Crohn's disease of large intestine with intestinal obstruction (principal); E87.1 Hypo-osmolality and hyponatremia; J98.11 Atelectasis; E89.0 Postprocedural hypothyroidism; I12.9 Hypertensive chronic kidney disease with stage 1 through stage 4 chronic kidney disease, or unspecified chronic kidney disease; N18.30 Chronic kidney disease, stage 3 unspecified; K43.2 Incisional hernia without obstruction or gangrene; E86.1 Hypovolemia; H91.90 Unspecified hearing loss, unspecified ear; F41.9 Anxiety disorder, unspecified; L30.9 Dermatitis, unspecified; M19.90 Unspecified osteoarthritis, unspecified site; L29.9 Pruritus, unspecified; Z79.890 Hormone replacement therapy; Z79.899 Other long term (current) drug therapy; Z85.850 Personal history of malignant neoplasm of thyroid; Z86.16 Personal history of COVID-19; Z86.19 Personal history of other infectious and parasitic diseases
CPT/HCPCS: 80048; 83036; 83735; 84132; 85025; 88305; 88307

== ENCOUNTER → 2023-11-01 | Outpatient (CLI) | payer MEDICARE, BC ==
--- NOTE | 2023-11-01 23:34 | MM ---
Reason for Exam: Screening (asymptomatic). Last mammogram was performed 1 year(s) and 6 month(s) ago. Patient History: Menarche at age 11. First Full-Term at age 16. Left ovary removed at age 31. Right ovary removed at age 31. Hysterectomy at age 31. Postmenopausal. Other cancer. Patient used Estrogen for 15 years. Hormonal Contraceptives, starting at age 18 for 2 years. Risk Values: Akosua 5 year model risk: 1.3%. NCI Lifetime model risk: 2.8%. Prior Study Comparison: 04/10/2016 Bilateral Screening Mammogram, [facility]. 04/21/2018 Bilateral Screening Mammogram, [facility]. 05/05/2022 Bilateral MG 3D screening mammo w/cad, [facility]. Tissue Density: The breasts are heterogeneously dense, which may obscure small masses. Findings: Analyzed By CAD. The pattern is symmetrical. No significant interval change is evident. No suspicious groups of microcalcifications, spiculated or lobular masses, architectural distortion or other secondary signs of malignancy are mammographically apparent. Overall Assessment: Benign, BI-RAD 2 Management: Screening Mammogram of both breasts in 1 year. A negative mammogram report should not preclude additional follow up of suspicious palpable abnormalities. Patient should continue monthly self breast exam. A clinical breast exam by your physician is recommended on an annual basis and results should be correlated with mammographic findings. Electronically signed and approved by: Felipe Baig D.O. Radiologis
== END | disposition home or self-care (01) ==
LOC: RADMAMWWP 06:55
PROVIDERS: ATTEND Family Medicine
DX: Z12.31 Encounter for screening mammogram for malignant neoplasm of breast (principal); Z78.0 Asymptomatic menopausal state
CPT/HCPCS: 77063; 77067

== ENCOUNTER → 2024-02-29 | Outpatient (CLI) | payer MEDICARE, BC ==
--- NOTE | 2024-04-19 11:01 | US ---
EXAMINATION TYPE: US thyroid st tissue head/neck DATE OF EXAM: 02/29/2024 COMPARISON: 07/22/2022 CLINICAL INDICATION: Female, 73 years old with history of NODULE; GLAND SIZE: Right Lobe: 5.4 x 1.9 x 1.6 cm Overall Parenchyma: heterogeneous Left Lobe: 1.2 x 0.7 x 0.6 cm, previously 0.9 x 0.6 x 0.6 cm Overall Parenchyma: heterogeneous Isthmus Thickness: 0.3 cm NODULES RIGHT: # of nodules measured on right: 0 LEFT: Residual tissue seen in the left thyroid bed ISTHMUS: # of nodules measured in the isthmus: 0 Bilateral neck scanned, no evidence of lymphadenopathy. IMPRESSION: Residual tissue redemonstrated within the left thyroidectomy bed currently measuring 1.2 x 0.7 x 0.6 cm (previously measured 0.9 x 0.6 x 0.6 cm). Ongoing follow-up can be performed. No new suspicious ma ss or nodularity. Correlate with tumor markers.
== END | disposition home or self-care (01) ==
LOC: RADUSWWP 12:00
PROVIDERS: ATTEND Family Medicine
DX: Z85.850 Personal history of malignant neoplasm of thyroid (principal)
CPT/HCPCS: 76536

== ENCOUNTER → 2024-03-23 | Outpatient (CLI) | payer MEDICARE, BC ==
--- NOTE | 2024-03-23 19:39 | US ---
EXAMINATION TYPE: US thyroid st tissue head/neck DATE OF EXAM: 03/23/2024 COMPARISON: 07/22/2022 CLINICAL INDICATION: Female, 73 years old with history of Z85.850 THYROID CA; Left thyroidectomy GLAND SIZE: Right Lobe: 5.9 x 1.7 x 2.0 cm Overall Parenchyma: heterogeneous Left Lobe: 1.4 x 0.7 x 0.6 cm (previously measuring 9 x 6 x 6 mm) Overall Parenchyma: homogeneous Isthmus Thickness: 0.3 cm NODULES RIGHT: # of nodules measured on right: 0 LEFT: Residual tissue seen left thyroid bed ISTHMUS: # of nodules measured in the isthmus: 0 Bilateral neck scanned, no evidence of lymphadenopathy. IMPRESSION: Residual tissue redemonstrated within the left thyroidectomy bed currently measuring 1.4 x 0.7 x 0.6 cm (previously measuring 9 x 6 x 6 mm). Ongoing follow-up can be performed. No definite suspicious ma ss or nodularity. Correlate with tumor markers.
== END | disposition home or self-care (01) ==
LOC: RADUSWWP 10:50
PROVIDERS: ATTEND Family Medicine
DX: Z85.850 Personal history of malignant neoplasm of thyroid (principal)
CPT/HCPCS: 76536

== ENCOUNTER → 2024-04-03 | Outpatient (CLI) | payer MEDICARE, BC ==
[2024-04-03 10:31] LABS: Blood Urea Nitrogen 27.2 mg/dL (9.0-27.0); Calcium 9.3 mg/dL (8.7-10.3); Carbon Dioxide 23.1 mmol/L (21.6-31.8); Chloride 104 mmol/L (96-109); Glucose 96 mg/dL (70-110); Sodium 138 mmol/L (135-145)
== END | disposition home or self-care (01) ==
LOC: LABWHC1 07:29
PROVIDERS: ATTEND Nurse Practitioner Family
DX: N18.32 Chronic kidney disease, stage 3b (principal)
CPT/HCPCS: 36415; 80048

== ENCOUNTER → 2024-06-14 | Outpatient (CLI) | payer MEDICARE, BC ==
[2024-06-14 15:52] LABS: Basophils # (A) 0.06 X 10*3/uL (0.00-0.10); Basophils % (A) 0.9 %; Eosinophils # (A) 0.12 X 10*3/uL (0.04-0.35); Eosinophils % (A) 1.8 %; HCT 39.7 % (37.2-46.3); Lymphocytes # (A) 1.26 X 10*3/uL (0.90-5.00); Lymphocytes % (A) 18.4 %; MCH 30.4 pg (27.0-32.0); MCHC 32.7 g/dL (32.0-37.0); MCV 92.8 FL (80.0-97.0); Monocytes % (A) 8.8 %; NRBC Per 100 WBC 0 X 10*3/uL (0.00-0.01); Neutrophils # (A) 4.79 X 10*3/uL (1.80-7.70); Neutrophils % (A) 69.8 %; Platelet Count 225 X 10*3/uL (140-440); RBC 4.28 X 10*6/uL (4.10-5.20); RDW 13.2 % (11.5-14.5); WBC 6.85 X 10*3/uL (4.50-10.00)
[2024-06-14 16:27] LABS: Albumin 4.5 g/dL (3.8-4.9); BUN/Creat Ratio 21.95 Ratio (12.00-20.00); Blood Urea Nitrogen 41.7 mg/dL (9.0-27.0); Calcium 9.2 mg/dL (8.7-10.3); Carbon Dioxide 22.6 mmol/L (21.6-31.8); Chloride 103 mmol/L (96-109); Glucose 89 mg/dL (70-110); Iron 87 UG/DL (50-170); Magnesium 2.1 mg/dL (1.5-2.4); Phosphorus 4.3 mg/dL (2.4-5.1); Potassium 4.4 mmol/L (3.5-5.5); Sodium 138 mmol/L (135-145); Total Iron Binding Capacity 399 UG/DL (228-460); Uric Acid 7.3 mg/dL (2.9-7.7)
[2024-06-14 19:01] LABS: Color,Urine Yellow (Yellow)
[2024-06-14 19:02] LABS: Appearance,Urine Clear (Clear); Bilirubin,Urine Negative (Negative); Blood,Urine Negative (Negative); Ketones,Urine Negative (Negative); Nitrite,Urine Negative (Negative); Specific Gravity,Urine 1.008 (1.001-1.030); Urobilinogen,Urine 0.2 E.U./DL
[2024-06-14 19:09] LABS: Bacteria,Urine None Seen (None Seen)
[2024-06-15 09:58] LABS: Microalbumin Creatinine Ratio <21 mg/g Cr (0-30); Urine Creatinine 58.2 mg/dL (28.0-217.0)
== END | disposition home or self-care (01) ==
LOC: LABWHC1 07:48
PROVIDERS: ATTEND Nurse Practitioner Family
DX: N18.32 Chronic kidney disease, stage 3b (principal); D63.1 Anemia in chronic kidney disease; E55.9 Vitamin D deficiency, unspecified; N25.81 Secondary hyperparathyroidism of renal origin; M10.9 Gout, unspecified; N39.0 Urinary tract infection, site not specified; R80.9 Proteinuria, unspecified
CPT/HCPCS: 36415; 80048; 81001; 82040; 82043; 82306; 82570; 82728; 83540; 83550; 83735; 83970; 84100; 84550; 85025

== ENCOUNTER → 2024-06-29 | Outpatient (CLI) | payer MEDICARE, BC ==
[2024-06-29 15:37] LABS: BUN/Creat Ratio 15.28 Ratio (12.00-20.00); Blood Urea Nitrogen 27.5 mg/dL (9.0-27.0); Calcium 9.2 mg/dL (8.7-10.3); Chloride 100 mmol/L (96-109); Glucose 93 mg/dL (70-110); Potassium 4.8 mmol/L (3.5-5.5); Sodium 135 mmol/L (135-145)
== END | disposition home or self-care (01) ==
LOC: LABWHC1 07:56
PROVIDERS: ATTEND Internal Medicine Nephrology
DX: N18.32 Chronic kidney disease, stage 3b (principal)
CPT/HCPCS: 36415; 80048

== ENCOUNTER → 2024-07-04 | Outpatient (CLI) | payer MEDICARE, BC ==
--- NOTE | 2024-07-04 13:44 | US ---
EXAMINATION TYPE: US kidneys/renal and bladder DATE OF EXAM: 07/04/2024 COMPARISON: 04/25/2020 CLINICAL INDICATION: Female, 73 years old with history of N18.32 CHRONIC KIDNEY DISEASE, STAGE 3B; CK D3 TECHNIQUE: Grayscale imaging of the bilateral kidneys and urinary bladder: FINDINGS: EXAM MEASUREMENTS: Right Kidney: 8.2 x 3.7 x 2.5 cm Left Kidney: 9.2 x 3.9 x 3.2 cm Post Void Residual Volume: 0 mL Right Kidney: No hydronephrosis or masses seen Left Kidney: No hydronephrosis or masses seen Bladder: Anechoic Normal Post Void Residual: yes A cortical thickness lower limits of normal measuring 8 mm bilaterally. Echogenicity maintained. IMPRESSION: No hydronephrosis or nephrolithiasis. [facility], , 07/04/2024 1:42 PM
== END | disposition home or self-care (01) ==
LOC: RADUSWWP 13:04
PROVIDERS: ATTEND Internal Medicine Nephrology
DX: N18.32 Chronic kidney disease, stage 3b (principal)
CPT/HCPCS: 76770

== ENCOUNTER → 2024-09-23 | Outpatient (CLI) | payer MEDICARE, BC ==
[2024-09-23 10:04] LABS: Appearance,Urine Clear (Clear); Bacteria,Urine Rare /hpf; Bilirubin,Urine Negative (Negative); Blood,Urine Negative (Negative); Color,Urine Colorless; Glucose,Urine (UA) Negative (Negative); Ketones,Urine Negative (Negative); Leukocyte Esterase,Urine Small (Negative); Mucus,Urine Rare /hpf; Nitrite,Urine Negative (Negative); Protein,Urine Negative (Negative); RBC,Urine <1 /hpf (0-5); Specific Gravity,Urine 1.006 (1.001-1.035); Squamous Epithelial Cell,Urine 1 /hpf (0-4); Urobilinogen,Urine <2.0 mg/dL (<2.0); WBC,Urine 8 /hpf (0-5)
[2024-09-23 13:39] LABS: Basophils # (A) 0.04 X 10*3/uL (0.00-0.10); Basophils % (A) 0.5 %; Eosinophils # (A) 0.14 X 10*3/uL (0.04-0.35); Eosinophils % (A) 1.8 %; HCT 36.3 % (37.2-46.3); HGB 11.7 g/dL (12.0-15.0); Lymphocytes # (A) 1.41 X 10*3/uL (0.90-5.00); Lymphocytes % (A) 18.2 %; MCH 30.5 pg (27.0-32.0); MCHC 32.2 g/dL (32.0-37.0); MCV 94.8 FL (80.0-97.0); Mean Platelet Volume 10.3 FL (9.5-12.2); Monocytes # (A) 0.78 X 10*3/uL (0.20-1.00); Monocytes % (A) 10.1 %; NRBC Per 100 WBC 0 X 10*3/uL (0.00-0.01); Neutrophils # (A) 5.35 X 10*3/uL (1.80-7.70); Neutrophils % (A) 69.3 %; Platelet Count 283 X 10*3/uL (140-440); RBC 3.83 X 10*6/uL (4.10-5.20); RDW 12.8 % (11.5-14.5); WBC 7.73 X 10*3/uL (4.50-10.00)
[2024-09-23 14:27] LABS: Microalbumin Creatinine Ratio <18 mg/g Cr (0-30); Urine Creatinine 66.5 mg/dL (28.0-217.0)
[2024-09-23 14:49] LABS: Albumin 4.1 g/dL (3.8-4.9); BUN/Creat Ratio 18.19 Ratio (12.00-20.00); Blood Urea Nitrogen 29.1 mg/dL (9.0-27.0); Calcium 9.2 mg/dL (8.7-10.3); Chloride 108 mmol/L (96-109); Ferritin 88.2 ng/mL (10.0-291.0); Glucose 91 mg/dL (70-110); Iron 83 UG/DL (50-170); Magnesium 1.9 mg/dL (1.5-2.4); Phosphorus 4.1 mg/dL (2.4-5.1); Potassium 4.9 mmol/L (3.5-5.5); Sodium 136 mmol/L (135-145); Total Iron Binding Capacity 343 UG/DL (228-460); Uric Acid 6.4 mg/dL (2.9-7.7)
== END | disposition home or self-care (01) ==
LOC: LABWHC1 08:00
PROVIDERS: ATTEND Internal Medicine Nephrology
DX: E55.9 Vitamin D deficiency, unspecified (principal); N25.81 Secondary hyperparathyroidism of renal origin; M10.9 Gout, unspecified; N39.0 Urinary tract infection, site not specified; R80.9 Proteinuria, unspecified; N18.32 Chronic kidney disease, stage 3b; D63.1 Anemia in chronic kidney disease
CPT/HCPCS: 36415; 80048; 81001; 82040; 82043; 82306; 82570; 82728; 83540; 83550; 83735; 84100; 84550; 85025

== ENCOUNTER → 2024-12-04 | Outpatient (CLI) | payer MEDICARE, BC ==
--- NOTE | 2024-12-04 08:44 | MM ---
Reason for Exam: Screening (asymptomatic). Last mammogram was performed 1 year(s) and 1 month(s) ago. Patient History: Menarche at age 11. First Full-Term at age 16. Left ovary removed at age 31. Right ovary removed at age 31. Hysterectomy at age 31. Postmenopausal. Other cancer. Patient used Estrogen for 15 years. Hormonal Contraceptives, starting at age 18 for 2 years. Risk Values: Akosua 5 year model risk: 1.3%. NCI Lifetime model risk: 2.6%. Prior Study Comparison: 04/21/2018 Bilateral Screening Mammogram, [facility]. 05/05/2022 Bilateral MG 3D screening mammo w/cad, [facility]. 11/01/2023 Bilateral MG 3D screening mammo w/cad, [facility]. Tissue Density: The breasts are heterogeneously dense, which may obscure small masses. Findings: Analyzed By CAD. Right breast: There is no suspicious group of microcalcifications or new suspicious mass. Left breast: Left breast area of architectural distortion left CC view middle depth 5 cm from the nipple slightly medial. Possibly upper aspect on MLO view at middle depth. Overall Assessment: Incomplete: need additional imaging evaluation, BI-RAD 0 Management: Diagnostic Mammogram of the left breast. [facility] will attempt to contact patient to return for supplemental views and ultrasound if indicated. Patient should continue monthly self-breast exams. A clinical breast exam by your physician is recommended on an annual basis. This exam should not preclude additional follow-up of suspicious palpable abnormalities. Note on Akosua scores and lifetime risk: 1. A Akosua score greater than 3% is considered moderate risk. If this is the case, consider specialist referral to assess eligibility for a risk reducing agent. 2. If overall lifetime risk for the development of breast cancer is 20% or higher, the patient may qualify for future screening with alternating mammogram and breast MRI. [facility], , 12/04/2024 8:26 AM. Electronically signed and approved by: Osei Winkler DO
== END | disposition home or self-care (01) ==
LOC: RADMAMWWP 07:23
PROVIDERS: ATTEND Family Medicine
DX: Z12.31 Encounter for screening mammogram for malignant neoplasm of breast (principal); R92.333 Mammographic heterogeneous density, bilateral breasts; Z78.0 Asymptomatic menopausal state; Z92.0 Personal history of contraception
CPT/HCPCS: 77063; 77067

== ENCOUNTER → 2024-12-06 | Outpatient (CLI) | payer MEDICARE, BC ==
--- NOTE | 2024-12-06 08:12 | MM ---
Reason for Exam: Additional evaluation requested from abnormal screening. Last screening mammogram was performed less than 1 month ago. Patient History: Menarche at age 11. First Full-Term at age 16. Left ovary removed at age 31. Right ovary removed at age 31. Hysterectomy at age 31. Postmenopausal. Other cancer. Patient used Estrogen for 15 years. Hormonal Contraceptives, starting at age 18 for 2 years. Risk Values: Akosua 5 year model risk: 1.3%. NCI Lifetime model risk: 2.6%. Prior Study Comparison: 05/05/2022 Bilateral MG 3D screening mammo w/cad, [facility]. 11/01/2023 Bilateral MG 3D screening mammo w/cad, [facility]. 12/04/2024 Bilateral MG 3D screening mammo w/cad, [facility]. Tissue Density: Left: The breasts are heterogeneously dense, which may obscure small masses. Findings: Analyzed By CAD. Area of concern/asymmetry compresses out on spot compression imaging. No suspicious masses, calcifications or distortions. Overall Assessment: Benign, BI-RAD 2 Management: Screening Mammogram of both breasts in 1 year. Results were given to the patient verbally at the time of exam. Patient should continue monthly self-breast exams. A clinical breast exam by your physician is recommended on an annual basis. This exam should not preclude additional follow-up of suspicious palpable abnormalities. Note on Akosua scores and lifetime risk: 1. A Akosua score greater than 3% is considered moderate risk. If this is the case, consider specialist referral to assess eligibility for a risk reducing agent. 2. If overall lifetime risk for the development of breast cancer is 20% or higher, the patient may qualify for future screening with alternating mammogram and breast MRI. [facility], , 12/06/2024 7:54 AM. Electronically signed and approved by: Osei Winkler DO
== END | disposition home or self-care (01) ==
LOC: RADMAMWWP 07:35
PROVIDERS: ATTEND Family Medicine
DX: R92.8 Other abnormal and inconclusive findings on diagnostic imaging of breast (principal); R92.332 Mammographic heterogeneous density, left breast; Z78.0 Asymptomatic menopausal state; Z80.3 Family history of malignant neoplasm of breast
CPT/HCPCS: 77065; G0279; 77061

== ENCOUNTER → 2025-01-22 | Outpatient (CLI) | payer MEDICARE, BC ==
[2025-01-22 10:48] LABS: HCT 38.3 % (37.2-46.3); HGB 12.4 g/dL (12.0-15.0); MCH 30.2 pg (27.0-32.0); MCHC 32.4 g/dL (32.0-37.0); MCV 93.2 FL (80.0-97.0); NRBC Per 100 WBC 0 X 10*3/uL (0.00-0.01); Platelet Count 295 X 10*3/uL (140-440); RBC 4.11 X 10*6/uL (4.10-5.20); RDW 12.9 % (11.5-14.5); WBC 8.38 X 10*3/uL (4.50-10.00)
[2025-01-22 10:49] LABS: Basophils # (A) 0.05 X 10*3/uL (0.00-0.10); Basophils % (A) 0.6 %; Eosinophils # (A) 0.17 X 10*3/uL (0.04-0.35); Eosinophils % (A) 2.0 %; Immature Grans, Automated 0.40 %; Lymphocytes # (A) 1.75 X 10*3/uL (0.90-5.00); Lymphocytes % (A) 20.9 %; Monocytes # (A) 0.75 X 10*3/uL (0.20-1.00); Monocytes % (A) 8.9 %; Neutrophils # (A) 5.63 X 10*3/uL (1.80-7.70); Neutrophils % (A) 67.2 %
[2025-01-22 11:06] LABS: Bacteria,Urine None Seen (None Seen); Bilirubin,Urine Negative (Negative); Blood,Urine Negative (Negative); Color,Urine Yellow (Yellow); Ketones,Urine Negative (Negative); Nitrite,Urine Negative (Negative); PH, Urine 5.5; Specific Gravity,Urine 1.010 (1.001-1.030); Urobilinogen,Urine 0.2 E.U./DL
[2025-01-22 11:18] LABS: Magnesium 1.9 mg/dL (1.5-2.4); Uric Acid 6.1 mg/dL (2.9-7.7)
[2025-01-22 11:19] LABS: Albumin 4.3 g/dL (3.8-4.9); Anion Gap 12.50 mmol/L (4.00-12.00); BUN/Creat Ratio 17.17 Ratio (12.00-20.00); Blood Urea Nitrogen 30.9 mg/dL (9.0-27.0); Calcium 9.2 mg/dL (8.7-10.3); Carbon Dioxide 21.5 mmol/L (21.6-31.8); Chloride 106 mmol/L (96-109); Ferritin 94.6 ng/mL (10.0-291.0); Glucose 94 mg/dL (70-110); Iron 98 UG/DL (50-170); Potassium 4.4 mmol/L (3.5-5.5); Sodium 140 mmol/L (135-145); Total Iron Binding Capacity 360 UG/DL (228-460)
== END | disposition home or self-care (01) ==
LOC: LABWHC1 07:41
PROVIDERS: ATTEND Internal Medicine Nephrology
DX: N18.32 Chronic kidney disease, stage 3b (principal); E55.9 Vitamin D deficiency, unspecified; N25.81 Secondary hyperparathyroidism of renal origin; N39.0 Urinary tract infection, site not specified; D64.9 Anemia, unspecified
CPT/HCPCS: 36415; 80048; 81001; 82040; 82043; 82306; 82570; 82728; 83540; 83550; 83735; 83970; 84100; 84550; 85025